=== PATIENT | female | born 1970 | race Caucasian/White ===

== ENCOUNTER 2018-04-29 08:22 | Day surgery (SDC) | payer BC, SELFPAY ==
--- NOTE | 2018-04-29 08:28 | EKG12_ITS ---
Test Reason : PRE OP Blood Pressure : / mmHG Vent. Rate : 080 BPM Atrial Rate : 080 BPM P-R Int : 138 ms QRS Dur : 086 ms QT Int : 376 ms P-R-T Axes : 053 045 053 degrees QTc Int : 433 ms Normal sinus rhythm Low voltage QRS (limb leads) Confirmed by PRINCESS MARSHALL, HARPREET ([id number]), material expeditor LEE LEDESMA ([id number]) on 05/04/2018 11:23:07 AM Referred By: Terri Roman Confirmed By:HARPREET SÁNCHEZ MD
[2018-04-29 08:49] LABS: Hematocrit 45.9 % (37-47); Hemoglobin 15.3 g/dl (12.0-15.0); Mean Corp Hgb Conc 33.3 g/gl (32-36); Mean Corpuscular Hgb 32.1 pg (27.0-32.0); Mean Corpuscular Volume 96.2 fL (81-99); Mean Platelet Vol. 10.2 fl (6.2-12.0); Platelet Count 180 K/mm3 (150-450); RBC Distribution Width CV 13.7 % (11.6-14.6); RBC Distribution Width SD 48.8 fl (35.1-43.9); Red Blood Count 4.77 M/mm3 (4.2-5.4); White Blood Count 8.2 K/mm3 (4.4-11.0)
[2018-04-29 08:51] LABS: Scan Indicated on CBC? Y/N NO
[2018-04-29 08:58] VITALS: BP 108/71; PULSE 88; RESP 16; TEMP 37.1; O2SAT 96; BMI 23.6
[2018-04-29 08:59] LABS: International Normalized Ratio 1.1; Partial Thromboplast Time 26.8 Seconds (24.1-36.2); Prothrombin Time (Protime)PT. 13.7 SECONDS (11.7-14.9)
[2018-04-29 09:04] LABS: AST(SGOT) 11 U/L (15-37); Alanine Aminotransfer ALT/SGPT 13 U/L (13-56); Albumin, Serum 3.3 g/dL (3.2-5.0); Alkaline Phosphatase 62 U/L (45-117); Bilirubin, Direct 0.14 mg/dL (0.00-0.30); Globulin 3.6 g/dL (2.2-4.2); Protein, Total 6.9 g/dL (6.4-8.2)
[2018-04-29] MEDS: Cefazolin 2 GM in 0.9% Normal Saline 100 ML IV (09:50)
--- NOTE | 2018-04-29 09:53 | DCINST_ITS ---
Discharge Diet: Light diet - advance as tolerated Discharge Activity: May not drive while taking narcotic pain medications. May shower in (days): 1 Ice area for (Minutes): 20 Lifting Restrictions: no lifting >20 lbs for 4 weeks Call your doctor if your incision/area has: Continuous Slow Oozing, Sudden Increased Bleeding, Increased Pain/ Swelling, Increased Redness, Foul Smelling Discharge, Swelling at the incision site Call your doctor if you observe: Fever of 101 or Higher Remove Dressing in (days):: 2 Additional Instructions: take colace-stool softener when taking percocet, ok to take ibuprofen 400-600 mg PO Q6h PRN between doses of percocet, no tylenol since it is already in percocet. take all pain meds with food. Allergies/Adverse Reactions: Allergies adhesive tape Allergy (Verified 04/22/18 14:01) Rash Medications to take at Discharge Oxycodone HCl/Acetaminophen [Percocet 5/325] 1 - 2 tablet PO Q6H PRN PRN 4 Days #30 tablet 04/29/18 Tamoxifen Citrate 20 mg PO DAILY 04/29/18 The following prescriptions were given: Oxycodone HCl/Acetaminophen [Percocet 5/325] 1 - 2 tablet PO Q6H PRN PRN 4 Days #30 tablet PRN Reason: Pain Primary Care Physician: Lauren Luna [Primary Care Provider] - Test Results: Test results from this visit will be discussed in further detail at your follow- up appointment, if applicable. Please Follow Up With: Terri Roman MD - call [phone] after 5PM/ weekends with any concerns When: call for f/u appt in 2 weeks will discuss return to work at that time. Proposed Discharge Date: 04/29/18
--- NOTE | 2018-04-29 10:00 | HERN_PTH ---
PATIENT: LORENA NUR LOC: [facility] [place] U#:[id number] AGE/SX: 47/F ROOM: RE04/29/[address]: Dr. Terri Roman MD : 1970 BED: DIS: 04/29/2018 SPEC #: [id number] RECD: 04/29/18 12:47 STATUS: RUDOLPH KAREN #: [id number] JONAH: 04/29/18 10:[address]: Terri Roman DEPT: SURGICAL PATHOLOGY RECD BY: Rodrigo Wasserman ENTERED: 04/29/18 13:06 SP TYPE: Hernia OTHR DR: Dr. Lauren Luna MD Tissues: HERNIA Procedures: Surgery Specimen Level II HEADER OPERATION: Right inguinal hernia repair with mesh, ventral hernia repair PRE-OP DIAGNOSIS: Right inguinal hernia, ventral hernia TISSUE SUBMITTED: Right inguinal hernia sac MICROSCOPIC DIAGNOSIS Soft tissue of right inguinal region, excision: Fibrofatty tissue consistent with hernia sac. AM:adolph 05/02/18 MICROSCOPIC DESCRIPTION Slides are reviewed. GROSS DESCRIPTION Received in fixative is one container labeled with the patient's name and designated right inguinal hernia sac. The specimen consists of a piece of gonzales soft tissue measuring 2 x 1 x 0.5 cm. The specimen is bisected and submitted entirely in one cassette. / SJ:adolph 04/29/18 TC:5 CPT: 48324
[2018-04-29] MEDS: Bupivacaine 0.25% 30 ML Vial (10:13)
--- NOTE | 2018-04-29 11:37 | PCM.OPRPT ---
Report of Operation Date of Procedure: 04/29/18 Pre-Operative Diagnosis: Ventral hernia ?2, right inguinal hernia Post-Operative Diagnosis: Same Surgery/Procedure Performed:: Repair of right inguinal hernia with mesh, repair of ventral hernias with mesh banking services officer: Arlette Farias Type of Anesthesia:: General/Supplemental Anesthesiologist: Watson Hannah Special Medications: Ancef 2 g IV ?1 Specimen's removed: Right inguinal hernia sac Estimated Blood Loss (mL): <10 cc Fluids Replaced: 700 cc Description of Procedure: Indications: This is a 47-year-old female who developed ventral hernias and a right inguinal hernia. Ventral hernia repair with mesh and inguinal hernia repair with mesh was elected. Description procedure: The patient was taken to the operating room. A timeout was completed verifying correct patient, procedure, site, positioning, and special equipment prior to beginning procedure. General anesthesia was induced. The abdomen and bilateral groins were prepped and draped in usual sterile fashion. An incision was marked in the natural skin crease and planned in the near the pubic tubercle. A field block was produced by raising skin wheals along the proposed incision in a skin wound was raised about 1 cm medial to the anterior superior iliac spine using 0.25% Marcaine for a total of 16 mL used throughout the procedure. Skin incision was made with the knife and deepened through the Cornelius and Camper's fascia with electrocautery until the aponeurosis of the external oblique was a identified. This was cleaned and the external ring exposed. Hemostasis was achieved in the wound. An incision was made in the midpoint of the external oblique aponeurosis in the direction of its fibers. The ilioinguinal nerve was identified and protected throughout the dissection. Flaps of the external oblique were developed cephalad and inferiorly. The round ligament was identified. It was gently dissected free at the pubic tubercle and encircled with umbilical tape. Attention was directed to the anterior medial aspect of the cord where an indirect hernia sac was identified. The sac was carefully dissected free from the cord down to the level of the internal ring; however, there were tight adhesions between the distal sac and the round ligament, ilioinguinal nerve. The sac was opened and contents reduced. A finger was passed into the peritoneal cavity and the floor of the inguinal canal was assessed and found to be adequate. The femoral canal was palpated and no hernia identified. The sac was twisted and suture ligated with a 2-0 silk. Redundant sac was excised and submitted to pathology. The stump of the sac was checked for hemostasis and allowed to retract into the abdomen. The ilioinguinal nerve was ligated. Attention then turned to the floor of the canal which appeared to be weakened without a well-defined defect or sac. A Bard keyhole mesh was cut to the appropriate size after suturing the hole with 2-0 silk [id number] suture. Beginning at the pubic tubercle, the mesh was sutured to the inguinal ligament inferiorly and the conjoined tendon superiorly using 2 continuous running sutures of 2-0 PDS sutures. Care was taken to assure the mesh was placed in the last fashion to avoid excess tension and no neurovascular structures were caught in the repair. Hemostasis was again checked. The vocal tape was removed. Area was irrigated with saline. External oblique aponeurosis was closed running suture of 3-0 Vicryl, taking care not to catch the ilioinguinal nerve in the suture line. Cornelius's fascia was closed with interrupted sutures of 3-0 Vicryl. Next attention was turned to the supraumbilical ventral hernias which were located with bedside ultrasound. Vertical midline supra umbilical incision was made with 10 blade scalpel. This was deepened to the fascia with hemostats and electrocautery. The larger of the 2 hernias was identified and the fascia was cleared around the hernia fat was allowed to reduce the defect was about 1.2 cm x 0.8 cm. About a centimeter inferior to this defect there is also a smaller defect that was only about 0.5 x 0.5 mm which again the fascia was cleared on the hernia and the fat was reduced. A figure of 8 1-0 Nurolon suture was used to close the smaller of the 2 ventral hernias. The [address] small [place] with strap hernia patch was used in the larger hernia and sutured the straps with 1-0 Nurolon and the defect was also closed with [id number] 1-0 Nurolon. Wound was irrigated and hemostasis was assured. Interrupted subcutaneous sutures of 3-0 Vicryl were placed. Skin of both incisions were closed with was closed running subcuticular suture of 4-0 Monocryl with Steri-Strips gauze and OpSite. Patient tolerated the procedure well and sent to the postanesthesia care in stable condition. Grafts/Implants Used: BARD Keyhole LOT [id number], VENTRALEX ST Hernia small LOT [id number] - Complications none
--- NOTE | 2018-04-29 11:46 | OP.PCM_ITS ---
Report of Operation Date of Procedure: 04/29/18 Pre-Operative Diagnosis: Ventral hernia ?2, right inguinal hernia Post-Operative Diagnosis: Same Surgery/Procedure Performed:: Repair of right inguinal hernia with mesh, repair of ventral hernias with mesh saas architect: Arlette Farias Type of Anesthesia:: General/Supplemental Anesthesiologist: Watson Hannah Special Medications: Ancef 2 g IV ?1 Specimen's removed: Right inguinal hernia sac Estimated Blood Loss (mL): <10 cc Fluids Replaced: 700 cc Description of Procedure: Indications: This is a 47-year-old female who developed ventral hernias and a right inguinal hernia. Ventral hernia repair with mesh and inguinal hernia repair with mesh was elected. Description procedure: The patient was taken to the operating room. A timeout was completed verifying correct patient, procedure, site, positioning, and special equipment prior to beginning procedure. General anesthesia was induced. The abdomen and bilateral groins were prepped and draped in usual sterile fashion. An incision was marked in the natural skin crease and planned in the near the pubic tubercle. A field block was produced by raising skin wheals along the proposed incision in a skin wound was raised about 1 cm medial to the anterior superior iliac spine using 0.25% Marcaine for a total of 16 mL used throughout the procedure. Skin incision was made with the knife and deepened through the Cornelius and Camper 's fascia with electrocautery until the aponeurosis of the external oblique was a identified. This was cleaned and the external ring exposed. Hemostasis was achieved in the wound. An incision was made in the midpoint of the external oblique aponeurosis in the direction of its fibers. The ilioinguinal nerve was identified and protected throughout the dissection. Flaps of the external oblique were developed cephalad and inferiorly. The round ligament was identified. It was gently dissected free at the pubic tubercle and encircled with umbilical tape. Attention was directed to the anterior medial aspect of the cord where an indirect hernia sac was identified. The sac was carefully dissected free from the cord down to the level of the internal ring; however, there were tight adhesions between the distal sac and the round ligament, ilioinguinal nerve. The sac was opened and contents reduced. A finger was passed into the peritoneal cavity and the floor of the inguinal canal was assessed and found to be adequate. The femoral canal was palpated and no hernia identified. The sac was twisted and suture ligated with a 2-0 silk. Redundant sac was excised and submitted to pathology. The stump of the sac was checked for hemostasis and allowed to retract into the abdomen. The ilioinguinal nerve was ligated. Attention then turned to the floor of the canal which appeared to be weakened without a well-defined defect or sac. A Bard keyhole mesh was cut to the appropriate size after suturing the hole with 2-0 silk diuspw-mu-acwjq suture. Beginning at the pubic tubercle, the mesh was sutured to the inguinal ligament inferiorly and the conjoined tendon superiorly using 2 continuous running sutures of 2-0 PDS sutures. Care was taken to assure the mesh was placed in the last fashion to avoid excess tension and no neurovascular structures were caught in the repair. Hemostasis was again checked. The vocal tape was removed. Area was irrigated with saline. External oblique aponeurosis was closed running suture of 3-0 Vicryl, taking care not to catch the ilioinguinal nerve in the suture line. Cornelius's fascia was closed with interrupted sutures of 3-0 Vicryl. Next attention was turned to the supraumbilical ventral hernias which were located with bedside ultrasound. Vertical midline supra umbilical incision was made with 10 blade scalpel. This was deepened to the fascia with hemostats and electrocautery. The larger of the 2 hernias was identified and the fascia was cleared around the hernia fat was allowed to reduce the defect was about 1.2 cm x 0.8 cm. About a centimeter inferior to this defect there is also a smaller defect that was only about 0.5 x 0.5 mm which again the fascia was cleared on the hernia and the fat was reduced. A figure of 8 1-0 Nurolon suture was used to close the smaller of the 2 ventral hernias. The ventralex [address] small [place] with strap hernia patch was used in the larger hernia and sutured the straps with 1-0 Nurolon and the defect was also closed with [id number] 1-0 Nurolon. Wound was irrigated and hemostasis was assured. Interrupted subcutaneous sutures of 3-0 Vicryl were placed. Skin of both incisions were closed with was closed running subcuticular suture of 4-0 Monocryl with Steri- Strips gauze and OpSite. Patient tolerated the procedure well and sent to the postanesthesia care in stable condition. Grafts/Implants Used: BARD Keyhole LOT [id number], VENTRALEX ST Hernia small LOT [id number] - Complications none
[2018-04-29 12:01] VITALS: BP 108/71; BP 114/66; PULSE 74; RESP 16; TEMP 36.3; O2SAT 95
[2018-04-29 12:15] VITALS: BP 108/68; BP 108/71; PULSE 67; RESP 18; O2SAT 94
[2018-04-29 12:28] VITALS: BP 107/76; BP 108/71; PULSE 64; RESP 18; TEMP 36.1; O2SAT 92
[2018-04-29] MEDS: oxyCODONE 5 MG Tablet PO (12:47)
[2018-04-29 13:07] VITALS: BP 108/71
== END 2018-04-29 13:13 | disposition home or self-care (01) ==
LOC: SDC 08:23 → AC 08:23
PROVIDERS: Family Provider Family Medicine; PCP Family Medicine; Visit Provider Surgery
PROC: (CPT 49505; principal; 2018-04-29 09:45)
DX: K43.9 Ventral hernia without obstruction or gangrene (principal); K40.90 Unilateral inguinal hernia, without obstruction or gangrene, not specified as recurrent; F17.200 Nicotine dependence, unspecified, uncomplicated; Z85.3 Personal history of malignant neoplasm of breast; Z85.828 Personal history of other malignant neoplasm of skin; Z79.899 Other long term (current) drug therapy
CPT/HCPCS: 49505; 49560; 49568; 36415; 80076; 85027; 85610; 85730; 88302; 93005; J7120; C1781; J2405

== ENCOUNTER → 2018-05-23 12:13 | Outpatient (CLI) | payer BC, SELFPAY ==
--- NOTE | 2018-05-23 08:00 | ASPS_PTH ---
PATIENT: LORENA NUR LOC: [facility]#:[id number] AGE/SX: 54/F ROOM: RE05/23/[address]: Dr. Herrera Cho MD : 1970 BED: DIS: SPEC #: [id number] RECD: 05/23/18 12:00 STATUS: RUDOLPH KAREN #: [id number] JONAH: 05/23/18 08:[address]: Herrera Cho DEPT: CYTOLOGY RECD BY: Jose Hernandez ENTERED: 05/23/18 13:24 SP TYPE: ASPIRATION OTHR DR: Dr. Lauren Luna MD Tissues: A - Thyroid gland, NOS B - Thyroid gland, NOS Procedures: Special Stain Group II Cytology Other HEADER OPERATION: Ultrasound guided fine needle aspiration, bilateral thyroid PRE-OP DIAGNOSIS: Multinodular goiter E04.2 TISSUE SUBMITTED: A - FNA, left thyroid, B - FNA, Right thyroid DIAGNOSIS CYTOLOGY A. Fine needle aspiration, left thyroid nodule (smears): Adequate for evaluation. Benign, consistent with colloid nodule. B. Fine needle aspiration, right thyroid nodule (smears): Adequate for evaluation. Benign, consistent with colloid nodule. AM:adolph 05/24/18 COMMENT Immediate cytologic evaluation to determine adequacy is not applicable. CYTOLOGY STUDY Slides are reviewed. CYTOLOGY GROSS A - Received are 18 smears labeled with the patient's name and designated per the requisition as FNA, left thyroid. Submitted for staining. B - Received are 18 smears labeled with the patient's name and designated per the requisition as FNA, right thyroid. Submitted for staining. /Casey 05/23/18 TC:5 CPT: 86286 x2
== END ==
PROVIDERS: Family Provider Family Medicine; PCP Family Medicine; Visit Provider Surgery
DX: E04.2 Nontoxic multinodular goiter (principal)
CPT/HCPCS: 88161; 88313

== ENCOUNTER → 2018-06-02 15:25 | Outpatient (CLI) | payer BC, SELFPAY | PROVIDERS: Family Provider Family Medicine; PCP Family Medicine; Visit Provider Nurse Practitioner | DX: Z12.31 Encounter for screening mammogram for malignant neoplasm of breast (principal); C50.412 Malignant neoplasm of upper-outer quadrant of left female breast; Z17.0 Estrogen receptor positive status [ER+] | CPT/HCPCS: 77063; 77067 ==

== ENCOUNTER → 2018-07-13 10:40 | Outpatient (CLI) | payer BC, SELFPAY ==
[2018-07-13 12:24] LABS: Free T3 3.1 pg/mL (2.18-3.98); T4 Free Direct 0.92 ng/dL (0.76-1.46); Thyroid Stim Hormone (TSH) 0.24 uIU/mL (0.358-3.74)
[2018-07-14 13:36] LABS: Thyroid Peroxidase AB 10 IU/mL (0-34)
== END ==
PROVIDERS: Family Provider Family Medicine; PCP Family Medicine; Referring Provider Nurse Practitioner; Visit Provider Nurse Practitioner
DX: E05.90 Thyrotoxicosis, unspecified without thyrotoxic crisis or storm (principal)
CPT/HCPCS: 36415; 84439; 84443; 84481; 86376

== ENCOUNTER → 2018-07-27 07:45 | Outpatient (CLI) | payer BC, SELFPAY ==
[2018-07-27 09:38] LABS: Free T3 3.3 pg/mL (2.18-3.98); T4 Free Direct 0.96 ng/dL (0.76-1.46); Thyroid Stim Hormone (TSH) 0.23 uIU/mL (0.358-3.74)
== END ==
PROVIDERS: Family Provider Family Medicine; PCP Family Medicine; Referring Provider Nurse Practitioner; Visit Provider Nurse Practitioner
DX: E05.90 Thyrotoxicosis, unspecified without thyrotoxic crisis or storm (principal)
CPT/HCPCS: 36415; 84439; 84443; 84481

== ENCOUNTER → 2018-08-23 17:14 | Outpatient (CLI) | payer BC, SELFPAY ==
[2018-07-13 09:20] VITALS: BMI 23.6
[2018-08-23 18:34] LABS: Free T3 3.3 pg/mL (2.18-3.98)
--- OUTSIDE RECORDS SUMMARY | 2018-10-19 09:31 | XMS RPT_ITS ---
:1970 Author Organization OHIP Support Name Relationship Address Phone CROP CHRISTINA Unavailable [address] + [place] [address] CHELSY, BASIL Unavailable [address] + [place] [address] CROP CHRISTINA Unavailable [address] + [place] [address] CHELSY, BASIL Unavailable [address] + [place] [address] CROP CHRISTINA Unavailable [address] + [place] [address] CHELSY, BASIL Unavailable [address] + [place] [address] CROP CHRISTINA Unavailable [address] + [place] [address] CHELSY, BASIL Unavailable [address] + [place] [address] CROP CHRISTINA Unavailable [address] + [place] [address] CHELSY, BASIL Unavailable [address] + [place] [address] CROP CHRISTINA Unavailable [address] + [place] [address] CHELSY, BASIL Unavailable [address] + [place] [address] CROP CHRISTINA Unavailable [address] + [place] [address] CHELSY, BASIL Unavailable [address] + [place] [address] CROP CHRISTINA Unavailable [address] + [place] [address] CHELSY, BASIL Unavailable [address] + [place] [address] CROP CHRISTINA Unavailable [address] + [place] [address] CHELSY, BASIL Unavailable [address] + [place] [address] CROP CHRISTINA Unavailable [address] + [place] [address] CHELSY, BASIL Unavailable [address] + [place] [address] CROP CHRISTINA Unavailable [address] + [place] [address] CHELSY, BASIL Unavailable [address] + [place] [address] CROP CHRISTINA Unavailable [address] + [place] [address] CHELSY, BASIL Unavailable [address] + [place] [address] CROP CHRISTINA Unavailable [address] + [place] [address] CHELSY, BASIL Unavailable [address] + [place] [address] CROP CHRISTINA Unavailable [address] + [place] [address] CHELSY, BASIL Unavailable [address] + [place] [address] CROP CHRISTINA Unavailable [address] + [place] [address] CHELSY, BASIL Unavailable [address] + [place] [address] CROP CHRISTINA Unavailable [address] + [place] [address] CHELSY, BASIL Unavailable [address] + [place] [address] Blackwell, Basil Unavailable Unavailable + CROP CHRISTINA Unavailable [address] + [place] [address] CHELSY, BASIL Unavailable [address] + [place] [address] Chelsy, Basil Unavailable Unavailable + CROP CHRISTINA Unavailable [address] + [place] [address] CHELSY, BASIL Unavailable [address] + [place] [address] Care Team Providers Name Role Phone ANSELMO, DAESUNG Attending Unavailable MASCI, CARLTON A Referring Unavailable ANSELMO, DAESUNG Attending Unavailable ANSELMO, DAESUNG Attending Unavailable ANSELMO, DAESUNG Attending Unavailable ANSELMO, DAESUNG Attending Unavailable ANSELMO, DAESUNG Attending Unavailable ANSELMO, DAESUNG Attending Unavailable ANSELMO, DAESUNG Attending Unavailable ANSELMO, DAESUNG Attending Unavailable ANSELMO, DAESUNG Referring Unavailable GARCIA, MARIANA (SEROLOGY TECHNICIAN) Attending Unavailable MASCI, CARLTON A Referring Unavailable GARCIA, MARIANA (SEROLOGY TECHNICIAN) Attending Unavailable MASCI, CARLTON A Referring Unavailable GARCIA, MARIANA (SEROLOGY TECHNICIAN) Referring Unavailable GARCIA, MARIANA (SEROLOGY TECHNICIAN) Attending Unavailable MASCI, CARLTON A Referring Unavailable ANSELMO, DAROBERTUNG Attending Unavailable ANSELMO, DAESUNG Referring Unavailable Jeremy, Lauren Attending Unavailable Jeremy, Lauren Referring Unavailable Jeremy, Lauren Primary Care Unavailable Jeremy, Lauren Attending Unavailable Jeremy, Lauren Referring Unavailable Jeremy, Lauren Primary Care Unavailable Fifi Mathias STAFF NUCLEAR MEDICINE TECHNOLOGIST-C Attending Unavailable Fifi Mathias STAFF NUCLEAR MEDICINE TECHNOLOGIST-C Referring Unavailable Jeremy, Lauren Primary Care Unavailable Fifi Mathias STAFF NUCLEAR MEDICINE TECHNOLOGIST-C Attending Unavailable ShoFifi raymond STAFF NUCLEAR MEDICINE TECHNOLOGIST-C Referring Unavailable Jeremy, Lauren Primary Care Unavailable Robotham, Terri Attending Unavailable Jeremy, Lauren Referring Unavailable Jeremy, Lauren Primary Care Unavailable Robotham, Terri Attending Unavailable Robotham, Terri Referring Unavailable Jeremy, Lauren Primary Care Unavailable Robotham, Terri Consulting Unavailable Robotham, Terri Attending Unavailable Robotham, Terri Referring Unavailable Jeremy, Lauren Primary Care Unavailable Robotham, Terri Attending Unavailable Jeremy, Lauren Referring Unavailable Jeremy, Lauren Primary Care Unavailable Twin LakesHerrera Attending Unavailable Jeremy, Lauren Referring Unavailable Jeremy, Lauren Primary Care Unavailable Jeremy, Lauren Primary Care Unavailable Mariana Garcia STAFF NUCLEAR MEDICINE TECHNOLOGIST-C Attending Unavailable Robotham, Terri Attending Unavailable Jeremy, Lauren Referring Unavailable Marquis, Herrera Attending Unavailable Jeremy, Lauren Primary Care Unavailable Marquis, Herrera Referring Unavailable [place], Herrera Attending Unavailable Jeremy, Lauren Referring Unavailable Jeremy, Lauren Primary Care Unavailable Marquis, Herrera Attending Unavailable Jeremy, Lauren Referring Unavailable Jeremy, Lauren Primary Care Unavailable Fifi Mathias STAFF NUCLEAR MEDICINE TECHNOLOGIST-C Attending Unavailable ShookFifi STAFF NUCLEAR MEDICINE TECHNOLOGIST-C Referring Unavailable Jeremy, Lauren Primary Care Unavailable Fifi Mathias STAFF NUCLEAR MEDICINE TECHNOLOGIST-C Attending Unavailable Jeremy, Lauren Referring Unavailable Robotham, Terri Attending Unavailable MoodCarlton cook Attending Unavailable Robotham, Terri Referring Unavailable Robotham, Terri Attending Unavailable Jeremy, Lauren Referring Unavailable Jeremy, Lauren Primary Care Unavailable Fifi Mathias STAFF NUCLEAR MEDICINE TECHNOLOGIST-C Attending Unavailable Jeremy, Lauren Referring Unavailable PROBLEMS PROBLEMS DATE TYPE CONDITION / CODE ATTENDING STATUS SOURCE Unknown E07.9 - Disorder of Fifi Mathias Active [place] 8 thyroid, unspecified / STAFF NUCLEAR MEDICINE TECHNOLOGIST-C [facility] E07.9(ICD-10) Hospital Repository Unknown E05.90 - Fifi Mathias Active [place] 8 Thyrotoxicosis, STAFF NUCLEAR MEDICINE TECHNOLOGIST-C [facility] unspecified without Hospital thyrotoxic crisis or Repository storm / E05.90(ICD-10) Active Malignant neoplasm of NA [facility] 7 upper-outer quadrant [facility] Main of left female breast [place] / C50.412(ICD-10) Repository Active Estrogen receptor NA [facility] 7 positive status (ER+) Clinic Main / Z17.0(ICD-10) [place] Repository Unknown E04.2 - Nontoxic [place], Active [place] 8 multinodular goiter / [facility] E04.2(ICD-10) Hospital Repository Unknown G89.18 - Other [facility] [place] 8 postprocedural pain / [facility] G89.18(ICD-10) Hospital Repository Unknown R94.31 - Abnormal [place], Active [place] 8 electrocardiogram [facility] Er [ECG] [EKG] / Hospital R94.31(ICD-10) Repository Admitting Nontoxic multinodular Jeremy, Active [place] 8 Diagnosis goiter / E04.2(ICD-10) [facility] System Repository Admitting Other specified soft [facility] / [facility] M79.89(ICD-10) Repository PROCEDURES PROCEDURES No Procedure Records FoundRESULTS RESULTS OFFICE VISIT REPORT Observed: 08/29/2018 Status: F Source: [place] 9:11 PM [facility] [address] [place] [address] OFFICE VISIT Date of Service: 08/29/18 MR#: [id number] Acct: [id number] Patient: LORENA MELÉNDEZ Rep #: [id number] : 1970 Provider: Fifi Mathias NP Age/Sex: 47/F Location: [facility] Status: Signed Intake Vital Signs08/29/18 Height 5 ft 3 in 08/29/18 Weight: 134 lb 2 oz 08/29/18 Body Mass Index (BMI) 23.7 08/29/18 Blood Pressure 119/77 08/29/18 Blood Pressure Location Rt popliteal 08/29/18 Blood Pressure Position Sitting Intake Visit Reasons: Thyroid dysfunction Grommet Worker Required: No Accompanied by: Self Allergies adhesive tape Allergy (Verified 08/29/18 15:58) Rash Medications Tamoxifen Citrate 20 mg PO DAILY 04/29/18 [History Confirmed 08/29/18] PFSH Medical History Invasive ductal carcinoma of left breast (Acute) H. pylori infection (Acute) Pancreatic cyst (Acute) Right inguinal hernia (Acute) Thyroid dysfunction (Acute) Ulcer (Acute) Ventral hernia (Acute) Surgical History History of right inguinal hernia repair (Acute 04/2018) Atypical ductal hyperplasia of breast (Acute) H/O tubal ligation (Acute) S/P lumpectomy, left breast (Acute) Family History Mother Breast cancer Arthritis Father CAD (coronary artery disease) Cancer Social History Smoking Status: Current every day smoker second hand exposure: Yes alcohol intake: current alcohol intake frequency: holidays/special occasions only substance use type: does not use caffeine: Yes what type of physical activity do you participate in: none frequency: does not exercise seatbelt use: always HPI HPI Details: LORENA MELÉNDEZ, is a 47 F who presents to the office today for follow up of thyroid. States she was initially found to have suppressed TSh by PCP as well as multiple nodules on her thyroid. She did have FNA done by Dr. Cho and the pathology was negative. She is here today regarding her lab values. She reports overall feeling reasonably well. She has just completed radiation in October 2017 for breast cancer. She also had surgery approximately 8 weeks ago for double hernia. Severity, modifying factors, context, and associated signs and symptoms are as follows: Thyroid pain: No Energy: reasonable Sleep: awakened refreshed Temp: No intolerance, night sweats GI: Normal bowel Weight: Flucuates Eyes: last year change in vision Memory: unchanged Diaphoresis: Not significant Skin: Dry Hair : Unchanged Neuro: No numbness, tingling or tremors 08/23/18 TSH 0.40 normal range 04/2018 TSH 0.046 05/2018 TSH 0.148 All other labs Free T 4 and T 3 normal. Negative for TRAB Exam Const General: comfortable, well groomed, anxious Nutritional Appearance: well nourished Orientation: oriented x3 HENMT Head: normal to inspection, atraumatic Ears: hearing grossly normal bilaterally Nose: external nose normal Face and sinus: normal facial exam Mouth: oral mucosae normal, moist mucous membranes Neck Neck mass: Yes Thyroid: multiple nodules Resp Effort AND Inspection: normal respiratory effort, able to speak in complete sentences, symmetric chest movement Auscultation: Bilateral: Clear to Auscultation Cardio Rate: regular rate Rhythm: regular rhythm Heart Sounds: S1 normal, S2 normal GI Inspection: normal to inspection Musc Musculoskeletal: No muscle weakness Skin General: no rashes or lesions noted Neuro General: oriented x3 Speech: speech normal Gait: normal gait Motor: muscle tone normal throughout Extrem General: no edema, normal capillary refill, normal to inspection Psych Appearance: well kempt Mental Status: mental status grossly normal Mood: congruent mood Affect: normal affect Speech and Movement: speech and movement normal Thought Process: normal Thought Content: normal Judgment: judgment good ROS Const Constitutional: Positive for night sweats; no anorexia, body ache, chills, fatigue, fever(s), frequent falls, decreased energy, malaise, weakness, weight change, sleep problems, abnormal sleep pattern, change in appetite, other, headache(s), snoring or excessive sweating Eyes Eyes: Positive for change in vision; no blurry vision, double vision, discharge, dry eyes, bulging eyes, floaters, visual disturbances, eye pain, light sensitivity, spots in vision, tunnel vision or other ENT ENT: No abnormal hearing, ear pain, ear discharge, ear pressure, hearing loss, tinnitus, dizziness/vertigo, balance problems, nosebleed/epistaxis, nasal congestion, nasal obstruction, nose pain, sinus pressure, sinus pain, nasal discharge, post nasal drip, headache(s), facial pain, dental pain, dry mouth, bad breath, hoarseness, lip swelling, mouth lesions, mouth pain, sore throat, tongue swelling, throat swelling, other, difficulty swallowing or neck pain Resp Respiratory: No cough, change in phlegm color, chest congestion, excessive phlegm production, hemoptysis, pain on inspiration, shortness of breath, pain with cough, snoring, stridor, wheezing or other Cardio Cardiology: No chest pain at rest, chest pain with exertion, leg pain with exertion, excessive sweating, shortness of breath, dyspnea on exertion, generalized swelling, irregular heart rhythm, lightheadedness, orthopnea, radiating jaw, neck or arm pain, fast heart rate, slow heart rate, palpitations or other Gastro GI: No abdominal pain, belching, bloating, change in bowel habits, change in stool character, coffee ground emesis, constipation, cramping, diarrhea, heartburn, difficulty swallowing, feeling full early, excessive flatus, incontinent of stools, Vomiting blood/hematemesis, blood in stool, loose stools, Black,tarry stools, nausea/dyspepsia, pain with swallowing, vomiting or other Genitourinary-Female: No difficulty urinating, burning urination, painful urination, urinary incontinence, urinary frequency, urinary urgency, urinary hesitancy, urinary retention, blood in urine, Frequent nighttime urination/ nocturia, post void dribbling, suprapubic fullness, side pain, sexual problems, genital lesions, genital itching, hot flashes, abnormal periods, abnormal vaginal bleeding, absent period, painful periods, light periods, heavy periods, difficulty getting , painful intercourse, pelvic pain, vaginal dryness, vaginal odor, Vaginal Itching or other Musc Musculoskeletal: Positive for numbness (R arm elbow to wrist) and tingling (r arm elbow to wrist); no abnormal walking, joint pain, back pain, deformity, joint swelling, limited range of motion, loss of height, muscle cramps, muscle weakness, decreased muscle mass, body aches, neck pain, radiating pain into limb, stiffness or other Skin Skin: No acne, hair loss, change in hair, nail changes, boil, change in skin color, dry skin, redness, excessive hair growth, yellowing of the skin, lesions, itching, rash, skin pain, skin ulcer, sores, skin swelling, wounds or other Breast Breast: No other Neuro Neurology: Positive for numbness (R arm elbow to wrist) and tingling (r arm elbow to wrist); no frequent falls, weakness, visual disturbances, abnormal hearing, headache(s) or abnormal walking Psych Psychiatric: No abnormal sleep pattern, No change in appetite Endo Endocrine: No fatigue, other or excessive sweating Aller/Imm Allergy/Immunologic: No lip swelling, tongue swelling, throat swelling, wheezing or itchy eyes Exam Musc Musculoskeletal: No muscle weakness Assessment AND Plan 1. Multinodular goiter E04.2 Plan With normal TSH and negative antibodies with follow as thyroiditis. No medication at this time. Patient will repeat labs in 3 months, sooner if there is a change in her sense of well being. Repeat US of thyroid in 02/2018 Orders Orders: Plan Detail Other Orders Orders: Additional Comments 1. Please schedule follow up in 3 months. 2. Lab work one week before appointment. 3. Discussed importance of regular exercise and recommend starting or continuing a regular exercise program for good health. 4. The patient was encouraged to lmaintain weight for good health Spent approximately 30 minutes with patient with over 50% of time spent in discussion and counseling regarding medication , symptoms and treatment of hypothyroidism vs thyroiditis. Coding Level of Care Code Off vis,est,level 4 Diagnoses Multinodular goiter E04.2 08/29/182110 <Electronically signed by Fifi SGEURA> Date Fifi SEGURA Cosigner Signature: Date (if applicable) CC: FREE T3 Collected: 08/23/2018 Status: F Source: [place] 5:36 PM [facility] REPOSITORY TYPE CODE TESTS RESULT OUT OF RANGE REFERENCE UNITS LAB L501.74625 2.18-3.98 pg/mL Normal FREE T3 3.3 Performed By: #### L501.69826, L501.9520, L506.0400 #### [facility] [address] [facility]. [place], [place], [id number] THYROID STIM HORMONE Collected: 08/23/2018 Status: F Source: [place] (TSH) 5:36 PM [facility] REPOSITORY TYPE CODE TESTS RESULT OUT OF RANGE REFERENCE UNITS LAB L501.9520 0.358-3.74 uIU/mL Normal TSH 0.40 Performed By: #### L501.76725, L501.9520, L506.0400 #### [facility] [address] [place] [address]. [place], [place], [id number] T4 FREE DIRECT Collected: 08/23/2018 Status: F Source: [place] 5:36 PM [facility] REPOSITORY TYPE CODE TESTS RESULT OUT OF RANGE REFERENCE UNITS LAB L506.0400 0.76-1.46 ng/dL Normal T4 FREE 1.00 DIRECT Performed By: #### L501.22595, L501.9520, L506.0400 #### [facility] [address] [place] [address]. [place], [place], [id number] FREE T3 Collected: 07/27/2018 Status: F Source: [place] 7:53 AM [facility] REPOSITORY TYPE CODE TESTS RESULT OUT OF RANGE REFERENCE UNITS LAB [id number] 2.18-3.98 pg/mL Normal FREE T3 3.3 Performed By: #### L501.25485, L501.9520, L506.0400 #### [facility] [facility] [place], [address] THYROID STIM HORMONE Collected: 07/27/2018 Status: F Source: [place] (TSH) 7:53 AM [facility] REPOSITORY TYPE CODE TESTS RESULT OUT OF RANGE REFERENCE UNITS LAB L501.9520 0.358-3.74 uIU/mL Low TSH 0.23 Performed By: #### L501.79291, L501.9520, L506.0400 #### [facility] [facility] [address] [place], [address] T4 FREE DIRECT Collected: 07/27/2018 Status: F Source: [place] 7:53 AM [facility] REPOSITORY TYPE CODE TESTS RESULT OUT OF RANGE REFERENCE UNITS LAB L506.0400 0.76-1.46 ng/dL Normal T4 FREE 0.96 DIRECT Performed By: #### L501.74568, L501.9520, L506.0400 #### [facility] [address] [place], [address] OFFICE VISIT REPORT Observed: 07/24/2018 Status: F Source: [place] 4:32 PM [facility] REPOSITORY [facility] [address] [place] [address] OFFICE VISIT Date of Service: 07/13/18 MR#: [id number] Acct: [id number] Patient: LORENA MELÉNDEZ Rep #: [id number] : 1970 Provider: Fifi Mathias NP Age/Sex: 47/F Location: [facility] Status: Signed Intake Vital Signs07/13/18 Height 5 ft 3 in 07/13/18 Weight: 133 lb 6 oz 07/13/18 Body Mass Index (BMI) 23.6 07/13/18 Blood Pressure 117/72 07/13/18 Blood Pressure Location Rt popliteal 07/13/18 Blood Pressure Position Sitting Intake Visit Reasons: Thyroid dysfunction Grommet Worker Required: No Accompanied by: Self Allergies adhesive tape Allergy (Verified 07/13/18 09:16) Rash Medications Tamoxifen Citrate 20 mg PO DAILY 04/29/18 [History Confirmed 07/13/18] [facility] Medical History Invasive ductal carcinoma of left breast (Acute) Thyroid dysfunction (Acute) H. pylori infection (Acute) Pancreatic cyst (Acute) Right inguinal hernia (Acute) Ulcer (Acute) Ventral hernia (Acute) Surgical History History of right inguinal hernia repair (Acute 04/2018) Atypical ductal hyperplasia of breast (Acute) H/O tubal ligation (Acute) S/P lumpectomy, left breast (Acute) Family History Mother Breast cancer Arthritis Father CAD (coronary artery disease) Cancer Social History Smoking Status: Current every day smoker second hand exposure: Yes alcohol intake: current alcohol intake frequency: holidays/special occasions only substance use type: does not use caffeine: Yes what type of physical activity do you participate in: none frequency: does not exercise seatbelt use: always Questionnaire Depression Screen PHQ-2/9 PHQ-2 Over the last 2 weeks, how often have you been bothered by any of the following problems? 1. Little interest or pleasure in doing things: not at all 2. Feeling down, depressed, or hopeless: not at all Total score: 0 If score is 2 or greater, continue Source: Developed by Drs. Andrew Sexton, Digna Barnett, Rene Hernández and colleagues, with an educational ai from [employer]. Scoring: Total Score Depression Severity Action 1-4 Minimal depression No action needed 5-9 Mild depression Repeat PHQ-9 at follow up 10-14 Moderate depression Make tx plan,consider counseling, fup, prescription HPI HPI Details: LORENA MELÉNDEZ, is a 47 F who presents to the office today for consult of thyroid. States she was found to have suppressed TSh by PCP as well as multipl nodules on her thyroid. She did have FNA done by Dr. Cho and the pathology was negative. She is here today regarding her lab values. She reports overall feeling reasonably well. She has just completed radiation in October 2017 for breast cancer. She also had surgery approximately 8 weeks ago for double hernia. Severity, modifying factors, context, and associated signs and symptoms are as follows: Thyroid pain: No Energy: reasonable Sleep: awakened refreshed Temp: No intolerance, night sweats GI: Normal bowel Weight: Flucuates Eyes: last year change in vision Memory: unchanged Diaphoresis: Not significant Skin: Dry Hair : Unchanged Neuro: No numbness, tingling or tremors Has had two TSH values that are mildly suppressed. 04/2018 TSH 0.046 05/2018 TSH 0.148 All other labs Free T 4 and T 3 normal ROS Const Constitutional: Positive for night sweats and weight change; no anorexia, body ache, chills, fatigue, fever(s), frequent falls, decreased energy, malaise, weakness, sleep problems, abnormal sleep pattern, change in appetite, other, headache(s), snoring or excessive sweating Eyes Eyes: Positive for blurry vision and change in vision; no double vision, discharge, dry eyes, bulging eyes, floaters, visual disturbances, eye pain, light sensitivity, spots in vision, tunnel vision or other ENT ENT: Positive for nasal congestion, sinus pressure and nasal discharge; no abnormal hearing, ear pain, ear discharge, ear pressure, hearing loss, tinnitus, dizziness/vertigo, balance problems, nosebleed/epistaxis, nasal obstruction, nose pain, sinus pain, post nasal drip, headache(s), facial pain, dental pain, dry mouth, bad breath, hoarseness, lip swelling, mouth lesions, mouth pain, sore throat, tongue swelling, throat swelling, other, difficulty swallowing or neck pain Resp Respiratory: Positive for cough; no change in phlegm color, chest congestion, excessive phlegm production, hemoptysis, pain on inspiration, shortness of breath, pain with cough, snoring, stridor, wheezing or other Cardio Cardiology: No chest pain at rest, chest pain with exertion, leg pain with exertion, excessive sweating, shortness of breath, dyspnea on exertion, generalized swelling, irregular heart rhythm, lightheadedness, orthopnea, radiating jaw, neck or arm pain, fast heart rate, slow heart rate, palpitations or other Gastro GI: No abdominal pain, belching, bloating, change in bowel habits, change in stool character, coffee ground emesis, constipation, cramping, diarrhea, heartburn, difficulty swallowing, feeling full early, excessive flatus, incontinent of stools, Vomiting blood/hematemesis, blood in stool, loose stools, Black,tarry stools, nausea/dyspepsia, pain with swallowing, vomiting or other Genitourinary-Female: No difficulty urinating, burning urination, painful urination, urinary incontinence, urinary frequency, urinary urgency, urinary hesitancy, urinary retention, blood in urine, Frequent nighttime urination/ nocturia, post void dribbling, suprapubic fullness, side pain, sexual problems, genital lesions, genital itching, hot flashes, abnormal periods, abnormal vaginal bleeding, absent period, painful periods, light periods, heavy periods, difficulty getting , painful intercourse, pelvic pain, vaginal dryness, vaginal odor, Vaginal Itching or other Musc Musculoskeletal: No abnormal walking, joint pain, back pain, deformity, joint swelling, limited range of motion, loss of height, muscle cramps, muscle weakness, decreased muscle mass, body aches, neck pain, numbness, radiating pain into limb, stiffness, tingling or other Skin Skin: Positive for dry skin; no acne, hair loss, change in hair, nail changes, boil, change in skin color, redness, excessive hair growth, yellowing of the skin, lesions, itching, rash, skin pain, skin ulcer, sores, skin swelling, wounds or other Breast Breast: No other Neuro Neurology: No frequent falls, weakness, visual disturbances, abnormal hearing, headache(s), abnormal walking, numbness or tingling Psych Psychiatric: No abnormal sleep pattern, No change in appetite Endo Endocrine: No fatigue, other or excessive sweating Aller/Imm Allergy/Immunologic: No lip swelling, tongue swelling, throat swelling, wheezing or itchy eyes Exam Const General: comfortable, well groomed, anxious Nutritional Appearance: well nourished Orientation: oriented x3 HENMT Head: normal to inspection, atraumatic Ears: hearing grossly normal bilaterally Nose: external nose normal Face and sinus: normal facial exam Mouth: oral mucosae normal, moist mucous membranes Neck Neck mass: Yes Thyroid: multiple nodules Resp Effort AND Inspection: normal respiratory effort, able to speak in complete sentences, symmetric chest movement Auscultation: Bilateral: Clear to Auscultation Cardio Rate: regular rate Rhythm: regular rhythm Heart Sounds: S1 normal, S2 normal GI Inspection: normal to inspection Musc Musculoskeletal: No muscle weakness Skin General: no rashes or lesions noted Neuro General: oriented x3 Speech: speech normal Gait: normal gait Motor: muscle tone normal throughout Extrem General: no edema, normal capillary refill, normal to inspection Psych Appearance: well kempt Mental Status: mental status grossly normal Mood: congruent mood Affect: normal affect Speech and Movement: speech and movement normal Thought Process: normal Thought Content: normal Judgment: judgment good Assessment AND Plan 1. Multinodular goiter E04.2 Plan Recheck labs at this time. Also need to check antiboides. Determine if need for I23 uptake and scan Discussed potential diagnosis and treatment options with patient. Will call patient with labs results and treatment. Plan Detail Other Orders Orders: Additional Comments Spent approximately 45 minutes with patient with over 50% of time spent in discussion and counseling regarding medication adjustment, symptoms and treatment of hyperthyroidism Coding Level of Care Code Off vis,new,level 4 Diagnoses Multinodular goiter E04.2 07/24/18 1632 <Electronically signed by Fifi SEGURA> Date Fifi SEGURA Cosigner Signature: Date (if applicable) CC: FREE T3 Collected: 07/13/2018 Status: F Source: [place] 10:57 AM [facility] REPOSITORY TYPE CODE TESTS RESULT OUT OF RANGE REFERENCE UNITS LAB [id number] 2.18-3.98 pg/mL Normal FREE T3 3.1 Performed By: #### L501.78479, L501.9520, L506.0400 #### [facility] [address] [place], [place], [id number] THYROID STIM HORMONE Collected: 07/13/2018 Status: F Source: [place] (TSH) 10:57 AM [facility] REPOSITORY TYPE CODE TESTS RESULT OUT OF RANGE REFERENCE UNITS LAB [id number] 0.358-3.74 uIU/mL Low TSH 0.24 Performed By: #### L501.29965, L501.9520, L506.0400 #### [facility] [address] [place], [address] T4 FREE DIRECT Collected: 07/13/2018 Status: F Source: [place] 10:57 AM [facility] REPOSITORY TYPE CODE TESTS RESULT OUT OF RANGE REFERENCE UNITS LAB L506.0400 0.76-1.46 ng/dL Normal T4 FREE 0.92 DIRECT Performed By: #### L501.38420, L501.9520, L506.0400 #### [facility] [address] [place], [address] THYROID PEROXIDASE AB Collected: 07/13/2018 Status: F Source: [place] 10:57 AM [facility] REPOSITORY TYPE CODE TESTS RESULT OUT OF RANGE REFERENCE UNITS LAB L3300.6900 0-34 IU/mL Normal TPO AB 10 5122 Result Comment: Performed at: [facility] [id number] Special Education Aide: Mathieu nAgel PhD, Phone: [phone] Performed By: #### L3300.6900 #### [facility] (refer to report for specific site) refer to report for address and phone number CNOV Observed: 06/23/2018 Status: COMPLETED Source: [place] 3:00 PM [facility] REPOSITORY Office Visit (RADTWS) LORENA MELÉNDEZ ([id number]) 1970 F Date Time Provider Department 06/23/18 3:00 PM ARCHANA BRIONES During your visit today, we recorded the following information about you: Temperature Pulse Respiration Blood pressure 98.3 degrees 82/minute 18/minute 115/76 Weight Last Period 60.1 kg 11/25/17 Raoul Maurice, RN, RN 06/23/2018 2:51 PM Signed Radiation Therapy - Nursing Note (Follow-up) PATIENT NAME: Lorena Meléndez PATIENT June 23, 2018 [facility] FACILITY/LOCATION: [place] Reason for visit: Follow up. Subjective Data Pt has been having increased ruptured blood vessels, has had thyroid biopsies per Dr Cho which pt says are negative for cancer. Pt to see adjunct psychology faculty member mid June. This issue started prior to breast cancer treatments though. Additional Data Do you want to see a Engineering Technical Analyst? No Nursing Assessment Fatigue: none Appetite: good Weight Gain/Loss: No Last 6 Encounter Wt Readings: Date: Wt: 06/23/2018 60.1 kg (132 lb 8 oz) 06/23/2018 60.1 kg (132 lb 8 oz) 03/18/2018 59.4 kg (131 lb) 12/08/2017 64.9 kg (143 lb) 12/06/2017 66.9 kg (147 lb 8 oz) 09/15/2017 62.6 kg (138 lb) Bowel Function: normal bowel movements Bone Pain: none Focused Assessment BREAST: Lymphedema Assessment: Is the patient noting any swelling? No. Was KP approved? pt did not receive tablet SIGNED by: FELECIA Craft MD 06/23/2018 3:47 PM Signed Radiation Oncology - Follow Up Note PATIENT NAME: Lorena Meléndez PATIENT DIAGNOSIS: Stage IA, T1bN0, invasive ductal carcinoma of the left breast s/p lumpectomy and sentinel node biopsy. It's ER positive (>95%, moderate), CT positive (>95%, moderate) and Her2/maegan 0, s/p radiation treatment finished on 11/11/17. She is on Tamoxifen. INTERVAL HISTORY: She is here for a routine follow-up in seven months after her radiation treatment. She denies any pain or lumps in the breasts. She had bilateral screening mammogram on 06/02/18 and it showed a small well defined right breast retroareolar nodule. US of the right breast today showed 1 cm x 0.5 cm x 1 cm oval cyst consistent with a simple cyst and benign. ALLERGIES No Known Allergies MEDICATIONS: tamoxifen (NOLVADEX) 20 mg tablet Take 1 tablet by mouth once daily. multivitamin tablet Take 1 tablet by mouth once daily. PHYSICAL EXAM: VS: BP 115/76 Pulse 82 Temp 36.8 ?C (98.3 ?F) Resp 18 Wt 60.1 kg (132 lb 8 oz) LMP 11/25/2017 BMI 23.85 kg/m? KPS: 90 General Appearance: Alert and oriented. No acute distress. No edema in upper extremities. ASSESSMENT AND PLAN: Clinically stable. She is regularly followed with Mariana Garcia and I will see her as needed. Signed by: Archana Briones MD cc: Lauren Luna MD ([place] [phone] Referring Provider: ARCHANA BRIONES [[id number]] Allergies As of Date: 06/23/2018 (No Known Allergies) Date Reviewed: 06/23/2018 Reviewed by: Raoul Mclaughlin) FELECIA Maurice - Fully Assessed Reason for Visit: Recheck [92] Primary Visit Diagnosis:Malignant neoplasm of upper-outer quadrant of left breast in female, estrogen receptor positive (HCC) [C50.412, Z17.0] Prescriptions as of 06/23/2018 Sig: TAMOXIFEN 20 MG TABLET Take 1 tablet by mouth once d* MULTIVITAMIN TABLET Take 1 tablet by mouth once d* Problem List As Of Date 06/23/2018 Noted Resolved History of melanoma [Z85.820] INVALID FOR* More... Malignant neoplasm of upper-outer quadrant of l*INVALID FOR* Visit Notes: >> Raoul Mclaughlin) FELECIA Maurice [facility] Jun 23, 2018 2:48 PM Status: Signed Radiation Therapy - Nursing Note (Follow-up) PATIENT NAME: Lorena Meléndez PATIENT June 23, 2018 [facility] FACILITY/LOCATION: [place] Reason for visit: Follow up. Subjective Data Pt has been having increased ruptured blood vessels, has had thyroid biopsies per Dr Cho which pt says are negative for cancer. Pt to see adjunct psychology faculty member mid June. This issue started prior to breast cancer treatments though. Additional Data Do you want to see a Engineering Technical Analyst? No Nursing Assessment Fatigue: none Appetite: good Weight Gain/Loss: No Last 6 Encounter Wt Readings: Date: Wt: 06/23/2018 60.1 kg (132 lb 8 oz) 06/23/2018 60.1 kg (132 lb 8 oz) 03/18/2018 59.4 kg (131 lb) 12/08/2017 64.9 kg (143 lb) 12/06/2017 66.9 kg (147 lb 8 oz) 09/15/2017 62.6 kg (138 lb) Bowel Function: normal bowel movements Bone Pain: none Focused Assessment BREAST: Lymphedema Assessment: Is the patient noting any swelling? No. Was approved? pt did not receive tablet SIGNED by: Raoul Maurice RN Encounter Status:Closed by ARCHANA BRIONES MD on 06/23/18 PROGRESS Observed: 06/23/2018 Status: COMPLETED Source: [place] 2:52 PM [facility] REPOSIT[facility] HNO ID: [id number] Author: Archana Briones Service: (none) Author Type: Physician Type: Progress Notes Filed: 06/23/2018 3:47 PM Note Text: Radiation Oncology - Follow Up Note PATIENT NAME: Lorena Meléndez PATIENT DIAGNOSIS: Stage IA, T1bN0, invasive ductal carcinoma of the left breast s/p lumpectomy and sentinel node biopsy. It's ER positive (>95%, moderate), CT positive (>95%, moderate) and Her2/maegan 0, s/p radiation treatment finished on 11/11/17. She is on Tamoxifen. INTERVAL HISTORY: She is here for a routine follow-up in seven months after her radiation treatment. She denies any pain or lumps in the breasts. She had bilateral screening mammogram on 06/02/18 and it showed a small well defined right breast retroareolar nodule. US of the right breast today showed 1 cm x 0.5 cm x 1 cm oval cyst consistent with a simple cyst and benign. ALLERGIES No Known Allergies MEDICATIONS: tamoxifen (NOLVADEX) 20 mg tablet Take 1 tablet by mouth once daily. multivitamin tablet Take 1 tablet by mouth once daily. PHYSICAL EXAM: VS: BP 115/76 Pulse 82 Temp 36.8 ?C (98.3 ?F) Resp 18 Wt 60.1 kg (132 lb 8 oz) LMP 11/25/2017 BMI 23.85 kg/m? KPS: 90 General Appearance: Alert and oriented. No acute distress. No edema in upper extremities. ASSESSMENT AND PLAN: Clinically stable. She is regularly followed with Mariana Garcia and I will see her as needed. Signed by: Archana Briones MD cc: Lauren Luna MD ([facility]) [address] [place] [address] PROGRESS Observed: 06/23/2018 Status: COMPLETED Source: [place] 2:05 PM [facility] REPOSITORY HNO ID: [id number] Author: Mariana Garcia Service: (none) Author Type: Nurse Practitioner Type: Progress Notes Filed: 06/23/2018 3:23 PM Note Text: Chief Complaint Patient presents with: Established Patient HPI: Lorena Meléndez is a 47 year old female who presents here today for follow up breast cancer. Per Dr. Colmenares's previous note: H/o abnormality in left breast on a screening mammogram done in April 2017. ? Biopsy 06/03/2017: MICROSCOPIC DIAGNOSIS Left breast, stereotactic needle core biopsy: ?Intraductal hyperplasia with atypia. ?Focal atypical lobular hyperplasia. See comment. ?Frequent microcalcifications. ? Underwent needle localization with excisional biopsy on 07/14/2017: MICROSCOPIC DIAGNOSIS Left breast, needle localization biopsy: ?Invasive ductal carcinoma. ?Ductal carcinoma in situ. ?Atypical lobular hyperplasia. ?See cancer summary below. ? INVASIVE BREAST CANCER SUMMARY: ??Specimen ??partial breast ??Procedure ??excision with wire-guided localization ??Lymph node sampling ??no lymph node present ??Specimen integrity ??single intact specimen ??Specimen size ??4 x 3.5 x 2 cm ??Specimen laterality - left ??Tumor site ??not specified ??Tumor size ??0.6 x 0.6 x 0.5 cm ??Tumor focality ??single focus of invasive carcinoma ??Macroscopic and Microscopic extent of tumor: ?Skin ??invasive carcinoma does not invade into the dermis or epidermis ?Nipple ??not applicable ?Skeletal muscle ??no skeletal muscle present ??Ductal carcinoma in situ (DCIS) ??ductal carcinoma in situ is present ???Extensive intraductal component (EIC) ??negative ?The ductal carcinoma is present adjacent to invasive carcinoma and comprise about 10% of the total tumor volume. ?Number of blocks with DCIS - 3 ?Number of blocks examined - 12 ??Architectural pattern ??cribriform ?Nuclear grade ??grade 1 (low) ?Necrosis ??single cell necrosis. ??Lobular carcinoma in situ (LCIS) ??not identified ??Histologic type of invasive carcinoma ??invasive ductal carcinoma (no special type) ??Histologic Grade: [place] grade: ?Glandular/tubular differentiation - score 1 ?Nuclear pleomorphism - score 2 ?Mitotic count ??score 1 ?Overall grade - 1 (score of 4) ??Margins: ?Margins uninvolved by invasive carcinoma. ?The tumor is <0.1 cm away from the closest posterior margin. ?Margins uninvolved by DCIS. ?The tumor is 0.4 cm away from the closest posterior margin. ? ??Treatment effect: ?Response to presurgical neoadjuvant therapy - no known presurgical therapy. ??Lymph-Vascular invasion ??not identified ??Dermal lymph-vascular invasion ??not present ??Lymph nodes: ?No nodes submitted or found. ??Distance metastasis ??not applicable ??Additional pathologic findings ??intraductal hyperplasia without atypia. ?- Changes consistent with previous biopsy site. ?- Focal atypical lobular hyperplasia. ?See comment.?Ancillary studies - ?[id number]. ?ER ??positive (>95%, moderate) ?CT - positive (>95%, moderate) ?Her2 maegan ??negative (0) ?Her2 by dual TEN ??not performed. ??Microcalcifications ??present in both tumor and non-neoplastic tissue. ??Clinical history ??Please make reference to previous specimen ([id number]) left breast, stereotactic needle core biopsy with diagnosis of intraductal hyperplasia with atypia and focal atypical lobular hyperplasia. ? ??PATHOLOGIC STAGE: ?pT1b ?pNx ?Mx ? Underwent sentinel lymph node biopsy on 08/26/2017: FROZEN SECTION DIAGNOSIS A. ?Left axillary sentinel lymph node #1, biopsy: ?One out of one lymph node negative for carcinoma. B. ?Left axillary sentinel lymph node #2, biopsy: ?One out of one lymph node negative for carcinoma. C. ?Left axillary sentinel lymph node #3, biopsy: ?One out of one lymph node negative for carcinoma. ? MICROSCOPIC DIAGNOSIS A. ?Left axillary sentinel lymph node #1, biopsy: ?1 out of 1 lymph node negative for carcinoma. B. ?Left axillary sentinel lymph node #2, biopsy: ?1 out of 1 lymph node negative for carcinoma. C. ?Left axillary sentinel lymph node #3, biopsy: ?1 out of 1 lymph node negative for carcinoma. ? COMMENT Immunohistochemistry ([id number]) supports the above diagnosis. Reference is made to the patient?s left breast lumpectomy ([id number]) in which invasive ductal carcinoma was identified. ? Mother had breast cancer at age 50. Patient had BRCA mutation testing--negative. ? Patient perimenopausal. ? ? Oncotype Dx:Recurrence score was 8 suggesting an average recurrence rate of 6% over the next 10 years. ? ? RADIATION:10/14/17 to 11/11/17 ? Current therapy:tamoxifen ? No complaints. Was off of tamoxifen March 18-. She held it for hernia surgery-surgery was cancelled and then re-scheduled. Started it after her surgery. Will be seeing ENDO for hyperthyroid next month. ? Appetite:good Energy level:Good-I'm back to work 40 hours. Denies fevers or recent illness. Resp:denies cough or sob Cardiac:denies chest pain/palpitations GI:denies abd pain, n/v, moving bowels regularly :denies dysuira/hematuria Extrem:denies pain to back/bones/joints Endo:denies hot flashes but I do get hot at night Neuro:denies symptoms of neuropathy Skin:denies rashes/lesions Heme:denies bleeding November 2017-prior to this early May ? The ROS is otherwise negative. Past medical history, appointments, medications, allergies reviewed. No changes. EXAM: BP 115/76 Pulse 82 Temp 36.8 ?C (98.3 ?F) (Oral) Wt 60.1 kg (132 lb 8 oz) BMI 23.85 kg/m? APPEARANCE Well appearing, alert, in no acute distress, well-hydrated, well nourished. HEART RRR with normal S1 and S2, no murmurs LUNG clear to auscultation BREAST FEMALE no mass/nodule b/l, L radiation changes LYMPH NODES No cervical lymphadenopathy, No supraclavicular lymphadenopathy and No axillary lymphadenopathy. ABDOMEN bowel sounds normoactive, no bruits, soft, non-tender, non-distended, without organomegaly or palpable masses EXTREMITIES No edema NEURO Awake, alert and oriented x 3, Normal gait and No involuntary motions. SKIN Skin color, texture, turgor normal, no suspicious rashes or lesions RADIOLOGY: Mammogram: Done at [facility]. Will have scanned into [facility]. Dx mammogram 06/15/18: IMPRESSION: KNOWN BIOPSY PROVEN MALIGNANCY The 1 cm x 0.5 cm x 1 cm oval cyst in the right breast is consistent with a simple cyst and is benign. ASSESSMENT/PLAN: 1. Malignant neoplasm of upper-outer quadrant of left breast in female, estrogen receptor positive (HCC) - ICD9: 174.4, V86.0, ICD10: C50.412, Z17.0 pT1b (6 mm; grade 1; no ALI) pN0(sln) MX ER/CT positive, HER- 2 negative invasive ductal carcinoma of the left breast. ? Per Dr. Colmenares's previous note: -I had a detailed discussion with patient regarding the adjuvant treatment modalities of breast cancer. I first discussed the rationale for EBRT given the fact that she had a lumpectomy. -I spent the bulk of time discussing the decision for adjuvant chemotherapy based on traditional clinical and ?pathologic variables and further explained molecular testing and its role in aiding the decision regarding adjuvant chemotherapy. I recommended an Oncotype DX test and discussed with her how this test is performed and how the results would be used in determining the potential benefit of adjuvant chemotherapy. -We also discussed hormonal therapy. I explained that tamoxifen would be recommended based on her perimenopausal status. The goal would be to complete one to 2 years of tamoxifen and then rotated to an aromatase inhibitor with the aim is completing 5-10 years worth of therapy. Plan: -Obtain Oncotype testing. -Radiation referral. She would like to get all of her appointments in before the end of the year possible. She is aware that radiation may not start until after the first of the year if she needs chemotherapy. -Office visit in 2 weeks to review. ? ? ? - ?No concerning findings on exam. - Tamoxifen-tolerating well. Continue. - Reviewed SCP with pt. Copies given. - Mammogram due in April 2019. - ?Follow up in 3 months. - ?Pt. aware to call office with any questions/concerns. ? The patient indicates understanding of these issues and agrees with the plan. Mariana Garcia APRN.CNP CNOVSP Observed: 06/23/2018 Status: COMPLETED Source: [place] 2:00 PM [facility] REPOSITORY Visit (SP) Office ([place]) KEVIN MELÉNDEZTHIKodi Moreno ([id number]) 1970 F Date Time Provider Department 06/23/18 2:00 PM MARIANA GARCIA ([place]) [place] During your visit today, we recorded the following information about you: Temperature Pulse Blood pressure Weight 98.3 degrees 82/minute 115/76 60.1 kg Mariana Garcia APRN.CNP 06/23/2018 3:23 PM Signed Chief Complaint Patient presents with: Established Patient HPI: Lorena Tiffanie Chelsy is a 47 year old female who presents here today for follow up breast cancer. Per Dr. Colmenares's previous note: H/o abnormality in left breast on a screening mammogram done in April 2017. ? Biopsy 06/03/2017: MICROSCOPIC DIAGNOSIS Left breast, stereotactic needle core biopsy: ?Intraductal hyperplasia with atypia. ?Focal atypical lobular hyperplasia. See comment. ?Frequent microcalcifications. ? Underwent needle localization with excisional biopsy on 07/14/2017: MICROSCOPIC DIAGNOSIS Left breast, needle localization biopsy: ?Invasive ductal carcinoma. ?Ductal carcinoma in situ. ?Atypical lobular hyperplasia. ?See cancer summary below. ? INVASIVE BREAST CANCER SUMMARY: ??Specimen ??partial breast ??Procedure ??excision with wire-guided localization ??Lymph node sampling ??no lymph node present ??Specimen integrity ??single intact specimen ??Specimen size ??4 x 3.5 x 2 cm ??Specimen laterality - left ??Tumor site ??not specified ??Tumor size ??0.6 x 0.6 x 0.5 cm ??Tumor focality ??single focus of invasive carcinoma ??Macroscopic and Microscopic extent of tumor: ?Skin ??invasive carcinoma does not invade into the dermis or epidermis ?Nipple ??not applicable ?Skeletal muscle ??no skeletal muscle present ??Ductal carcinoma in situ (DCIS) ??ductal carcinoma in situ is present ???Extensive intraductal component (EIC) ??negative ?The ductal carcinoma is present adjacent to invasive carcinoma and comprise about 10% of the total tumor volume. ?Number of blocks with DCIS - 3 ?Number of blocks examined - 12 ??Architectural pattern ??cribriform ?Nuclear grade ??grade 1 (low) ?Necrosis ??single cell necrosis. ??Lobular carcinoma in situ (LCIS) ??not identified ??Histologic type of invasive carcinoma ??invasive ductal carcinoma (no special type) ??Histologic Grade: [place] grade: ?Glandular/tubular differentiation - score 1 ?Nuclear pleomorphism - score 2 ?Mitotic count ??score 1 ?Overall grade - 1 (score of 4) ??Margins: ?Margins uninvolved by invasive carcinoma. ?The tumor is <0.1 cm away from the closest posterior margin. ?Margins uninvolved by DCIS. ?The tumor is 0.4 cm away from the closest posterior margin. ? ??Treatment effect: ?Response to presurgical neoadjuvant therapy - no known presurgical therapy. ??Lymph-Vascular invasion ??not identified ??Dermal lymph-vascular invasion ??not present ??Lymph nodes: ?No nodes submitted or found. ??Distance metastasis ??not applicable ??Additional pathologic findings ??intraductal hyperplasia without atypia. ?- Changes consistent with previous biopsy site. ?- Focal atypical lobular hyperplasia. ?See comment.?Ancillary studies - ?[id number]. ?ER ??positive (>95%, moderate) ?CT - positive (>95%, moderate) ?Her2 maegan ??negative (0) ?Her2 by dual TEN ??not performed. ??Microcalcifications ??present in both tumor and non-neoplastic tissue. ??Clinical history ??Please make reference to previous specimen ([id number]) left breast, stereotactic needle core biopsy with diagnosis of intraductal hyperplasia with atypia and focal atypical lobular hyperplasia. ? ??PATHOLOGIC STAGE: ?pT1b ?pNx ?Mx ? Underwent sentinel lymph node biopsy on 08/26/2017: FROZEN SECTION DIAGNOSIS A. ?Left axillary sentinel lymph node #1, biopsy: ?One out of one lymph node negative for carcinoma. B. ?Left axillary sentinel lymph node #2, biopsy: ?One out of one lymph node negative for carcinoma. C. ?Left axillary sentinel lymph node #3, biopsy: ?One out of one lymph node negative for carcinoma. ? MICROSCOPIC DIAGNOSIS A. ?Left axillary sentinel lymph node #1, biopsy: ?1 out of 1 lymph node negative for carcinoma. B. ?Left axillary sentinel lymph node #2, biopsy: ?1 out of 1 lymph node negative for carcinoma. C. ?Left axillary sentinel lymph node #3, biopsy: ?1 out of 1 lymph node negative for carcinoma. ? COMMENT Immunohistochemistry ([id number]) supports the above diagnosis. Reference is made to the patient?s left breast lumpectomy ([id number]) in which invasive ductal carcinoma was identified. ? Mother had breast cancer at age 50. Patient had BRCA mutation testing--negative. ? Patient perimenopausal. ? ? Oncotype Dx:Recurrence score was 8 suggesting an average recurrence rate of 6% over the next 10 years. ? ? RADIATION:10/14/17 to 11/11/17 ? Current therapy:tamoxifen ? No complaints. Was off of tamoxifen March 18-. She held it for hernia surgery-surgery was cancelled and then re-scheduled. Started it after her surgery. Will be seeing ENDO for hyperthyroid next month. ? Appetite:good Energy level:Good-I'm back to work 40 hours. Denies fevers or recent illness. Resp:denies cough or sob Cardiac:denies chest pain/palpitations GI:denies abd pain, n/v, moving bowels regularly :denies dysuira/hematuria Extrem:denies pain to back/bones/joints Endo:denies hot flashes but I do get hot at night Neuro:denies symptoms of neuropathy Skin:denies rashes/lesions Heme:denies bleeding LMP November 2017-prior to this early May ? The ROS is otherwise negative. Past medical history, appointments, medications, allergies reviewed. No changes. EXAM: BP 115/76 Pulse 82 Temp 36.8 ?C (98.3 ?F) (Oral) Wt 60.1 kg (132 lb 8 oz) BMI 23.85 kg/m? APPEARANCE Well appearing, alert, in no acute distress, well- hydrated, well nourished. HEART RRR with normal S1 and S2, no murmurs LUNG clear to auscultation BREAST FEMALE no mass/nodule b/l, L radiation changes LYMPH NODES No cervical lymphadenopathy, No supraclavicular lymphadenopathy and No axillary lymphadenopathy. ABDOMEN bowel sounds normoactive, no bruits, soft, non-tender, non-distended, without organomegaly or palpable masses EXTREMITIES No edema NEURO Awake, alert and oriented x 3, Normal gait and No involuntary motions. SKIN Skin color, texture, turgor normal, no suspicious rashes or lesions RADIOLOGY: Mammogram: Done at [facility]. Will have scanned into [facility]. Dx mammogram 06/15/18: IMPRESSION: KNOWN BIOPSY PROVEN MALIGNANCY The 1 cm x 0.5 cm x 1 cm oval cyst in the right breast is consistent with a simple cyst and is benign. ASSESSMENT/PLAN: 1. Malignant neoplasm of upper-outer quadrant of left breast in female, estrogen receptor positive (HCC) - ICD9: 174.4, V86.0, ICD10: C50.412, Z17.0 pT1b (6 mm; grade 1; no ALI) pN0(sln) MX ER/CT positive, HER- 2 negative invasive ductal carcinoma of the left breast. ? Per Dr. Colmenares's previous note: -I had a detailed discussion with patient regarding the adjuvant treatment modalities of breast cancer. I first discussed the rationale for EBRT given the fact that she had a lumpectomy. -I spent the bulk of time discussing the decision for adjuvant chemotherapy based on traditional clinical and ?pathologic variables and further explained molecular testing and its role in aiding the decision regarding adjuvant chemotherapy. I recommended an Oncotype DX test and discussed with her how this test is performed and how the results would be used in determining the potential benefit of adjuvant chemotherapy. -We also discussed hormonal therapy. I explained that tamoxifen would be recommended based on her perimenopausal status. The goal would be to complete one to 2 years of tamoxifen and then rotated to an aromatase inhibitor with the aim is completing 5-10 years worth of therapy. Plan: -Obtain Oncotype testing. -Radiation referral. She would like to get all of her appointments in before the end of the year possible. She is aware that radiation may not start until after the first of the year if she needs chemotherapy. -Office visit in 2 weeks to review. ? ? ? - ?No concerning findings on exam. - Tamoxifen-tolerating well. Continue. - Reviewed SCP with pt. Copies given. - Mammogram due in April 2019. - ?Follow up in 3 months. - ?Pt. aware to call office with any questions/concerns. ? The patient indicates understanding of these issues and agrees with the plan. Mariana Garcia APRN.CHINA Arceo LPN 06/23/2018 2:23 PM Signed Est patient. Three month office visit. Being worked up for thyroid issues. Shelley Arceo LPN Referring Provider: CARLTON COLMENARES [[id number]] Allergies As of Date: 06/23/2018 (No Known Allergies) Date Reviewed: 06/23/2018 Reviewed by: Raoul (Rn) FELECIA Maurice - Fully Assessed Reason for Visit: Established Patient [175] Primary Visit Diagnosis:Malignant neoplasm of upper-outer quadrant of left breast in female, estrogen receptor positive (HCC) [C50.412, Z17.0] Follow-up and Disposition History Recorded Prescriptions as of 06/23/2018 Sig: TAMOXIFEN 20 MG TABLET Take 1 tablet by mouth once d* MULTIVITAMIN TABLET Take 1 tablet by mouth once d* Problem List As Of Date 06/23/2018 Noted Resolved History of melanoma [Z85.820] INVALID FOR* More... Malignant neoplasm of upper-outer quadrant of l*INVALID FOR* Visit Notes: >> Shelley Arceo LPN Brenda Jun 23, 2018 2:10 PM Status: Signed Est patient. Three month office visit. Being worked up for thyroid issues. Shelley Arceo LPN Encounter Status:Closed by MARIANA GARCIA CNP on 06/23/18 PROGRESS Observed: 06/15/2018 Status: COMPLETED Source: [place] 2:30 PM [facility] REPOSITORY HNO ID: [id number] Author: Dawna Bean Rdms Service: (none) Author Type: (none) Type: Progress Notes Filed: 06/15/2018 2:30 PM Note Text: Radiology Service Progress Note PATIENT NAME: Lorena Meléndez DATE OF SERVICE: June 15, 2018 TIME: 2:30 PM PATIENT IDENTITY VERIFICATION COMPLETED USING TWO (2) METHODS: Patient confirmed name verbally and Date of . PATIENT GENDER DATA: Female. status: : No status: NO. PATIENT RELEVANT IMPLANT DATA REVIEWED: Not Applicable RADIOLOGY DEPARTMENT: Ultrasound PERIPHERAL IV DATA: Not applicable SIGNED BY: Dawna Bean Rdms June 15, 2018 2:30 PM CNCO Observed: 06/15/2018 Status: COMPLETED Source: [place] 2:24 PM [facility] REPOSITORY HNO ID: [id number] Author: Mammography Coordinator Service: (none) Author Type: Physician Type: Letter Filed: 06/16/2018 11:32 PM Note Text: June 15, 2018 PID: [id number] Lorena Meléndez [address] [place] [address] Dear Ms. Meléndez, The results of your recent breast imaging examination on 06/15/2018 appear to be consistent with previous studies. Please contact your health care provider to discuss the results. Your breast images and report will be kept on file here as part of your permanent medical record and are available for your continuing care. Thank you for allowing us to help in meeting your health care needs. Sincerely, Dr. Oneill Interpreting Radiologist [facility] (Assessment 6) [facility] US BREAST [facility]TD Observed: 06/15/2018 Status: F Source: [place] RT 2:19 PM [facility] REPOSITORY * * *Final Report* * * DATE OF EXAM: Jun 15 2018 2:19PM WRU [id number] - [facility] US BREAST LTD RT / PROCEDURE REASON: multiple diagnoses * * * * Physician Interpretation * * * * #[id number] - [facility] US BREAST LTD RT ULTRASOUND OF RIGHT BREAST: 06/15/2018 HISTORY: Multiple Diagnoses. RESULT: No prior exams were available for comparison. Real-time ultrasound of the right breast was performed. There is a benign 1 cm x 0.5 cm x 1 cm oval cyst with a smooth internal wall in the right breast at 11 o'clock in the retroareolar region. This oval cyst is anechoic with a well-defined boundary. This correlates with mammography findings. Color flow imaging demonstrates that there is no vascularity present. IMPRESSION: KNOWN BIOPSY PROVEN MALIGNANCY The 1 cm x 0.5 cm x 1 cm oval cyst in the right breast is consistent with a simple cyst and is benign. Cha keene/bandar:06/15/2018 14:24:47 Reproduction Technician: Dawna Bean [facility] [place] letter sent: Category 6 Ultrasound BI-RADS: 6 Known biopsy proven malignancy Multiple national specialty organizations have released breast cancer screening guidelines for women at average risk for developing breast cancer - guidelines that are based on both evidence and opinion, yet differ on when to start and how often to screen for breast cancer. With representation from Breast Imaging, Internal Medicine, Women's Health, Family Medicine, and Medical/Surgical Oncology, the [facility] has carefully reviewed the data and reached the following consensus: 1) All women should engage in shared decision-making with their providers to decide when to start and how often to screen; 2) All women should have the opportunity to start screening mammography at age 40; 3) For women ages 45-55, we recommend annual screening mammograms; 4) For women ages 55 and over, we support both the transition from an annual to a biennial interval if this aligns more with patient's values and preferences, or continuation with annual screening; 5) All women should discuss with their providers when to stop screening mammograms. Cell Stripper: Bandar Transcribe Date/Time: Jun 15 2018 2:08P Dictated by : CHA ONEILL MD This examination was interpreted and the report reviewed and electronically signed by: CHA ONEILL MD on Jun 15 2018 2:24PM EST [id number] SURGERY VISIT REPORT Observed: 06/10/2018 Status: F Source: [place] 9:38 AM [facility] [address] [place] [address]. [address] [place] [address] OFFICE VISIT Date of Service: 06/02/18 MR#: [id number] Acct: [id number] Name: LORENA MELÉNDEZ Rep #: [id number] : 1970 Provider: Herrera Cho MD Age/Sex: 47/F Location: [facility] Status: Signed Intake Intake Visit Reasons: Thyroid Bx Results 05/23 Chief Complaint: 4 week post [facility] Grommet Worker Required: No Is patient in pain?: No Allergies adhesive tape Allergy (Verified 06/02/18 14:44) Rash Medications Tamoxifen Citrate 20 mg PO DAILY 04/29/18 [History Confirmed 06/02/18] Subjective Details: Patient is status post an ultrasound-guided fine-needle aspiration of both a left and right thyroid nodule completed on 05/23/2018. Both of these came back consistent with a colloid nodule. They were adequate for evaluation. She has not noticed any change in her voice. Objective Details: Neck is supple. There is no bruising identified. There is no hard nodules palpated. There is no lymphadenopathy. Assessment AND Plan Problems 1. Multinodular goiter (nontoxic) E04.2 Plan Patient is to get yearly thyroid ultrasounds. If the nodules grow by more than 20% or she develops new nodules that are larger than a centimeter repeat needle aspirations will need to be performed. She can follow-up with me on an as-needed basis. Coding Level of Care Code Off vis,est,level 2 Diagnoses Multinodular goiter (nontoxic) E04.2 06/10/18 0938 <Electronically signed by Herrera Cho MD> Date Herrera Cho MD Cosigner Signature: Date (if applicable) CC: Lauren Luna SURGERY VISIT REPORT Observed: 06/09/2018 Status: F Source: [place] 1:02 PM [facility] REPOSITORY [facility] [address] [place] [address]. [address] [place] [address] OFFICE VISIT Date of Service: 06/09/18 MR#: [id number] Acct: [id number] Name: LORENA MELÉNDEZ Rep #: [id number] : 1970 Provider: Terri Roman MD Age/Sex: 47/F Location: [facility] Status: Signed Intake Intake Visit Reasons: Hernia Surgery 04/29 Chief Complaint: 4 week post [facility] Allergies adhesive tape Allergy (Verified 06/02/18 14:44) Rash Medications Tamoxifen Citrate 20 mg PO DAILY 04/29/18 [History Confirmed 06/02/18] Subjective Details: 47-year-old female following up status post open ventral hernia and right inguinal hernia back on 04/29/18. Patient has returned to work and had not been lifting greater than 40 pounds been doing well. She states her right groin discomfort has resolved. She did notice a little bit of discomfort at her ventral hernia site when she was leaning against a table at that spot otherwise denies any pain. Patient is ready to return to work without restrictions. Objective Details: Ventral hernia site incision clean dry and intact no signs of erythema, right inguinal incision clean dry and intact no signs of erythema Assessment AND Plan Problems 1. S/P repair of ventral hernia Z98.890; Z87.19 2. S/P right inguinal hernia repair, follow-up exam Z09 Plan Patient is doing well, incisions are healing well. Okay to return to work without restrictions. Patient is agreeable to plan. Terri Roman M.D. Pager: [phone] [facility] [address] [place] [address], [address] [place] [address] Office: [phone] Plan Detail Follow Up prn Coding Level of Care Code Global Post Op Diagnoses S/P repair of ventral hernia Z98.890; Z87.19 S/P right inguinal hernia repair, follow-up exam Z09 06/09/18 1302 <Electronically signed by Terri Roman MD> Date Terri Roman MD Cosigner Signature: Date (if applicable) CC: Lauren Luna SCREENING MAMM (CAD), Observed: 06/02/2018 Status: F Source: [place] 3:29 PM [facility] REPOSITORY [facility] [address] [place] [address] SCREENING MAMM (CAD), BILAT MR#: [id number] Acct: [id number] Name: LORENA MELÉNDEZ Rep #: [id number] : 1970 F 47 From: Xavi Solano MD PCP: Lauren Luna Status: REG CLI Study: SCREENING MAMM (CAD), BILAT Date of Exam: 06/02/18 Exam# [id number] Ordering Dr: Mariana Garcia STAFF NUCLEAR MEDICINE TECHNOLOGIST-C MAMMOGRAPHY - BILATERAL SCREENING REASON FOR EXAM: Female, 47 years old. Routine annual screening examination. PERTINENT HISTORY: Personal history of breast cancer. Prior left stereotactic breast biopsy on 06/03/2017. Prior left lumpectomy with radiation treatment. Mother with breast cancer. TECHNIQUE: Digital bilateral breast blanca (3D mammographic acquisition) in the CC and MLO projections. 2-D mediolateral oblique (MLO) and craniocaudad (CC) views of both breasts were obtained. CAD: Full Field Digital Mammography with Computer Added Detection was performed. COMPARISON: Comparison is made with prior study dated May 20, 2017 and July 14, 2017. FINDINGS: Breast Composition: The breasts are heterogeneously dense, which may obscure small masses. Since prior study, the patient underwent a lumpectomy with removal of the calcification and spiculated density in the upper outer aspect of the left breast. Architectural distortion is seen most likely secondary to the resection. There is a 8.5 mm x 6.8 mm well-defined nodule in the retroareolar region of the right breast. Correlation with ultrasound is recommended. No other significant abnormalities are identified. BI/SCREENING MAMM (CAD), BILAT IMPRESSION: Status post left lumpectomy with resultant postsurgical deformity. New nodular density in the retroareolar region of the right breast as described. Correlation with ultrasound is recommended. ASSESSMENT CATEGORY: BIRADS Category 0: Incomplete. Need additional imaging evaluation. A letter regarding these results will be sent to the patient by the facility within 30 days. Approximately 10% of breast cancers are not detected by mammography. A normal mammogram should not delay biopsy of a clinically suspicious abnormality. [id number] Electronically Signed: Xavi Solano MD at 8:08 EDT Tel [phone], Service support , CC: Lauren Luna; EVELIN Garcia Cell Stripper: Signed MAMM OUTSIDE DICOM Observed: 06/02/2018 Status: F Source: [facility] -[facility] 12:00 AM [facility] [place] REPOSITORY Images were obtained outside of [facility] [id number] SURGERY VISIT REPORT Observed: 05/25/2018 Status: F Source: [place] 9:04 AM [facility] REPOSITORY [facility] [address] [place] [address] [address] [place] [address] OFFICE VISIT Date of Service: 05/25/18 MR#: [id number] Acct: [id number] Name: LORENA MELÉNDEZ Rep #: [id number] : 1970 Provider: Terri Roman MD Age/Sex: 47/F Location: [facility] Status: Signed Intake Intake Visit Reasons: Hernia Surgery 04/29 Chief Complaint: 4 week post [facility] Grommet Worker Required: No Is patient in pain?: No Allergies adhesive tape Allergy (Verified 05/23/18 07:57) Rash Medications Tamoxifen Citrate 20 mg PO DAILY 04/29/18 [History Confirmed 05/23/18] Is last menstrual period known: No Post menopausal: Yes Patient : No Subjective Details: Patient follow-up for status post ventral hernia and right inguinal hernia repair approximately 4 weeks ago. Patient states she has been doing well and her groin pain is much improved from 2 weeks ago and it will be may be a 2/10 at times but she has been able to lift up to the 20 pounds without any issues. Patient is ready to return to work. Patient also states that the swelling of the right groin as well as above the umbilicus has improved and she still has some numbness in the right groin. Objective Details: GI: Soft, nondistended, nontender, no peritoneal signs, incision healing well; right groin: Incision healing well, improved swelling, still has some numbness along her crease to her thighs/below the incision. Assessment AND Plan Problems 1. S/P right inguinal hernia repair, follow-up exam Z09 2. S/P repair of ventral hernia Z98.890; Z87.19 Plan Patient states the right groin pain is improving every day and is fairly minimal. Patient is ready to return to work next week starting on Wednesday for half day and then full days after. Patient still has lifting restrictions of no greater than 40 pounds for 2 weeks and patient will follow-up in approximately 2 weeks. Patient had no further questions or concerns this time. Terri Roman M.D. Pager: [phone] [facility] [address] [place] [address], [address] [place] [address] Office: [phone] Plan Detail Follow Up 2 Weeks Coding Level of Care Code Global Post Op Diagnoses S/P right inguinal hernia repair, follow-up exam Z09 S/P repair of ventral hernia Z98.890; Z87.19 05/25/18 0904 <Electronically signed by Terri Roman MD> Date Terri Roman MD Cosigner Signature: Date (if applicable) CC: Lauren Luna SURGERY VISIT REPORT Observed: 05/23/2018 Status: F Source: [place] 9:17 AM [facility] REPOSITORY [facility] [address] [place] [address] OFFICE VISIT Date of Service: 05/23/18 MR#: [id number] Acct: [id number] Name: LORENA MELÉNDEZ Rep #: [id number] : 1970 Provider: Herrera Cho MD Age/Sex: 47/F Location: [facility] Status: Signed Intake Intake Visit Reasons: Bilat FNA Thyroid Grommet Worker Required: No Is patient in pain?: No Allergies adhesive tape Allergy (Verified 05/23/18 07:57) Rash Medications Tamoxifen Citrate 20 mg PO DAILY 04/29/18 [History Confirmed 05/23/18] PFSH Medical History Invasive ductal carcinoma of left breast (Acute) H. pylori infection (Acute) Pancreatic cyst (Acute) Right inguinal hernia (Acute) Ulcer (Acute) Ventral hernia (Acute) Surgical History Atypical ductal hyperplasia of breast (Acute) H/O tubal ligation (Acute) S/P lumpectomy, left breast (Acute) Family History Mother Breast cancer Arthritis Father CAD (coronary artery disease) Cancer Social History Smoking Status: Current every day smoker second hand exposure: Yes alcohol intake: current alcohol intake frequency: holidays/special occasions only substance use type: does not use caffeine: Yes what type of physical activity do you participate in: none frequency: does not exercise seatbelt use: always HPI HPI HPI: LORENA MELÉNDEZ, is a 47 F who presents to the office today for Office Procedures Fine Needle Aspiration Provider Documentation Details: Primitive diagnosis: Multinodular goiter Postoperative diagnosis: The same Procedure: Ultrasound-guided fine-needle aspiration of dominant thyroid nodules 4 (bilaterally) Surgeon: Marquis Procedure: Left side of the thyroid gland was ultrasound there was an inferior to superior pole nodule that were identified. I prepped the skin with alcohol. I injected 1% lidocaine plain. Under ultrasound guidance I took 3 passes with a 22-gauge needle through both of the nodules 3. I plated these on glass slides. Sterile dressings were applied. She tolerated this well. Ultrasound of the right thyroid gland revealed 2 nodules once again an inferior nodule in the superior nodule at the skin with alcohol. I injected 1% lidocaine plain. Under ultrasound guidance took 3 passes in between each nodule 3. I plated these on glass slides. Sterile dressings were applied. The patient tolerated the procedure well. Alert [employer] Flatbed Driver Alert Billing: Yes FNA 35807 Thyroid (Bilateral (modifier 50)) Procedure Time Out Time Out Informed consent given: Yes Consent signed: Yes Time out checklist: patient, procedure, site marked/identified, positioning of patient, supplies available, allergies confirmed, team agrees on procedure Time out staff in room: Yes Time out verified: Yes Time out date: 05/23/18 Time out time: 07:58 Assessment AND Plan Orders Orders: Coding Level of Care Code Attention Mary Additional Codes FNA - Fine Needle Aspiration: 48526 Thyroid (49125) 05/23/18 0917 <Electronically signed by Herrera Cho MD> Date Herrera Cho MD Cosigner Signature: Date (if applicable) CC: ASPIRATION (SLIDES Observed: 05/23/2018 Status: F Source: [place] ONLY) 8:00 AM [facility] REPOSITORY Patient: LORENA MELÉNDEZ : 1970 (47/F) Acct Num: [id number] Phys: Marquis MARSHALL,Herrera Unit Num: [id number] Loc: [facility] Specimen: [id number] Received: 05/23/18 - 1200 Spec Type: ASPIRATION TISSUES TISSUES: A. Thyroid gland, NOS - LEFT THYROID 18 SLIDES B. Thyroid gland, NOS - RIGHT THYROID 18 SLIDES COMMENT Immediate cytologic evaluation to determine adequacy is not applicable. CYTOLOGY GROSS A - Received are 18 smears labeled with the patient's name and designated per the requisition as FNA, left thyroid. Submitted for staining. B - Received are 18 smears labeled with the patient's name and designated per the requisition as FNA, right thyroid. Submitted for staining. /JM:timmy TC:5 CPT: 20675 x2 CYTOLOGY STUDY Slides are reviewed. DIAGNOSIS CYTOLOGY A. Fine needle aspiration, left thyroid nodule (smears): Adequate for evaluation. Benign, consistent with colloid nodule. B. Fine needle aspiration, right thyroid nodule (smears): Adequate for evaluation. Benign, consistent with colloid nodule. AM:rg 05/24/18 HEADER OPERATION: Ultrasound guided fine needle aspiration, bilateral thyroid PRE-OP DIAGNOSIS: Multinodular goiter E04.2 TISSUE SUBMITTED: A - FNA, left thyroid, B - FNA, Right thyroid Signed [facility] 05/24/18 <signature on file> Performed By: #### PASPS #### [facility] [address], [address] SURGERY VISIT REPORT Observed: 05/21/2018 Status: F Source: [place] 8:35 AM [facility] REPOSITORY [facility] [address] [place] [address] OFFICE VISIT Date of Service: 05/16/18 MR#: [id number] Acct: [id number] Name: LORENA MELÉNDEZ Rep #: [id number] : 1970 Provider: Herrera Cho MD Age/Sex: 47/F Location: [facility] Status: Signed Intake Vital Signs05/16/18 Height 5 ft 3 in 05/16/18 Weight: 130 lb Intake Visit Reasons: Thyroid Nodule R Side Allergies adhesive tape Allergy (Verified 05/13/18 09:13) Rash Medications Tamoxifen Citrate 20 mg PO DAILY 04/29/18 [History Confirmed 05/16/18] [facility] Medical History Invasive ductal carcinoma of left breast (Acute) H. pylori infection (Acute) Pancreatic cyst (Acute) Right inguinal hernia (Acute) Ulcer (Acute) Ventral hernia (Acute) Surgical History Atypical ductal hyperplasia of breast (Acute) H/O tubal ligation (Acute) S/P lumpectomy, left breast (Acute) Family History Mother Breast cancer Arthritis Father CAD (coronary artery disease) Cancer Social History Smoking Status: Current every day smoker second hand exposure: Yes alcohol intake: current alcohol intake frequency: holidays/special occasions only substance use type: does not use caffeine: Yes what type of physical activity do you participate in: none frequency: does not exercise seatbelt use: always HPI HPI HPI: LORENA MELÉNDEZ, is a 47 F who presents to the office today for evaluation of multinodular goiter. Patient had a thyroid ultrasound completed on 03/11/2018. This showed multiple nodules on both right and left side. The largest being 2.8 cm on the right side and another nodule which was 1.5 cm on the right side on the left side there was a 1.3 and 1.2 cm nodule in greatest diameter. Patient has been complaining of some night sweats. She has a grandfather on the mother side with cancer of the thyroid gland. She has not had any travel to high radiation city such as [place] or [employer]. She has no previous history of thyroid problems in the past. She has had no change in her voice. ROS General General: Yes weight change and breast cancer; no appetite, fatigue, colon cancer or weakness HEENT HEENT: No difficulty swallowing, eye injury, eye surgery, swollen glands or hoarseness Endo Endocrine: No thyroid disease, diabetes mellitus, thyroid cancer, Hair loss, heat intolerance or cold intolerance Skin Skin: No rash or changing moles Musc Musculoskeletal: No back problems, arthritis, rheumatoid arthritis, gout or joint pain Cardio Cardiovascular: No murmur, pacemaker, heart disease, atrial fibrillation, high blood pressure, heart attack, heart stent, palpitations, shortness of breat with exertion or chest pain Psych Psychiatric: Yes anxiety; no depression or hearing voices Resp Respiratory: No shortness of breath, No sleep apnea, Yes cough, No COPD, No asthma, No emphysema, No wheezing Gastro Gastrointestinal: No abdominal pain, No nausea or vomiting, No diarrhea, No constipation, No blood in stool, No acid reflux, No hemorrhoids, No ulcers, No gallbladder problem, No black,tarry stools Tate Hematologic: No blood thinners, No blood disorders, No bleeding, No anemia, No blood clots Neuro Neurologic: No system reviewed and no additional complaints, except as docu, No as per HPI, No abnormal walking, No abnormal hearing, No abnormal movements, No abnormal speech, No behavioral changes, No burning sensations, No confusion, No seizure-like activity, No unsteadiness, No dizziness, No localized weakness, No frequent falls, No headache(s), No lack of coordination, No loss of vision, No memory loss, No numbness, No other visual disturbances, No radiating pain, No restless legs, No sensory deficit, No fainting, No tingling, No tremor(s), No weakness, No other Exam Const General: well developed, no acute distress, well hydrated Orientation: oriented to person, oriented to place, oriented to time [facility] Head: normocephalic, atraumatic Ears: external ears normal Mouth: moist mucous membranes Other: Thyroid Exam: No hard palpable nodules are identified on either side. There is no adenopathy on the exam of the neck whatsoever. Eyes Sclera: sclerae normal Pupils: normal by confrontation Neck Neck: no lymphadenopathy noted Neck mass: No Thyroid: symmetrical, thyroid normal Chest Chest palpation AND inspection: normal inspection of the chest Resp Effort AND Inspection: normal respiratory effort Auscultation: clear to auscultation bilaterally Percussion: percussion normal Cardio Rate: regular rate Rhythm: regular rhythm Heart Sounds: no murmurs GI Palpation: soft, no masses, no hepatosplenomegaly, nontender Rectal Exam: other Other: Rectal exam deferred. Extrem General: no clubbing, cyanosis or edema, normal to inspection Assessment AND Plan Problems 1. Multinodular goiter (nontoxic) E04.2 Plan Plan is to perform a bilateral fine-needle aspiration thyroid gland. We will be doing multiple passes on each side. Wrist benefits of the procedure have been reviewed in great detail with the patient and the patient agrees to proceed. Coding Level of Care Code Off vis,new,level 3 Diagnoses Multinodular goiter (nontoxic) E04.2 05/21/18 0835 <Electronically signed by Herrera Cho MD> Date Herrera Bonner Signature: Date (if applicable) CC: Lauren Luna SURGERY VISIT REPORT Observed: 05/13/2018 Status: F Source: [place] 9:41 AM [facility] REPOSITORY [facility] 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 pylori infection (Acute) Pancreatic cyst (Acute) Right inguinal hernia (Acute) Ulcer (Acute) Ventral hernia (Acute) Surgical History Atypical ductal hyperplasia of breast (Acute) H/O tubal ligation (Acute) S/P lumpectomy, left breast (Acute) Family History Mother Breast cancer Arthritis Father CAD (coronary artery disease) Cancer Social History Smoking Status: Current every day smoker second hand exposure: Yes alcohol intake: current alcohol intake frequency: holidays/special occasions only substance use type: does not use caffeine: Yes what type of physical activity do you participate in: none frequency: does not exercise seatbelt use: always HPI HPI HPI: LORENA MELÉNDEZ, is a 47 F who presents to the office today for follow-up from her right inguinal hernia repair with mesh and repair of ventral hernia with mesh on 05/26/2018. Patient states she has had some stinging/burning pain at her right groin site however last Wednesday did lighten up and improve. She does complain of some numbness below the right inguinal incision and some soreness at the ventral hernia site. Otherwise patient is eating well and having bowel movements. Patient does work physical job and she is currently planning to return to work in 4 weeks. Exam Const General: cooperative, comfortable, no acute distress GI Inspection: non-distended Palpation: soft, tender (An incision above the umbilicus healing well), no guarding Other: Right inguinal incision clean dry and intact healing well mild swelling above the incision compared to the other side, and some numbness below the incision. Assessment AND Plan Problems 1. S/P right inguinal hernia repair, follow-up exam Z09 2. S/P repair of ventral hernia Z98.890; Z87.19 Plan Patient's incisions are healing well. Patient's prickly sensation at her right groin has improved expected to continue to improve. Discussed patient still no lifting greater than 20 pounds. At the four-week robin will allow her to lift up to 40 pounds however I do encourage her to lift up to that weight and advance slowly to see how she does. Currently she is planning to go back to work in 4 weeks I will see her in about 2 weeks and see how she is doing at that time if the plan is still the same. Patient no further questions this time. Terri Roman M.D. Pager: [phone] [facility] [address] [place] [address], [facility], [address] [place] [address] Office: [phone] Plan Detail Follow Up 2 Weeks Coding Level of Care Code Global Post Op Diagnoses S/P right inguinal hernia repair, follow-up exam Z09 S/P repair of ventral hernia Z98.890; Z87.19 05/13/18 0941 <Electronically signed by Terri Roman MD> Date Terri Roman MD Cosigner Signature: Date (if applicable) CC: Lauren Luna 12 LEAD ELECTROCARDIOGRAM Observed: 05/04/2018 Status: F Source: [place] 11:23 AM [facility] REPOSITORY [facility] [address] [place] [address] 12 Lead EKG 04/29/18 0843 MR#: [id number] Acct: [id number] Name: LORENA MELÉNDEZ Rep #: [id number] : 1970 47 From: Carlton Sánchez MD Attending Dr: Terri Roman MD Status: [facility] Ordering Dr: Terri Roman MD Date: 04/29/18 Location: [facility] [place] Sex: F C Admitted: Test Reason : PRE OP Blood Pressure : / mmHG Vent. Rate : 080 BPM Atrial Rate : 080 BPM P-R Int : 138 ms QRS Dur : 086 ms QT Int : 376 ms P-R-T Axes : 053 045 053 degrees QTc Int : 433 ms Normal sinus rhythm Low voltage QRS (limb leads) Confirmed by PRINCESS MARSHALL, CARLTON ([id number]), assistant film editor LEE LEDESMA ([id number]) on 05/04/2018 11:23:07 AM Referred By: Terri Roman Confirmed By:CARLTON SÁNCHEZ MD 05/04/18 1123 Date Carlton Sánchez MD CC: Lauren Luna; Terri Roman MD Signed OPERATIVE REPORT Observed: 04/29/2018 Status: F Source: [place] 7:22 PM [facility] REPOSITORY [facility] Medical Records Department [address] [place] [address] Operative Report 04/29/18 1137 MR#: [id number] Acct: [id number] Name: LORENA MELÉNDEZ Rep #: [id number] : 1970 47 From: Terri Roman MD PCP: Lauren Luna Status: [facility] Y Location: [facility] [place] [facility] Report of Operation Date of Procedure: 04/29/18 Pre-Operative Diagnosis: Ventral hernia 2, right inguinal hernia Post-Operative Diagnosis: Same Surgery/Procedure Performed:: Repair of right inguinal hernia with mesh, repair of ventral hernias with mesh corporate receptionist: Arltete Farias Type of Anesthesia:: General/Supplemental Anesthesiologist: Watson Hannah Special Medications: Ancef 2 g IV 1 Specimen's removed: Right inguinal hernia sac Estimated Blood Loss (mL): <10 cc Fluids Replaced: 700 cc Description of Procedure: Indications: This is a 47-year-old female who developed ventral hernias and a right inguinal hernia. Ventral hernia repair with mesh and inguinal hernia repair with mesh was elected. Description procedure: The patient was taken to the operating room. A timeout was completed verifying correct patient, procedure, site, positioning, and special equipment prior to beginning procedure. General anesthesia was induced. The abdomen and bilateral groins were prepped and draped in usual sterile fashion. An incision was marked in the natural skin crease and planned in the near the pubic tubercle. A field block was produced by raising skin wheals along the proposed incision in a skin wound was raised about 1 cm medial to the anterior superior iliac spine using 0.25% Marcaine for a total of 16 mL used throughout the procedure. Skin incision was made with the knife and deepened through the Cornelius and Camper's fascia with electrocautery until the aponeurosis of the external oblique was a identified. This was cleaned and the external ring exposed. Hemostasis was achieved in the wound. An incision was made in the midpoint of the external oblique aponeurosis in the direction of its fibers. The ilioinguinal nerve was identified and protected throughout the dissection. Flaps of the external oblique were developed cephalad and inferiorly. The round ligament was identified. It was gently dissected free at the pubic tubercle and encircled with umbilical tape. Attention was directed to the anterior medial aspect of the cord where an indirect hernia sac was identified. The sac was carefully dissected free from the cord down to the level of the internal ring; however, there were tight adhesions between the distal sac and the round ligament, ilioinguinal nerve. The sac was opened and contents reduced. A finger was passed into the peritoneal cavity and the floor of the inguinal canal was assessed and found to be adequate. The femoral canal was palpated and no hernia identified. The sac was twisted and suture ligated with a 2-0 silk. Redundant sac was excised and submitted to pathology. The stump of the sac was checked for hemostasis and allowed to retract into the abdomen. The ilioinguinal nerve was ligated. Attention then turned to the floor of the canal which appeared to be weakened without a well-defined defect or sac. A Bard keyhole mesh was cut to the appropriate size after suturing the hole with 2-0 silk [id number] suture. Beginning at the pubic tubercle, the mesh was sutured to the inguinal ligament inferiorly and the conjoined tendon superiorly using 2 continuous running sutures of 2-0 PDS sutures. Care was taken to assure the mesh was placed in the last fashion to avoid excess tension and no neurovascular structures were caught in the repair. Hemostasis was again checked. The vocal tape was removed. Area was irrigated with saline. External oblique aponeurosis was closed running suture of 3-0 Vicryl, taking care not to catch the ilioinguinal nerve in the suture line. Cornelius's fascia was closed with interrupted sutures of 3-0 Vicryl. Next attention was turned to the supraumbilical ventral hernias which were located with bedside ultrasound. Vertical midline supra umbilical incision was made with 10 blade scalpel. This was deepened to the fascia with hemostats and electrocautery. The larger of the 2 hernias was identified and the fascia was cleared around the hernia fat was allowed to reduce the defect was about 1.2 cm x 0.8 cm. About a centimeter inferior to this defect there is also a smaller defect that was only about 0.5 x 0.5 mm which again the fascia was cleared on the hernia and the fat was reduced. A figure of 8 1-0 Nurolon suture was used to close the smaller of the 2 ventral hernias. The ventral[address] small [place] with strap hernia patch was used in the larger hernia and sutured the straps with 1-0 Nurolon and the defect was also closed with [id number]-md-ottrs 1-0 Nurolon. Wound was irrigated and hemostasis was assured. Interrupted subcutaneous sutures of 3-0 Vicryl were placed. Skin of both incisions were closed with was closed running subcuticular suture of 4-0 Monocryl with Steri- Strips gauze and OpSite. Patient tolerated the procedure well and sent to the postanesthesia care in stable condition. Grafts/Implants Used: BARD Keyhole LOT [id number], VENTRALEX ST Hernia small LOT [id number] - Complications none 04/29/181921 <Electronically signed by Terri Roman MD> Date Terri Roman MD CC: Lauren Luna; Terri Roman MD Signed DISCHARGE INSTRUCTION Observed: 04/29/2018 Status: F Source: [place] 11:48 AM [facility] REPOSITORY [facility] Medical Records Department [address] [place] [address] Instructions for Home/Discharge Instructions 04/29/18 0951 MR#: [id number] Acct: [id number] Name: LORENA MELÉNDEZ Rep #: [id number] : 1970 47 From: Terri Roman MD PCP: Lauren Luna Status: REG [facility] [place] Discharge Diet: Light diet - advance as tolerated Discharge Activity: May not drive while taking narcotic pain medications. May shower in (days): 1 Ice area for (Minutes): 20 Lifting Restrictions: no lifting >20 lbs for 4 weeks Call your doctor if your incision/area has: Continuous Slow Oozing, Sudden Increased Bleeding, Increased Pain/ Swelling, Increased Redness, Foul Smelling Discharge, Swelling at the incision site Call your doctor if you observe: Fever of 101 or Higher Remove Dressing in (days):: 2 Additional Instructions: take colace-stool softener when taking percocet, ok to take ibuprofen 400-600 mg PO Q6h PRN between doses of percocet, no tylenol since it is already in percocet. take all pain meds with food. Allergies/Adverse Reactions: Allergies adhesive tape Allergy (Verified 04/22/18 14:01) Rash Medications to take at Discharge Oxycodone HCl/Acetaminophen [Percocet 5/325] 1 - 2 tablet PO Q6H PRN PRN 4 Days #30 tablet 04/29/18 Tamoxifen Citrate 20 mg PO DAILY 04/29/18 The following prescriptions were given: Oxycodone HCl/Acetaminophen [Percocet 5/325] 1 - 2 tablet PO Q6H PRN PRN 4 Days #30 tablet PRN Reason: Pain Primary Care Physician: Lauren Luna [Primary Care Provider] - Test Results: Test results from this visit will be discussed in further detail at your follow-up appointment, if applicable. Please Follow Up With: Terri Roman MD - call [phone] after 5PM/weekends with any concerns When: call for f/u appt in 2 weeks will discuss return to work at that time. Proposed Discharge Date: 04/29/18 04/29/18 1148 <Electronically signed by Terri Roman MD> Date Terri Roman MD CC: Lauren Luna HERNIA Observed: 04/29/2018 Status: F Source: [place] 10:00 AM [facility] REPOSITORY Patient: LORENA MELÉNDEZ : 1970 (47/F) Acct Num: [id number] Phys: Terri Roman MD Unit Num: [id number] Loc: [facility] [place] Specimen: [id number] Received: 04/29/181246 Spec Type: Hernia TISSUES TISSUES: HERNIA GROSS DESCRIPTION Received in fixative is one container labeled with the patient's name and designated right inguinal hernia sac. The specimen consists of a piece of gonzales soft tissue measuring 2 x 1 x 0.5 cm. The specimen is bisected and submitted entirely in one cassette. / STEPHANIE:adolph 04/29/18 TC:5 CPT: 49766 HEADER OPERATION: Right inguinal hernia repair with mesh, ventral hernia repair PRE-OP DIAGNOSIS: Right inguinal hernia, ventral hernia TISSUE SUBMITTED: Right inguinal hernia sac MICROSCOPIC DESCRIPTION Slides are reviewed. MICROSCOPIC DIAGNOSIS Soft tissue of right inguinal region, excision: Fibrofatty tissue consistent with hernia sac. AM:adolph 05/02/18 Signed Cecilio Zachary 05/02/18 <signature on file> Performed By: #### PHERN #### [facility] [address] [place], [address] CBC-COMPLETE BLOOD CNT Collected: 04/29/2018 Status: F Source: [place] NO DIFF 8:30 AM [facility] REPOSITORY TYPE CODE TESTS RESULT OUT OF RANGE REFERENCE UNITS LAB L100.1000 4.4-11.0 K/mm3 Normal WBC 8.2 LAB L100.1200 4.2-5.4 M/mm3 Normal RBC 4.77 LAB L100.1300 12.0-15.0 g/dl High HGB 15.3 LAB L100.1400 37-47 % Normal HCT 45.9 LAB L100.1500 81-99 fL Normal MCV 96.2 LAB L100.1600 27.0-32.0 pg High MCH 32.1 LAB L100.1700 32-36 g/gl Normal MCHC 33.3 LAB L100.1810 11.6-14.6 % Normal RDW CV 13.7 LAB L100.1820 35.1-43.9 fl High RDW SD 48.8 LAB L100.1900 150-450 K/mm3 Normal PLT 180 LAB L100.2000 6.2-12.0 fl Normal MPV 10.2 Performed By: #### L100.0500, L500.3400 #### [facility] [address] [place], [place], [id number] LIVER PROFILE Collected: 04/29/2018 Status: F Source: [place] 8:30 AM [facility] REPOSITORY TYPE CODE TESTS RESULT OUT OF RANGE REFERENCE UNITS LAB L501.1500 6.4-8.2 g/dL Normal T PROT 6.9 LAB L501.1800 3.2-5.0 g/dL Normal ALB 3.3 LAB L501.1950 2.2-4.2 g/dL Normal GLOB 3.6 LAB L501.4100 15-37 U/L Low AST 11 LAB L501.4305 45-117 U/L Normal ALK P 62 LAB L501.4405 13-56 U/L Normal ALT 13 LAB L501.4600 0.20-1.00 mg/dL Normal T BILI 0.50 LAB L501.4700 0.00-0.30 mg/dL Normal D BILI 0.14 Performed By: #### L100.0500, L500.3400 #### [facility] [address] [facility] [place], [place], [address] PROTHROMBIN TIME W/INR Collected: 04/29/2018 Status: F Source: [place] 8:30 AM [facility] REPOSITORY TYPE CODE TESTS RESULT OUT OF RANGE REFERENCE UNITS LAB L300.4150 11.7-14.9 SECONDS Normal PROTIME 13.7 LAB L300.4200 Normal INR 1.1 Performed By: #### L300.3900, L300.4310 #### [facility] [address] [facility] [place], [place], [address] PARTIAL THROMBOPLAST Collected: 04/29/2018 Status: F Source: [place] TIME 8:30 AM [facility] REPOSITORY TYPE CODE TESTS RESULT OUT OF RANGE REFERENCE UNITS LAB L300.4310 24.1-36.2 Seconds Normal PTT 26.8 Performed By: #### L300.3900, L300.4310 #### [facility] [address] [facility] [address] [facility] [place], [place], [address] CNOVSP Observed: 03/18/2018 Status: COMPLETED Source: [place] 1:00 PM [facility] REPOSITORY Visit (SP) Office (HEMAWS) LORENA MELÉNDEZ ([id number]) 1970 F Date Time Provider Department 03/18/18 1:00 PM MARIANA GARCIA (SEROLOGY TECHNICIAN) SANTOS During your visit today, we recorded the following information about you: Temperature Pulse Blood pressure Weight 98.8 degrees 76/minute 103/70 59.4 kg Shelley Marielos CHAPARRO 03/18/2018 1:01 PM Signed Est patient. Three month office visit. Being worked up for thyroid issues. Shelley Garcia APRN.CNP 03/18/2018 1:23 PM Signed Chief Complaint Patient presents with: Established Patient HPI: Lorena Meléndez is a 47 year old female who presents here today for follow up breast cancer. Per Dr. Colmenares's previous note: H/o abnormality in left breast on a screening mammogram done in April 2017. ? Biopsy 06/03/2017: MICROSCOPIC DIAGNOSIS Left breast, stereotactic needle core biopsy: ?Intraductal hyperplasia with atypia. ?Focal atypical lobular hyperplasia. See comment. ?Frequent microcalcifications. ? Underwent needle localization with excisional biopsy on 07/14/2017: MICROSCOPIC DIAGNOSIS Left breast, needle localization biopsy: ?Invasive ductal carcinoma. ?Ductal carcinoma in situ. ?Atypical lobular hyperplasia. ?See cancer summary below. ? INVASIVE BREAST CANCER SUMMARY: ??Specimen ??partial breast ??Procedure ??excision with wire-guided localization ??Lymph node sampling ??no lymph node present ??Specimen integrity ??single intact specimen ??Specimen size ??4 x 3.5 x 2 cm ??Specimen laterality - left ??Tumor site ??not specified ??Tumor size ??0.6 x 0.6 x 0.5 cm ??Tumor focality ??single focus of invasive carcinoma ??Macroscopic and Microscopic extent of tumor: ?Skin ??invasive carcinoma does not invade into the dermis or epidermis ?Nipple ??not applicable ?Skeletal muscle ??no skeletal muscle present ??Ductal carcinoma in situ (DCIS) ??ductal carcinoma in situ is present ???Extensive intraductal component (EIC) ??negative ?The ductal carcinoma is present adjacent to invasive carcinoma and comprise about 10% of the total tumor volume. ?Number of blocks with DCIS - 3 ?Number of blocks examined - 12 ??Architectural pattern ??cribriform ?Nuclear grade ??grade 1 (low) ?Necrosis ??single cell necrosis. ??Lobular carcinoma in situ (LCIS) ??not identified ??Histologic type of invasive carcinoma ??invasive ductal carcinoma (no special type) ??Histologic Grade: Morales grade: ?Glandular/tubular differentiation - score 1 ?Nuclear pleomorphism - score 2 ?Mitotic count ??score 1 ?Overall grade - 1 (score of 4) ??Margins: ?Margins uninvolved by invasive carcinoma. ?The tumor is <0.1 cm away from the closest posterior margin. ?Margins uninvolved by DCIS. ?The tumor is 0.4 cm away from the closest posterior margin. ? ??Treatment effect: ?Response to presurgical neoadjuvant therapy - no known presurgical therapy. ??Lymph-Vascular invasion ??not identified ??Dermal lymph-vascular invasion ??not present ??Lymph nodes: ?No nodes submitted or found. ??Distance metastasis ??not applicable ??Additional pathologic findings ??intraductal hyperplasia without atypia. ?- Changes consistent with previous biopsy site. ?- Focal atypical lobular hyperplasia. ?See comment.?Ancillary studies - ?[id number]. ?ER ??positive (>95%, moderate) ?CT - positive (>95%, moderate) ?Her2 maegan ??negative (0) ?Her2 by dual TEN ??not performed. ??Microcalcifications ??present in both tumor and non-neoplastic tissue. ??Clinical history ??Please make reference to previous specimen ([id number]) left breast, stereotactic needle core biopsy with diagnosis of intraductal hyperplasia with atypia and focal atypical lobular hyperplasia. ? ??PATHOLOGIC STAGE: ?pT1b ?pNx ?Mx ? Underwent sentinel lymph node biopsy on 08/26/2017: FROZEN SECTION DIAGNOSIS A. ?Left axillary sentinel lymph node #1, biopsy: ?One out of one lymph node negative for carcinoma. B. ?Left axillary sentinel lymph node #2, biopsy: ?One out of one lymph node negative for carcinoma. C. ?Left axillary sentinel lymph node #3, biopsy: ?One out of one lymph node negative for carcinoma. ? MICROSCOPIC DIAGNOSIS A. ?Left axillary sentinel lymph node #1, biopsy: ?1 out of 1 lymph node negative for carcinoma. B. ?Left axillary sentinel lymph node #2, biopsy: ?1 out of 1 lymph node negative for carcinoma. C. ?Left axillary sentinel lymph node #3, biopsy: ?1 out of 1 lymph node negative for carcinoma. ? COMMENT Immunohistochemistry ([id number]) supports the above diagnosis. Reference is made to the patient?s left breast lumpectomy ([id number]) in which invasive ductal carcinoma was identified. ? Mother had breast cancer at age 50. Patient had BRCA mutation testing--negative. ? Patient perimenopausal. ? ? Oncotype Dx:Recurrence score was 8 suggesting an average recurrence rate of 6% over the next 10 years. ? ? RADIATION:10/14/17 to 11/11/17 ? Current therapy:tamoxifen ? I need to have a thyroid biopsy, colonoscopy and hernia surgery. I'm busy. ? Appetite:good Energy level:Exhausting-I'm in a new position at work. Denies fevers or recent illness. Resp:denies cough or sob Cardiac:denies chest pain/palpitations GI:denies abd pain-I will get some pain from my hernias, n/v, moving bowels regularly :denies dysuira/hematuria Extrem:denies pain to back/bones/joints Endo:denies hot flashes Neuro:denies symptoms of neuropathy Skin:denies rashes/lesions Heme:denies bleeding November 2017-prior to this early May ? The ROS is otherwise negative. Past medical history, appointments, medications, allergies reviewed. No changes. EXAM: BP 103/70 Pulse 76 Temp 37.1 ?C (98.8 ?F) (Oral) Wt 59.4 kg (131 lb) BMI 23.58 kg/m? APPEARANCE Well appearing, alert, in no acute distress, well- hydrated, well nourished. HEART RRR with normal S1 and S2, no murmurs LUNG clear to auscultation BREAST FEMALE no mass/nodule b/l, L scar to upper/radiation changes LYMPH NODES No cervical lymphadenopathy, No supraclavicular lymphadenopathy and No axillary lymphadenopathy. ABDOMEN bowel sounds normoactive, no bruits, soft, non-tender, non-distended, without organomegaly or palpable masses EXTREMITIES No edema NEURO Awake, alert and oriented x 3, Normal gait and No involuntary motions. SKIN Skin color, texture, turgor normal, no suspicious rashes or lesions ASSESSMENT/PLAN: 1. Malignant neoplasm of upper-outer quadrant of left breast in female, estrogen receptor positive (HCC) - ICD9: 174.4, V86.0, ICD10: C50.412, Z17.0 pT1b (6 mm; grade 1; no ALI) pN0(sln) MX ER/CT positive, HER- 2 negative invasive ductal carcinoma of the left breast. ? Per Dr. Colmenares's previous note: -I had a detailed discussion with patient regarding the adjuvant treatment modalities of breast cancer. I first discussed the rationale for EBRT given the fact that she had a lumpectomy. -I spent the bulk of time discussing the decision for adjuvant chemotherapy based on traditional clinical and ?pathologic variables and further explained molecular testing and its role in aiding the decision regarding adjuvant chemotherapy. I recommended an Oncotype DX test and discussed with her how this test is performed and how the results would be used in determining the potential benefit of adjuvant chemotherapy. -We also discussed hormonal therapy. I explained that tamoxifen would be recommended based on her perimenopausal status. The goal would be to complete one to 2 years of tamoxifen and then rotated to an aromatase inhibitor with the aim is completing 5-10 years worth of therapy. Plan: -Obtain Oncotype testing. -Radiation referral. She would like to get all of her appointments in before the end of the year possible. She is aware that radiation may not start until after the first of the year if she needs chemotherapy. -Office visit in 2 weeks to review. ? - No concerning findings on exam. - Tamoxifen-tolerating well. Continue. She was advised to hold for her hernia surgery. - Mammogram due in April-pt. has this done at [facility]. - Follow up in 3 months. - Pt. aware to call office with any questions/concerns. ? The patient indicates understanding of these issues and agrees with the plan. Mariana Gacria APRN.[place] Referring Provider: CARLTON COLMENARES [[id number]] Allergies As of Date: 03/18/2018 (No Known Allergies) Date Reviewed: 03/18/2018 Reviewed by: Mariana ([employer] Fence Erector) Jose - Fully Assessed Reason for Visit: Established Patient [175] Primary Visit Diagnosis:Malignant neoplasm of upper-outer quadrant of left breast in female, estrogen receptor positive (HCC) [C50.412, Z17.0] Follow-up and Disposition History Recorded Prescriptions as of 03/18/2018 Sig: TAMOXIFEN 20 MG TABLET Take 1 tablet by mouth once d* MULTIVITAMIN TABLET Take 1 tablet by mouth once d* Problem List As Of Date 03/18/2018 Noted Resolved History of melanoma [Z85.820] INVALID FOR* More... Malignant neoplasm of upper-outer quadrant of l*INVALID FOR* Visit Notes: >> Shelley Arceo SHANKAR Fri Mar 18, 2018 12:37 PM Status: Signed Est patient. Three month office visit. Being worked up for thyroid issues. Shelley Arceo SHANKAR Encounter Status:Closed by MARIANA GARCIA CNP on 03/18/18 PROGRESS Observed: 03/18/2018 Status: COMPLETED Source: [place] 12:44 PM [facility] REPOSITORY HNO ID: [id number] Author: Mariana ([place]) Jose Service: (none) Author Type: Nurse Practitioner Type: Progress Notes Filed: 03/18/2018 1:23 PM Note Text: Chief Complaint Patient presents with: Established Patient HPI: Lorena Meléndez is a 47 year old female who presents here today for follow up breast cancer. Per Dr. Colmenares's previous note: H/o abnormality in left breast on a screening mammogram done in April 2017. ? Biopsy 06/03/2017: MICROSCOPIC DIAGNOSIS Left breast, stereotactic needle core biopsy: ?Intraductal hyperplasia with atypia. ?Focal atypical lobular hyperplasia. See comment. ?Frequent microcalcifications. ? Underwent needle localization with excisional biopsy on 07/14/2017: MICROSCOPIC DIAGNOSIS Left breast, needle localization biopsy: ?Invasive ductal carcinoma. ?Ductal carcinoma in situ. ?Atypical lobular hyperplasia. ?See cancer summary below. ? INVASIVE BREAST CANCER SUMMARY: ??Specimen ??partial breast ??Procedure ??excision with wire-guided localization ??Lymph node sampling ??no lymph node present ??Specimen integrity ??single intact specimen ??Specimen size ??4 x 3.5 x 2 cm ??Specimen laterality - left ??Tumor site ??not specified ??Tumor size ??0.6 x 0.6 x 0.5 cm ??Tumor focality ??single focus of invasive carcinoma ??Macroscopic and Microscopic extent of tumor: ?Skin ??invasive carcinoma does not invade into the dermis or epidermis ?Nipple ??not applicable ?Skeletal muscle ??no skeletal muscle present ??Ductal carcinoma in situ (DCIS) ??ductal carcinoma in situ is present ???Extensive intraductal component (EIC) ??negative ?The ductal carcinoma is present adjacent to invasive carcinoma and comprise about 10% of the total tumor volume. ?Number of blocks with DCIS - 3 ?Number of blocks examined - 12 ??Architectural pattern ??cribriform ?Nuclear grade ??grade 1 (low) ?Necrosis ??single cell necrosis. ??Lobular carcinoma in situ (LCIS) ??not identified ??Histologic type of invasive carcinoma ??invasive ductal carcinoma (no special type) ??Histologic Grade: [place] grade: ?Glandular/tubular differentiation - score 1 ?Nuclear pleomorphism - score 2 ?Mitotic count ??score 1 ?Overall grade - 1 (score of 4) ??Margins: ?Margins uninvolved by invasive carcinoma. ?The tumor is <0.1 cm away from the closest posterior margin. ?Margins uninvolved by DCIS. ?The tumor is 0.4 cm away from the closest posterior margin. ? ??Treatment effect: ?Response to presurgical neoadjuvant therapy - no known presurgical therapy. ??Lymph-Vascular invasion ??not identified ??Dermal lymph-vascular invasion ??not present ??Lymph nodes: ?No nodes submitted or found. ??Distance metastasis ??not applicable ??Additional pathologic findings ??intraductal hyperplasia without atypia. ?- Changes consistent with previous biopsy site. ?- Focal atypical lobular hyperplasia. ?See comment.?Ancillary studies - ?[id number]. ?ER ??positive (>95%, moderate) ?CT - positive (>95%, moderate) ?Her2 maegan ??negative (0) ?Her2 by dual TEN ??not performed. ??Microcalcifications ??present in both tumor and non-neoplastic tissue. ??Clinical history ??Please make reference to previous specimen ([id number]) left breast, stereotactic needle core biopsy with diagnosis of intraductal hyperplasia with atypia and focal atypical lobular hyperplasia. ? ??PATHOLOGIC STAGE: ?pT1b ?pNx ?Mx ? Underwent sentinel lymph node biopsy on 08/26/2017: FROZEN SECTION DIAGNOSIS A. ?Left axillary sentinel lymph node #1, biopsy: ?One out of one lymph node negative for carcinoma. B. ?Left axillary sentinel lymph node #2, biopsy: ?One out of one lymph node negative for carcinoma. C. ?Left axillary sentinel lymph node #3, biopsy: ?One out of one lymph node negative for carcinoma. ? MICROSCOPIC DIAGNOSIS A. ?Left axillary sentinel lymph node #1, biopsy: ?1 out of 1 lymph node negative for carcinoma. B. ?Left axillary sentinel lymph node #2, biopsy: ?1 out of 1 lymph node negative for carcinoma. C. ?Left axillary sentinel lymph node #3, biopsy: ?1 out of 1 lymph node negative for carcinoma. ? COMMENT Immunohistochemistry ([id number]) supports the above diagnosis. Reference is made to the patient?s left breast lumpectomy ([id number]) in which invasive ductal carcinoma was identified. ? Mother had breast cancer at age 50. Patient had BRCA mutation testing--negative. ? Patient perimenopausal. ? ? Oncotype Dx:Recurrence score was 8 suggesting an average recurrence rate of 6% over the next 10 years. ? ? RADIATION:10/14/17 to 11/11/17 ? Current therapy:tamoxifen ? I need to have a thyroid biopsy, colonoscopy and hernia surgery. I'm busy. ? Appetite:good Energy level:Exhausting-I'm in a new position at work. Denies fevers or recent illness. Resp:denies cough or sob Cardiac:denies chest pain/palpitations GI:denies abd pain-I will get some pain from my hernias, n/v, moving bowels regularly :denies dysuira/hematuria Extrem:denies pain to back/bones/joints Endo:denies hot flashes Neuro:denies symptoms of neuropathy Skin:denies rashes/lesions Heme:denies bleeding LMP November 2017-prior to this early May ? The ROS is otherwise negative. Past medical history, appointments, medications, allergies reviewed. No changes. EXAM: BP 103/70 Pulse 76 Temp 37.1 ?C (98.8 ?F) (Oral) Wt 59.4 kg (131 lb) BMI 23.58 kg/m? APPEARANCE Well appearing, alert, in no acute distress, well-hydrated, well nourished. HEART RRR with normal S1 and S2, no murmurs LUNG clear to auscultation BREAST FEMALE no mass/nodule b/l, L scar to upper/radiation changes LYMPH NODES No cervical lymphadenopathy, No supraclavicular lymphadenopathy and No axillary lymphadenopathy. ABDOMEN bowel sounds normoactive, no bruits, soft, non-tender, non-distended, without organomegaly or palpable masses EXTREMITIES No edema NEURO Awake, alert and oriented x 3, Normal gait and No involuntary motions. SKIN Skin color, texture, turgor normal, no suspicious rashes or lesions ASSESSMENT/PLAN: 1. Malignant neoplasm of upper-outer quadrant of left breast in female, estrogen receptor positive (HCC) - ICD9: 174.4, V86.0, ICD10: C50.412, Z17.0 pT1b (6 mm; grade 1; no ALI) pN0(sln) MX ER/CT positive, HER- 2 negative invasive ductal carcinoma of the left breast. ? Per Dr. Colmenares's previous note: -I had a detailed discussion with patient regarding the adjuvant treatment modalities of breast cancer. I first discussed the rationale for EBRT given the fact that she had a lumpectomy. -I spent the bulk of time discussing the decision for adjuvant chemotherapy based on traditional clinical and ?pathologic variables and further explained molecular testing and its role in aiding the decision regarding adjuvant chemotherapy. I recommended an Oncotype DX test and discussed with her how this test is performed and how the results would be used in determining the potential benefit of adjuvant chemotherapy. -We also discussed hormonal therapy. I explained that tamoxifen would be recommended based on her perimenopausal status. The goal would be to complete one to 2 years of tamoxifen and then rotated to an aromatase inhibitor with the aim is completing 5-10 years worth of therapy. Plan: -Obtain Oncotype testing. -Radiation referral. She would like to get all of her appointments in before the end of the year possible. She is aware that radiation may not start until after the first of the year if she needs chemotherapy. -Office visit in 2 weeks to review. ? - No concerning findings on exam. - Tamoxifen-tolerating well. Continue. She was advised to hold for her hernia surgery. - Mammogram due in April-pt. has this done at [facility]. - Follow up in 3 months. - Pt. aware to call office with any questions/concerns. ? The patient indicates understanding of these issues and agrees with the plan. Mariana Garcia APRN.SEROLOGY TECHNICIAN SURGERY VISIT REPORT Observed: 03/14/2018 Status: F Source: [place] 12:11 PM [facility] REPOSITORY [facility] [address] [place] [address]. 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 pylori infection (Acute) Pancreatic cyst (Acute) Right inguinal hernia (Acute) Ulcer (Acute) Ventral hernia (Acute) Surgical History Atypical ductal hyperplasia of breast (Acute) H/O tubal ligation (Acute) S/P lumpectomy, left breast (Acute) Family History Mother Breast cancer Arthritis Father CAD (coronary artery disease) Cancer Social History Smoking Status: Current every day smoker second hand exposure: Yes alcohol intake: current alcohol intake frequency: holidays/special occasions only substance use type: does not use caffeine: Yes what type of physical activity do you participate in: none frequency: does not exercise seatbelt use: always HPI HPI HPI: LORENA MELÉNDEZ, is a 47 F who presents to the office today for for follow-up status post her left invasive ductal carcinoma status post radiation which was completed in October. Patient also previously had 2 ventral hernias and right inguinal hernia prior to her diagnosis of breast cancer. 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 And states her abdominal pain from her ventral hernias only occurs with heavier weights and that can be 6 7/10. But does not occur as often as a right groin. Patient does state that she had some blood vessels that would burst near the skin in her left arm and she had an ultrasound of that arm showed no DVTs however there is noted to be a need for ultrasound of the thyroid. Which patient is getting done next week. Patient is currently on tamoxifen as well. She is interested in getting hernias repaired. Patient also does state that there was gene in her genetic testing that may have been positive that could have something to do with the colon. However she does have a strong family history on her mom's side in her mom's cousins of colon cancer, but her mom did not have any colon cancer. ROS General General: Yes breast cancer, weight change and fatigue; no colon cancer Gastro Gastrointestinal: Yes abdominal pain, Yes nausea or vomiting (Occasional nausea no vomiting), No diarrhea, No constipation, No blood in stool Exam Const General: cooperative, comfortable, no acute distress Chest Other: Left breast and axillary incision clean dry and intact. Bilateral breasts no obvious masses appreciated or changes overlying skin or nipple discharge. No axillary adenopathy or subclavicular adenopathy bilaterally. Resp Auscultation: clear to auscultation bilaterally Cardio Rate: regular rate Rhythm: regular rhythm GI Inspection: non-distended Palpation: soft, tender (Above the umbilicus at her ventral hernias.), no guarding Other: On exam patient also has a right inguinal hernia reducible with laying down and pressure, mild +ttp. No obvious hernia on the left. Assessment AND Plan Problems 1. Invasive ductal carcinoma of left breast C50.912 2. Ventral incisional hernia without obstruction or gangrene K43.2 3. Right inguinal hernia K40.90 4. Family history of colon cancer Z80.0 Plan Patient has completed radiation and will get her follow-up screening mammogram in one year from her last one. She will continue taking tamoxifen. Discussed with patient that the ventral and right inguinal hernia could be repaired both with an open approach. We will plan for possible mesh on the larger of the 2 ventral hernias which are only 1 cm apart. Discussed with patient the procedure of open ventral hernia repair and open right inguinal hernia repair. Plan to do a right inguinal herniorrhaphy with mesh and open ventral hernia repair with possible mesh. Reviewed the procedure with the patient including the risks, including but not limited to infection, bleeding, paresthesia, chronic pain, injury to small bowel or contents of the spermatic cord, and recurrence. All questions were answered. Discussed with patient we will may stop her tamoxifen prior to surgery as she could be at increased risk for DVT. Patient also is getting ultrasound of the thyroid. Discussed with patient that would proceed with thyroid biopsy if needed prior to elective hernia repairs. Will look at patient's genetic testing to see if there is any reason for her to have a colonoscopy at a younger age as she is 47 right now no immediate family is with colon cancer however she does have several first cousins on her mom's side one was diagnosed age 52 and also see if the genetic test will warrants colonoscopy been done sooner than the average age. However did talk talk with the patient the [place] cancer sided changes screening age 89 however unsure if insurances will currently pay for that. Patient no further questions at this time. We will follow- up the patient once her thyroid ultrasound is done. Terri Roman M.D. Pager: [phone] [facility] [address] [place] [address], [facility], [address] [place] [address] Office: [phone] Plan Detail Follow Up 1 (Will follow patient with ultrasound is done to see when we can schedule her hernia repairs.) Coding Level of Care Code Off vis,est,level 4 Diagnoses Invasive ductal carcinoma of left breast C50.912 Ventral incisional hernia without obstruction or gangrene K43.2 Right inguinal hernia K40.90 Family history of colon cancer Z80.0 Time Spent (min) 25 03/14/18 1211 <Electronically signed by Terri Roman MD> Date Terri Roman MD Cosigner Signature: Date (if applicable) CC: Lauren Luna; Carlton Colmenares DO US HEAD/NECK SOFT Observed: 03/14/2018 Status: F Source: [place] 7:57 AM SYSTEM REPOSITORY Patient Name: LORENA MELÉNDEZ Ultrasound Exam Date/Time 03/11/2018 13:52:57 EDT Exam US Head/Neck Soft Tissue Ordering Physician MD LUNA CATHERINE Accession Number [id number] CPT4 Codes 42170 () Reason For Exam ltiple thyroid nodules (E04.2 [ICD-10-CM] 241.1 [ICD-9-CM]) Report Ultrasound thyroid CLINICAL INDICATION: Multiple thyroid nodules Right and left thyroid lobes measure 5.2 x 1.6 x 2.0 cm and 4.7 x 1.3 x 1.5 cm. Thyroid isthmus is 0.8 cm in thickness. Multiple nodules are noted throughout the thyroid gland which have a homogeneous population appearance, with nodules predominantly spongiform. The largest nodule within the right thyroid lobe lower pole and measures 2.8 x 1.4 x 1.8 cm. The nodule is circumscribed, spongiform, isoechoic and contains both comet tail artifact and punctate echogenic foci which are not clearly comet tails. Assuming that the punctate echogenic foci are microcalcifications, this nodule is TI-RADS 4 and with the size of the nodule needle aspiration biopsy is recommended. The next largest nodule is also on the right, located at the upper pole and is a circumscribed spongiform isoechoic nodule which has similar echogenic foci including both comet tail artifacts and punctate echogenic foci. The nodule measures 1.5 x 0.7 x 1.3 cm and is TI-RADS 4 with surveillance follow-up recommended in one year. On the left the largest nodule is at mid pole and is a circumscribed isoechoic spongiform nodule which measures 1.3 x 0.6 x 0.9 cm. This nodule also contains a combination of, tail and punctate echogenic foci making it a TI-RADS 4 lesion and surveillance ultrasound in one year is recommended. The next largest nodule on the left is at the lower pole. This nodule is circumscribed and appears solid, isoechoic with a hypoechoic halo and contains no echogenic foci. The nodule measures 1.2 x 0.6 x 0.8 cm and is a TI-RADS 3. This is below size criteria for surveillance and no additional specific directed imaging for this nodule is recommended. On the right side of the isthmus there is a circumscribed isoechoic spongiform nodule which measures 1.8 x 0.5 x 1.3 cm and contains the same combination of comet tail and punctate echogenic foci as the other spongiform nodules, making it also TI-RADS 4. Surveillance ultrasound in one year is recommended. IMPRESSION: Multiple spongiform nodules with combination of comet tail and punctate echogenic foci are noted throughout the thyroid gland. The largest nodule in the lower pole the right thyroid lobe reaches criteria for biopsy. The remainder of the spongiform nodules which are mentioned above are within range for ultrasound surveillance in one year. Regarding my biopsy recommendation, I left a message for Dr. Luna with Reva at the office about 8:18 AM 03/14/2018. Report Dictated on Final Dictated: 03/14/2018 7:57 am Dictating Physician: MD MCLEOD DIANE Signed Date and Time: 03/14/2018 8:20 am Signed by: MD MCLEOD DIANE Transcribed Date and Time: 03/14/2018 7:57 VL VENOUS DUPLEX US Observed: 03/04/2018 Status: F Source: [facility] UPPER EXT LEFT 4:15 PM SYSTEM REPOSITORY Patient Name: LORENA MELÉNDEZ Ultrasound Exam Date/Time 03/04/2018 16:45:00 EDT Exam VL Venous Duplex US Upper Ext Left Ordering Physician MD LUNA CATHERINE Accession Number [id number] CPT4 Codes 58922 () Reason For Exam Left arm swelling Report [facility] --- Left Upper Extremity Venous Duplex Report Patient Name: Lorena Meléndez : 1970 Study 03/04/2018 (47yrs) Date: Age: 47 Account: [id number] Gender: F Loc: BP: Ordering: Lauren Luna Technologist: Ordering Physician: Lauren Luna Senior Economist: Mirella Pereira RDMS, T Interpreting Physician: Angelita Amaya MD --- Location: [facility] --- INDICATIONS: Swelling of limb - left arm. --- CONCLUSIONS 1. These findings are negative for deep or superficial vein thrombosis in the left upper extremity. Two left-sided thyroid masses are noted incidentally. The largest nodule is 1.3 x 0.9 x 0.7cm with calcifications. --- IMPRESSIONS: - The superficial and deep systems of the left upper extremity appear to be free of thrombus - These findings are negative for deep or superficial vein thrombosis in the left upper extremity. - Two left-sided thyroid masses are noted incidentally. The largest nodule is 1.3 x 0.9 x 0.7cm with calcifications. --- HISTORY: Left upper extremity pain - forearn x 4-6 weeks. Swelling in the left upper extremity - mid forearm x 9 months. Redness in the left upper extremity, itchy, warm, tingly sensation - intermittent - posterior forearm. Risk factors: Current tobacco use - 1 1/2 ppd x 20+ years. Hypercoagulable state due to hormone replacement therapy - taking tamoxifen due to breast cancer. Malignancy: Breast cancer 2016. --- STUDY DATA: Left upper extremity venous duplex. Birthdate: Patient birthdate: 1970. Age: Patient is 47 yr old. Sex: Gender: female. Ethnicity: Ethnicity: white. Doppler flow study including spectral analysis, color and mulligan scale imaging. Patient status: Outpatient. Procedure: A vascular evaluation was performed. The images were obtained using a [employer] vascular ultrasound machine. --- VENOUS FLOW AND IMAGING: + + --+ !Location !Flow properties ! + + --+ !Left internal jugular!Normal phasicity; spontaneous; normal augmentation; ! ! !compressible ! + + --+ !Left innominate !Spontaneous; normal augmentation ! + + --+ !Left subclavian !Normal phasicity; spontaneous; normal augmentation; ! ! !compressible ! + + --+ !Left axillary !Normal phasicity; spontaneous; normal augmentation; ! ! !compressible ! + + --+ !Left brachial !Normal phasicity; spontaneous; normal augmentation; ! ! !compressible ! + + --+ !Left radial !Compressible ! + + --+ !Left ulnar !Compressible ! + + --+ !Left basilic !Compressible ! + + --+ !Left cephalic !Compressible ! + + --+ !Right subclavian !Normal phasicity; spontaneous; normal augmentation; ! ! !compressible ! + + --+ Electronically signed by: Angelita Amaya MD [id number] Final Dictated: 03/07/2018 10:19 am Dictating Physician: ANGELITA AMAYA Signed Date and Time: 03/07/2018 10:19 am Signed by: ANGELITA AMAYA CNOVSP Observed: 12/08/2017 Status: COMPLETED Source: [place] 8:30 AM [facility] REPOSITORY Visit (SP) Office ([place]) LORENA MELÉNDEZ ([id number]) 1970 F Date Time Provider Department 12/08/17 8:30 AM MARIANA GARCIA CNP During your visit today, we recorded the following information about you: Temperature Pulse Blood pressure Weight 98.1 degrees 80/minute 106/71 64.9 kg Shelley Arceo LPN 12/08/2017 8:38 AM Signed Est patient. Patient would like to discuss next step in plan of care since finishing radiation. Shelley Garcia CNP 12/08/2017 1:20 PM Signed Chief Complaint Patient presents with: Established Patient HPI: Lorena Meléndez is a 47 year old female who presents here today for follow up breast cancer. Per Dr. Colmenares's previous note: H/o abnormality in left breast on a screening mammogram done in April of this year. ? Biopsy 06/03/2017: MICROSCOPIC DIAGNOSIS Left breast, stereotactic needle core biopsy: Intraductal hyperplasia with atypia. Focal atypical lobular hyperplasia. See comment. Frequent microcalcifications. ? Underwent needle localization with excisional biopsy on 07/14/2017: MICROSCOPIC DIAGNOSIS Left breast, needle localization biopsy: Invasive ductal carcinoma. Ductal carcinoma in situ. Atypical lobular hyperplasia. See cancer summary below. ? INVASIVE BREAST CANCER SUMMARY: Specimen ? partial breast Procedure ? excision with wire-guided localization Lymph node sampling ? no lymph node present Specimen integrity ? single intact specimen Specimen size ? 4 x 3.5 x 2 cm Specimen laterality - left Tumor site ? not specified Tumor size ? 0.6 x 0.6 x 0.5 cm Tumor focality ? single focus of invasive carcinoma Macroscopic and Microscopic extent of tumor: Skin ? invasive carcinoma does not invade into the dermis or epidermis Nipple ? not applicable Skeletal muscle ? 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 negative The ductal carcinoma is present adjacent to invasive carcinoma and comprise about 10% of the total tumor volume. Number of blocks with DCIS - 3 Number of blocks examined - 12 Architectural pattern ? cribriform Nuclear grade ? grade 1 (low) Necrosis ? single cell necrosis. Lobular carcinoma in situ (LCIS) ? not identified Histologic type of invasive carcinoma ? invasive ductal carcinoma (no special type) Histologic Grade: [place] grade: Glandular/tubular differentiation - score 1 Nuclear pleomorphism - score 2 Mitotic count ? score 1 Overall grade - 1 (score of 4) Margins: Margins uninvolved by invasive carcinoma. The tumor is ANDlt;0.1 cm away from the closest posterior margin. Margins uninvolved by DCIS. The tumor is 0.4 cm away from the closest posterior margin. Treatment effect: Response to presurgical neoadjuvant therapy - no known presurgical therapy. Lymph-Vascular invasion ? not identified Dermal lymph-vascular invasion ? not present Lymph nodes: No nodes submitted or found. Distance metastasis ? not applicable Additional pathologic findings ? intraductal hyperplasia without atypia. - Changes consistent with previous biopsy site. - Focal atypical lobular hyperplasia. See comment. Ancillary studies - [id number]. ER ? positive (ANDgt;95%, moderate) CT - positive (ANDgt;95%, moderate) Her2 maegan ? negative (0) Her2 by dual TEN ? not performed. Microcalcifications ? present in both tumor and non-neoplastic tissue. Clinical history ? Please make reference to previous specimen ([id number]) left breast, stereotactic needle core biopsy with diagnosis of intraductal hyperplasia with atypia and focal atypical lobular hyperplasia. ? PATHOLOGIC STAGE: pT1b pNx Mx ? Underwent sentinel lymph node biopsy on 08/26/2017: FROZEN SECTION DIAGNOSIS A. Left axillary sentinel lymph node #1, biopsy: One out of one lymph node negative for carcinoma. B. Left axillary sentinel lymph node #2, biopsy: One out of one lymph node negative for carcinoma. C. Left axillary sentinel lymph node #3, biopsy: One out of one lymph node negative for carcinoma. ? MICROSCOPIC DIAGNOSIS A. Left axillary sentinel lymph node #1, biopsy: 1 out of 1 lymph node negative for carcinoma. B. Left axillary sentinel lymph node #2, biopsy: 1 out of 1 lymph node negative for carcinoma. C. Left axillary sentinel lymph node #3, biopsy: 1 out of 1 lymph node negative for carcinoma. ? COMMENT Immunohistochemistry ([id number]) supports the above diagnosis. Reference is made to the patient?s left breast lumpectomy ([id number]) in which invasive ductal carcinoma was identified. ? Mother had breast cancer at age 50. Patient had BRCA mutation testing--negative. ? Patient perimenopausal. Oncotype Dx:Recurrence score was 8 suggesting an average recurrence rate of 6% over the next 10 years. 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 Resp:denies cough or sob Cardiac:denies chest pain/palpitations GI:denies abd pain, n/v, moving bowels regularly :denies dysuira/hematuria Extrem:denies pain to back/bones/joints -surgical pain to L breast Endo:denies hot flashes ANDquot;I sometimes get warm at night. This started before all of this.ANDquot; Neuro:denies symptoms of neuropathy Skin:denies rashes/lesions Heme:denies bleeding LMP November 2017-prior to this early ROS is otherwise negative. Past medical history, appointments, medications, allergies reviewed. No changes. EXAM: BP 106/71 Pulse 80 Temp 36.7 ?C (98.1 ?F) Wt 64.9 kg (143 lb) LMP 11/25/2017 BMI 25.74 kg/m2 APPEARANCE Well appearing, alert, in no acute distress, well- hydrated, well nourished. HEART RRR with normal S1 and S2, no murmurs LUNG clear to auscultation BREAST FEMALE no mass/nodule b/l, L radiation changes/scar to upper/outer LYMPH NODES No cervical lymphadenopathy, No supraclavicular lymphadenopathy and No axillary lymphadenopathy. ABDOMEN bowel sounds normoactive, no bruits, soft, non-tender, non-distended, without organomegaly or palpable masses EXTREMITIES No edema NEURO Awake, alert and oriented x 3, Normal gait and No involuntary motions. SKIN Skin color, texture, turgor normal, no suspicious rashes or lesions ASSESSMENT/PLAN: 1. Malignant neoplasm of upper-outer quadrant of left breast in female, estrogen receptor positive (HCC) - ICD9: 174.4, V86.0, ICD10: C50.412, Z17.0 pT1b (6 mm; grade 1; no ALI) pN0(sln) MX ER/CT positive, HER- 2 negative invasive ductal carcinoma of the left breast. Per Dr. Colmenares's previous note: -I had a detailed discussion with patient regarding the adjuvant treatment modalities of breast cancer. I first discussed the rationale for EBRT given the fact that she had a lumpectomy. -I spent the bulk of time discussing the decision for adjuvant chemotherapy based on traditional clinical and pathologic variables and further explained molecular testing and its role in aiding the decision regarding adjuvant chemotherapy. I recommended an Oncotype DX test and discussed with her how this test is performed and how the results would be used in determining the potential benefit of adjuvant chemotherapy. -We also discussed hormonal therapy. I explained that tamoxifen would be recommended based on her perimenopausal status. The goal would be to complete one to 2 years of tamoxifen and then rotated to an aromatase inhibitor with the aim is completing 5-10 years worth of therapy. Plan: -Obtain Oncotype testing. -Radiation referral. She would like to get all of her appointments in before the end of the year possible. She is aware that radiation may not start until after the first of the year if she needs chemotherapy. -Office visit in 2 weeks to review. ? - No concerning findings on exam. - Discussed tamoxifen and potential side effects. Pt. agreeable. Rx done. Hand-out given. - Discussed follow up plan with pt. - Follow up in 3 months. - Pt. aware to call office with any questions/concerns. The patient indicates understanding of these issues and agrees with the plan. Mariana Garcia CNP Referring Provider: CARLTON COLMENARES [[id number]] Allergies As of Date: 12/08/2017 (No Known Allergies) Date Reviewed: 12/08/2017 Reviewed by: Mariana (Wood Fence Erector) Jose - Fully Assessed Reason for Visit: Established Patient [175] Primary Visit Diagnosis:Malignant neoplasm of upper-outer quadrant of left breast in female, estrogen receptor positive (HCC) [C50.412, Z17.0] Order(s):tamoxifen (NOLVADEX) 20 mg tabletTake 1 tablet by mouth once daily.Disp: 90 tabletRfl: 3 Follow-up and Disposition History Recorded Prescriptions as of 12/08/2017 Sig: MULTIVITAMIN TABLET Take 1 tablet by mouth once d* TAMOXIFEN 20 MG TABLET Take 1 tablet by mouth once d* Medication notes this encounter MULTIVITAMIN TABLET >> Shelley Arceo LPN 12/08/2017 8:26 AM >> SHELLEY ARCEO LPN WedDec 08, 2017 8:26 AM Taking Problem List As Of Date 12/08/2017 Noted Resolved History of melanoma [Z85.820] INVALID FOR* More... Malignant neoplasm of upper-outer quadrant of l*INVALID FOR* Visit Notes: >> Shelley Arceo LPN WedDec 08, 2017 8:26 AM Status: Signed Est patient. Patient would like to discuss next step in plan of care since finishing radiation. Shelley Arceo SHANKAR Encounter Status:Closed by MARIANA GARCIA CNP on 12/08/17 PROGRESS Observed: 12/08/2017 Status: COMPLETED Source: [place] 8:27 AM [facility] REPOSITORY HNO ID: [id number] Author: Mariana ([place]) Jose Service: (none) Author Type: Nurse Practitioner Type: Progress Notes Filed: 12/08/2017 1:20 PM Note Text: Chief Complaint Patient presents with: Established Patient HPI: Lorena Meléndez is a 47 year old female who presents here today for follow up breast cancer. Per Dr. Colmenares's previous note: H/o abnormality in left breast on a screening mammogram done in April of this year. ? Biopsy 06/03/2017: MICROSCOPIC DIAGNOSIS Left breast, stereotactic needle core biopsy: Intraductal hyperplasia with atypia. Focal atypical lobular hyperplasia. See comment. Frequent microcalcifications. ? Underwent needle localization with excisional biopsy on 07/14/2017: MICROSCOPIC DIAGNOSIS Left breast, needle localization biopsy: Invasive ductal carcinoma. Ductal carcinoma in situ. Atypical lobular hyperplasia. See cancer summary below. ? INVASIVE BREAST CANCER SUMMARY: Specimen ? partial breast Procedure ? excision with wire-guided localization Lymph node sampling ? no lymph node present Specimen integrity ? single intact specimen Specimen size ? 4 x 3.5 x 2 cm Specimen laterality - left Tumor site ? not specified Tumor size ? 0.6 x 0.6 x 0.5 cm Tumor focality ? single focus of invasive carcinoma Macroscopic and Microscopic extent of tumor: Skin ? invasive carcinoma does not invade into the dermis or epidermis Nipple ? not applicable Skeletal muscle ? 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 negative The ductal carcinoma is present adjacent to invasive carcinoma and comprise about 10% of the total tumor volume. Number of blocks with DCIS - 3 Number of blocks examined - 12 Architectural pattern ? cribriform Nuclear grade ? grade 1 (low) Necrosis ? single cell necrosis. Lobular carcinoma in situ (LCIS) ? not identified Histologic type of invasive carcinoma ? invasive ductal carcinoma (no special type) Histologic Grade: [place] grade: Glandular/tubular differentiation - score 1 Nuclear pleomorphism - score 2 Mitotic count ? score 1 Overall grade - 1 (score of 4) Margins: Margins uninvolved by invasive carcinoma. The tumor is <0.1 cm away from the closest posterior margin. Margins uninvolved by DCIS. The tumor is 0.4 cm away from the closest posterior margin. Treatment effect: Response to presurgical neoadjuvant therapy - no known presurgical therapy. Lymph-Vascular invasion ? not identified Dermal lymph-vascular invasion ? not present Lymph nodes: No nodes submitted or found. Distance metastasis ? not applicable Additional pathologic findings ? intraductal hyperplasia without atypia. - Changes consistent with previous biopsy site. - Focal atypical lobular hyperplasia. See comment. Ancillary studies - [id number]. ER ? positive (>95%, moderate) CT - positive (>95%, moderate) Her2 maegan ? negative (0) Her2 by dual TEN ? not performed. Microcalcifications ? present in both tumor and non-neoplastic tissue. Clinical history ? Please make reference to previous specimen ([id number]) left breast, stereotactic needle core biopsy with diagnosis of intraductal hyperplasia with atypia and focal atypical lobular hyperplasia. ? PATHOLOGIC STAGE: pT1b pNx Mx ? Underwent sentinel lymph node biopsy on 08/26/2017: FROZEN SECTION DIAGNOSIS A. Left axillary sentinel lymph node #1, biopsy: One out of one lymph node negative for carcinoma. B. Left axillary sentinel lymph node #2, biopsy: One out of one lymph node negative for carcinoma. C. Left axillary sentinel lymph node #3, biopsy: One out of one lymph node negative for carcinoma. ? MICROSCOPIC DIAGNOSIS A. Left axillary sentinel lymph node #1, biopsy: 1 out of 1 lymph node negative for carcinoma. B. Left axillary sentinel lymph node #2, biopsy: 1 out of 1 lymph node negative for carcinoma. C. Left axillary sentinel lymph node #3, biopsy: 1 out of 1 lymph node negative for carcinoma. ? COMMENT Immunohistochemistry ([id number]) supports the above diagnosis. Reference is made to the patient?s left breast lumpectomy ([id number]) in which invasive ductal carcinoma was identified. ? Mother had breast cancer at age 50. Patient had BRCA mutation testing--negative. ? Patient perimenopausal. Oncotype Dx:Recurrence score was 8 suggesting an average recurrence rate of 6% over the next 10 years. 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 Appetite:good Energy level:it's my normal. Denies fevers. Resp:denies cough or sob Cardiac:denies chest pain/palpitations GI:denies abd pain, n/v, moving bowels regularly :denies dysuira/hematuria Extrem:denies pain to back/bones/joints -surgical pain to L breast Endo:denies hot flashes I sometimes get warm at night. This started before all of this. Neuro:denies symptoms of neuropathy Skin:denies rashes/lesions Heme:denies bleeding LMP November 2017-prior to this early The ROS is otherwise negative. Past medical history, appointments, medications, allergies reviewed. No changes. EXAM: BP 106/71 Pulse 80 Temp 36.7 ?C (98.1 ?F) Wt 64.9 kg (143 lb) LMP 11/25/2017 BMI 25.74 kg/m2 APPEARANCE Well appearing, alert, in no acute distress, well-hydrated, well nourished. HEART RRR with normal S1 and S2, no murmurs LUNG clear to auscultation BREAST FEMALE no mass/nodule b/l, L radiation changes/scar to upper/outer LYMPH NODES No cervical lymphadenopathy, No supraclavicular lymphadenopathy and No axillary lymphadenopathy. ABDOMEN bowel sounds normoactive, no bruits, soft, non-tender, non-distended, without organomegaly or palpable masses EXTREMITIES No edema NEURO Awake, alert and oriented x 3, Normal gait and No involuntary motions. SKIN Skin color, texture, turgor normal, no suspicious rashes or lesions ASSESSMENT/PLAN: 1. Malignant neoplasm of upper-outer quadrant of left breast in female, estrogen receptor positive (HCC) - ICD9: 174.4, V86.0, ICD10: C50.412, Z17.0 pT1b (6 mm; grade 1; no ALI) pN0(sln) MX ER/CT positive, HER- 2 negative invasive ductal carcinoma of the left breast. Per Dr. Colmenares's previous note: -I had a detailed discussion with patient regarding the adjuvant treatment modalities of breast cancer. I first discussed the rationale for EBRT given the fact that she had a lumpectomy. -I spent the bulk of time discussing the decision for adjuvant chemotherapy based on traditional clinical and pathologic variables and further explained molecular testing and its role in aiding the decision regarding adjuvant chemotherapy. I recommended an Oncotype DX test and discussed with her how this test is performed and how the results would be used in determining the potential benefit of adjuvant chemotherapy. -We also discussed hormonal therapy. I explained that tamoxifen would be recommended based on her perimenopausal status. The goal would be to complete one to 2 years of tamoxifen and then rotated to an aromatase inhibitor with the aim is completing 5-10 years worth of therapy. Plan: -Obtain Oncotype testing. -Radiation referral. She would like to get all of her appointments in before the end of the year possible. She is aware that radiation may not start until after the first of the year if she needs chemotherapy. -Office visit in 2 weeks to review. ? - No concerning findings on exam. - Discussed tamoxifen and potential side effects. Pt. agreeable. Rx done. Hand-out given. - Discussed follow up plan with pt. - Follow up in 3 months. - Pt. aware to call office with any questions/concerns. The patient indicates understanding of these issues and agrees with the plan. Mariana Garcia CNP PROGRESS Observed: 12/06/2017 Status: COMPLETED Source: [place] 8:43 AM [facility] REPOSITORY [facility] ID: [id number] Author: Archana Briones Service: (none) Author Type: Physician Type: Progress Notes Filed: 12/06/2017 8:50 AM Note Text: Radiation Oncology - Follow Up Note PATIENT NAME: Lorena Meléndez PATIENT DIAGNOSIS: Stage IA, T1bN0, invasive ductal carcinoma of the left breast s/p lumpectomy and sentinel node biopsy. It's ER positive (>95%, moderate), CT positive (>95%, moderate) and Her2/maegan 0, s/p radiation treatment finished on 11/11/17. INTERVAL HISTORY: She is here for a routine follow-up four weeks after completion of radiation treatment. She has mild tenderness in the inframammary fold area. ALLERGIES No Known Allergies MEDICATIONS: multivitamin tablet Take 1 tablet by mouth once daily. valACYclovir (VALTREX) 500 mg tablet Take 1 tablet by mouth once daily. Continuously. clotrimazole-betamethasone cream Apply 1 application to affected area twice daily. 10 days. nystatin (MYCOSTATIN) powder Apply 1 application to affected area twice daily. 10-14 days under breasts. PHYSICAL EXAM: VS: BP 106/59 Pulse 85 Temp 37.4 ?C (99.3 ?F) (Temporal Artery) Resp 20 Wt 66.9 kg (147 lb 8 oz) LMP 11/25/2017 SpO2 99% BMI 26.55 kg/m2 KPS: 90 General Appearance: Alert and oriented. No acute distress. Mild hyperpigmentation in the left breast more pronounced in the inframammary fold region. ASSESSMENT AND PLAN: Clinically stable. She is recovering well from acute radiation dermatitis. She will see Dr. Colmenares to start with hormone therapy within the next few weeks. I will see her in six months for a routine follow-up. Signed by: Archana Briones MD cc: Lauren Luna MD ([facility]) [address] [place] [address] CNOV Observed: 12/06/2017 Status: COMPLETED Source: [place] 8:30 AM [facility] REPOSITORY Office Visit (RADTWS) LORENA MELÉNDEZ ([id number]) 1970 F Date Time Provider Department 12/06/17 8:30 AM ARCHANA BRIONES During your visit today, we recorded the following information about you: Temperature Pulse Respiration Blood pressure 99.3 degrees 85/minute 20/minute 106/59 Weight Last Period 66.9 kg 11/25/17 Bret Steiner RN, RN 12/06/2017 8:39 AM Signed Radiation Therapy - Nursing Note (Follow-up) PATIENT NAME: Lorena Meléndez PATIENT December 06, 2017 [facility] FACILITY/LOCATION: [place] Reason for visit: Follow up. Subjective Data C/o tingling nerve pain to breast Additional Data Do you want to see a Engineering Technical Analyst? No Nursing Assessment Fatigue: none Appetite: good Weight Gain/Loss: No Last 6 Encounter Wt Readings: Date: Wt: 12/06/2017 66.9 kg (147 lb 8 oz) 09/15/2017 62.6 kg (138 lb) 09/07/2017 61.5 kg (135 lb 8 oz) 10/19/2012 69.9 kg (154 lb) 12/04/2011 69.4 kg (153 lb) 11/20/2011 67.1 kg (148 lb) Bowel Function: normal bowel movements Bone Pain: none Focused Assessment BREAST: Lymphedema Assessment: Is the patient noting any swelling? No. Was KP approved? did not have tablet SIGNED by: FELECIA Rome MD 12/06/2017 8:50 AM Signed Radiation Oncology - Follow Up Note PATIENT NAME: Lorena Meléndez PATIENT DIAGNOSIS: Stage IA, T1bN0, invasive ductal carcinoma of the left breast s/p lumpectomy and sentinel node biopsy. It's ER positive (ANDgt;95%, moderate), CT positive (ANDgt;95%, moderate) and Her2/maeagn 0, s/p radiation treatment finished on 11/11/17. INTERVAL HISTORY: She is here for a routine follow-up four weeks after completion of radiation treatment. She has mild tenderness in the inframammary fold area. ALLERGIES No Known Allergies MEDICATIONS: multivitamin tablet Take 1 tablet by mouth once daily. valACYclovir (VALTREX) 500 mg tablet Take 1 tablet by mouth once daily. Continuously. clotrimazole-betamethasone cream Apply 1 application to affected area twice daily. 10 days. nystatin (MYCOSTATIN) powder Apply 1 application to affected area twice daily. 10-14 days under breasts. PHYSICAL EXAM: VS: BP 106/59 Pulse 85 Temp 37.4 ?C (99.3 ?F) (Temporal Artery) Resp 20 Wt 66.9 kg (147 lb 8 oz) LMP 11/25/2017 SpO2 99% BMI 26.55 kg/m2 KPS: 90 General Appearance: Alert and oriented. No acute distress. Mild hyperpigmentation in the left breast more pronounced in the inframammary fold region. ASSESSMENT AND PLAN: Clinically stable. She is recovering well from acute radiation dermatitis. She will see Dr. Colmenares to start with hormone therapy within the next few weeks. I will see her in six months for a routine follow-up. Signed by: Archana Briones MD cc: Lauren Luna MD ([place] [id number] Referring Provider: ARCHANA BRIONES [[id number]] Allergies As of Date: 12/06/2017 (No Known Allergies) Date Reviewed: 12/06/2017 Reviewed by: Bret (Rn) FELECIA Steiner - Fully Assessed Reason for Visit: Recheck [92] Primary Visit Diagnosis:Malignant neoplasm of upper-outer quadrant of left breast in female, estrogen receptor positive (HCC) [C50.412, Z17.0] Prescriptions as of 12/06/2017 Sig: MULTIVITAMIN TABLET Take 1 tablet by mouth once d* VALACYCLOVIR 500 MG TABLET Take 1 tablet by mouth once d* CLOTRIMAZOLE-BETAMETHASONE 1 * Apply 1 application to affect* NYSTATIN 100,000 UNIT/GRAM TO* Apply 1 application to affect* Problem List As Of Date 12/06/2017 Noted Resolved History of melanoma [Z85.820] INVALID FOR* More... Malignant neoplasm of upper-outer quadrant of l*INVALID FOR* Visit Notes: >> Bret (Felecia) FELECIA Steiner [facility] Dec 06, 2017 8:38 AM Status: Signed Radiation Therapy - Nursing Note (Follow-up) PATIENT NAME: Lorena Meléndez PATIENT December 06, 2017 [facility] FACILITY/LOCATION: [place] Reason for visit: Follow up. Subjective Data C/o tingling nerve pain to breast Additional Data Do you want to see a Engineering Technical Analyst? No Nursing Assessment Fatigue: none Appetite: good Weight Gain/Loss: No Last 6 Encounter Wt Readings: Date: Wt: 12/06/2017 66.9 kg (147 lb 8 oz) 09/15/2017 62.6 kg (138 lb) 09/07/2017 61.5 kg (135 lb 8 oz) 10/19/2012 69.9 kg (154 lb) 12/04/2011 69.4 kg (153 lb) 11/20/2011 67.1 kg (148 lb) Bowel Function: normal bowel movements Bone Pain: none Focused Assessment BREAST: Lymphedema Assessment: Is the patient noting any swelling? No. Was approved? did not have tablet SIGNED by: Bret Steiner RN Encounter Status:Closed by ARCHANA BRIONES MD on 12/06/17 CNCNPATED Observed: 11/11/2017 Status: COMPLETED Source: [place] 12:00 AM [facility] REPOSITORY Education (RADTWS) LORENA MELÉNDEZ ([id number]) 1970 F Date Time Provider Department 11/11/17 ARCHANA BRIONES Reason for Visit: Patient Education [91] Cmt: completed radiation Visit Notes: >> Bret (Rn) FELECIA Steiner [facility] Nov 11, 2017 8:42 AM Status: Signed AMBULATORY PATIENT EDUCATION NOTE TOPIC: SURVIVAL SKILLS: Symptom Management READINESS TO LEARN COGNITIVE ABILITY: Alert and oriented MOTIVATION TO LEARN: Eager Interested FAMILY SUPPORT: Unable to assess - Family not present INSTRUCTION PROVIDED TO: Patient PATIENT LEARNS BEST BY: Individual Instruction Written Instruction - Hand-outs Verbal Instruction FACTORS AFFECTING LEARNING: None PHYSICAL LIMITATIONS AFFECTING LEARNING: None LEARNING RESPONSE METHOD OF INSTRUCTION: Teach Back skin care Individual instruction Written instruction - handouts Verbal instruction PATIENT / FAMILY RESPONSE: Verbalizes understanding of: SYMPTOM MANAGEMENT-Correct actions to take to manage symptoms associated with his/her disease/illness FOLLOW-UP PLAN: Patient instructed to call with any further issues Contact information given. Written discharge instructions given and reviewed with patient. Patient verbalizes understanding. Encouraged to call with any questions or concerns. Instruction for follow up appointment given by Dr. Briones. SUPPLEMENTAL MATERIAL: Title of written material: DC sheet REFERRAL (RECOMMENDATION): None Electronically Signed By: Bret Steiner RN In Department: RADIATION ONCOLOGY During your visit today, we recorded the following information about you: Allergies As of Date: 11/11/2017 (No Known Allergies) Date Reviewed: 11/09/2017 Reviewed by: Bret (Rn) FELECIA Steiner - Fully Assessed Prescriptions as of 11/11/2017 Sig: MULTIVITAMIN TABLET Take 1 tablet by mouth once d* VALACYCLOVIR 500 MG TABLET Take 1 tablet by mouth once d* CLOTRIMAZOLE-BETAMETHASONE 1 * Apply 1 application to affect* NYSTATIN 100,000 UNIT/GRAM TO* Apply 1 application to affect* Encounter Status:Closed by BRET STEINER on 11/11/17 PROGRESS Observed: 11/11/2017 Status: COMPLETED Source: [place] 12:00 AM [facility] REPOSITORY HNO ID: [id number] Author: Archana Briones Service: (none) Author Type: Physician Type: Progress Notes Filed: 11/12/2017 12:33 AM Note Text: CHELSYSUREKHAA [id number] : 1970 11/11/2017 [facility] Department of Radiation Oncology RADIATION ONCOLOGY - COMPLETION NOTE DATE OF SIMULATION: 10/11/17 DATES OF TREATMENT: 10/14/17 to 11/11/17 UNIT: W_TRUEBEAM AREA TREATED: Left breast DISEASE: Stage IA, T1bN0, invasive ductal carcinoma of the left breast s/p lumpectomy and sentinel node biopsy. It's ER positive (>95%, moderate), CT positive (>95%, moderate) and Her2/maegan 0. DELIVERED DOSE: 5256 cGy in 21 fractions. (4256 cGy in 16 fractions to the left breast to the 97.6% isodose line with 6 MV and 2 segmented valladares followed by 1000 cGy in 5 fractions boost to the tumor bed to the 90% isodose line with a 9 MeV electron beam en face field.) ELAPSED TIME: 28 days. TOLERANCE/ RESPONSE: She has mild pain in the left breast controlled well with occasional Tylenol. Left breast skin mild erythema REMARKS: She tolerated radiation treatment well. I will see her in four weeks for a routine follow-up. Electronically Signed ARCHANA BRIONES M.D. / 11/11/20179:29 AM cc: Lauren Luna MD ([place] [id number] Carlton Colmenares DO [address] [facility] [address] PROGRESS Observed: 11/09/2017 Status: COMPLETED Source: [place] 8:52 AM [facility] REPOSITORY HNO ID: [id number] Author: Archana Briones Service: (none) Author Type: Physician Type: Progress Notes Filed: 11/09/2017 8:55 AM Note Text: Radiation Oncology - On Treatment Review (OTR) Note PATIENT NAME: Lorena Meléndez PATIENT DIAGNOSIS: Stage IA, T1bN0, invasive ductal carcinoma of the left breast s/p lumpectomy and sentinel node biopsy. It's ER positive (>95%, moderate), CT positive (>95%, moderate) and Her2/maegan 0 COURSE: adjuvant AREA TREATED: Left breast CURRENT DOSE: 4856 cGy in 19 fx PLANNED DOSE: 5256 cGy in 21 fx SUBJECTIVE: She has mild pain in the left breast controlled well with occasional Tylenol. EXAM: KPS: 90 BP 108/64 Pulse 82 Temp 36.3 ?C (97.4 ?F) (Oral) Resp 20 SpO2 98% General Appearance: Alert and oriented. No acute distress. Left breast skin mild erythema. IMAGING/LAB RESULTS: None Treatment chart checked: Yes Patient treatment site reviewed and verified:Yes Port films reviewed and current:Yes Medications started: None ASSESSMENT/PLAN: Clinically stable. Toxicity within expected parameters. Continue radiation treatment as planned. Archana Briones MD PROGRESS Observed: 11/02/2017 Status: COMPLETED Source: [place] 8:51 AM [facility] REPOSITORY HNO ID: [id number] Author: Archana Briones Service: (none) Author Type: Physician Type: Progress Notes Filed: 11/02/2017 8:56 AM Note Text: Radiation Oncology - On Treatment Review (OTR) Note PATIENT NAME: Lorena Meléndez PATIENT DIAGNOSIS: Stage IA, T1bN0, invasive ductal carcinoma of the left breast s/p lumpectomy and sentinel node biopsy. It's ER positive (>95%, moderate), CT positive (>95%, moderate) and Her2/maegan 0 COURSE: adjuvant AREA TREATED: Left breast CURRENT DOSE: 3724 cGy in 14 fx PLANNED DOSE: 5256 cGy in 21 fx SUBJECTIVE: She is doing well without any specific new complaints. EXAM: KPS: 90 BP 110/69 Pulse 87 Temp 36.8 ?C (98.2 ?F) (Temporal Artery) Resp 20 SpO2 100% General Appearance: Alert and oriented. No acute distress. Left breast skin mild erythema. IMAGING/LAB RESULTS: None Treatment chart checked: Yes Patient treatment site reviewed and verified:Yes Port films reviewed and current:Yes Medications started: None ASSESSMENT/PLAN: Clinically stable. Toxicity within expected parameters. Continue radiation treatment as planned. Archana Briones MD CNOV Observed: 10/26/2017 Status: COMPLETED Source: [place] 9:00 AM [facility] REPOSITORY Office Visit (RADTWS) LORENA MELÉNDEZ ([id number]) 1970 F Date Time Provider Department 10/26/17 9:00 AM ARCHANA BRIONES [facility]ardWS During your visit today, we recorded the following information about you: Temperature Pulse Respiration Blood pressure 98 degrees 76/minute 19/minute 112/70 Last Period 05/26/17 Raoul Maurice, RN, RN 10/26/2017 8:55 AM Signed Radiation Therapy - Nursing Note (OTV) PATIENT NAME: Lorena Meléndez PATIENT October 26, 2017 [facility] FACILITY/LOCATION: [place] NURSING NOTE TYPE: BREAST Subjective Data See pain assessment Additional Data Do you want to see a Engineering Technical Analyst? No Status: Patient states there is no possibility she is at this time. Stress Scale: On a scale of 0 to 10, what number best describes how much distress you have experienced in the past week?(0 being no distress and 10 being extreme distress) 2 Social work notified: no Nursing Assessment Fatigue: increased fatigue over baseline but not altering normal activities Appetite: good Nutritional Intake: Regular oral intake. Weight Gain/Loss: No Ambulatory weight history: Last 6 Encounter Wt Readings: Date: Wt: 09/15/2017 62.6 kg (138 lb) 09/07/2017 61.5 kg (135 lb 8 oz) 10/19/2012 69.9 kg (154 lb) 12/04/2011 69.4 kg (153 lb) 11/20/2011 67.1 kg (148 lb) 11/05/2011 68.5 kg (151 lb) Nausea:None Vomiting: None Bowel Function: normal bowel movements Erythema/Hyperpigmentation:mild Desquamation:none Rash:none Skin Care: Aquaphor Skin Sensation: none itching and mild burning Focused Assessment BREAST: Lymphedema Assessment: Is the patient noting any swelling? No. SIGNED by: FELECIA Craft MD 10/26/2017 9:01 AM Signed Radiation Oncology - On Treatment Review (OTR) Note PATIENT NAME: Lorena Meléndez PATIENT DIAGNOSIS: Stage IA, T1bN0, invasive ductal carcinoma of the left breast s/p lumpectomy and sentinel node biopsy. It's ER positive (ANDgt;95%, moderate), CT positive (ANDgt;95%, moderate) and Her2/maegan 0 COURSE: adjuvant AREA TREATED: Left breast CURRENT DOSE: 2394 cGy in 9 fx PLANNED DOSE: 5256 cGy in 21 fx SUBJECTIVE: She has mild to moderate occasional tenderness over the left breast. She takes Ibuprofen as needed. EXAM: KPS: 90 BP 112/70 (BP Site: Right Arm, BP Position: Sitting, BP Cuff Size: Regular Adult) Pulse 76 Temp 36.7 ?C (98 ?F) (Temporal Artery) Resp 19 LMP 05/26/2017 SpO2 100% General Appearance: Alert and oriented. No acute distress. Left breast skin mild erythema. IMAGING/LAB RESULTS: None Treatment chart checked: Yes Patient treatment site reviewed and verified:Yes Port films reviewed and current:Yes Medications started: None ASSESSMENT/PLAN: Clinically stable. Toxicity within expected parameters. Continue radiation treatment as planned. Archana Briones MD Allergies As of Date: 10/26/2017 (No Known Allergies) Date Reviewed: 10/26/2017 Reviewed by: Raoul (Felecia) FELECIA Maurice - Fully Assessed Reason for Visit: OTV [Other] Primary Visit Diagnosis:Malignant neoplasm of upper-outer quadrant of left breast in female, estrogen receptor positive (HCC) [C50.412, Z17.0] Prescriptions as of 10/26/2017 Sig: MULTIVITAMIN TABLET Take 1 tablet by mouth once d* VALACYCLOVIR 500 MG TABLET Take 1 tablet by mouth once d* CLOTRIMAZOLE-BETAMETHASONE 1 * Apply 1 application to affect* NYSTATIN 100,000 UNIT/GRAM TO* Apply 1 application to affect* Problem List As Of Date 10/26/2017 Noted Resolved History of melanoma [Z85.820] INVALID FOR* More... Malignant neoplasm of upper-outer quadrant of l*INVALID FOR* Visit Notes: >> Raoul (Felecia) FELECIA Maurice Tujohanna Oct 26, 2017 8:53 AM Status: Signed Radiation Therapy - Nursing Note (OTV) PATIENT NAME: Lorena Meléndez PATIENT October 26, 2017 [facility] FACILITY/LOCATION: [facility] NURSING NOTE TYPE: BREAST Subjective Data See pain assessment Additional Data Do you want to see a Engineering Technical Analyst? No Status: Patient states there is no possibility she is at this time. Stress Scale: On a scale of 0 to 10, what number best describes how much distress you have experienced in the past week?(0 being no distress and 10 being extreme distress) 2 Social work notified: no Nursing Assessment Fatigue: increased fatigue over baseline but not altering normal activities Appetite: good Nutritional Intake: Regular oral intake. Weight Gain/Loss: No Ambulatory weight history: Last 6 Encounter Wt Readings: Date: Wt: 09/15/2017 62.6 kg (138 lb) 09/07/2017 61.5 kg (135 lb 8 oz) 10/19/2012 69.9 kg (154 lb) 12/04/2011 69.4 kg (153 lb) 11/20/2011 67.1 kg (148 lb) 11/05/2011 68.5 kg (151 lb) Nausea:None Vomiting: None Bowel Function: normal bowel movements Erythema/Hyperpigmentation:mild Desquamation:none Rash:none Skin Care: Aquaphor Skin Sensation: none itching and mild burning Focused Assessment BREAST: Lymphedema Assessment: Is the patient noting any swelling? No. SIGNED by: Raoul Maurice RN Encounter Status:Closed by ARCHANA BRIONES MD on 10/26/17 PROGRESS Observed: 10/26/2017 Status: COMPLETED Source: [place] 8:59 AM [facility] REPOSITORY HNO ID: [id number] Author: Archana Briones Service: (none) Author Type: Physician Type: Progress Notes Filed: 10/26/2017 9:01 AM Note Text: Radiation Oncology - On Treatment Review (OTR) Note PATIENT NAME: Lorena Meléndez PATIENT DIAGNOSIS: Stage IA, T1bN0, invasive ductal carcinoma of the left breast s/p lumpectomy and sentinel node biopsy. It's ER positive (>95%, moderate), CT positive (>95%, moderate) and Her2/maegan 0 COURSE: adjuvant AREA TREATED: Left breast CURRENT DOSE: 2394 cGy in 9 fx PLANNED DOSE: 5256 cGy in 21 fx SUBJECTIVE: She has mild to moderate occasional tenderness over the left breast. She takes Ibuprofen as needed. EXAM: KPS: 90 BP 112/70 (BP Site: Right Arm, BP Position: Sitting, BP Cuff Size: Regular Adult) Pulse 76 Temp 36.7 ?C (98 ?F) (Temporal Artery) Resp 19 LMP 05/26/2017 SpO2 100% General Appearance: Alert and oriented. No acute distress. Left breast skin mild erythema. IMAGING/LAB RESULTS: None Treatment chart checked: Yes Patient treatment site reviewed and verified:Yes Port films reviewed and current:Yes Medications started: None ASSESSMENT/PLAN: Clinically stable. Toxicity within expected parameters. Continue radiation treatment as planned. 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 pylori infection (Acute) Pancreatic cyst (Acute) Right inguinal hernia (Acute) Ulcer (Acute) Ventral hernia (Acute) Surgical History Atypical ductal hyperplasia of breast (Acute) H/O tubal ligation (Acute) S/P lumpectomy, left breast (Acute) Family History Mother Breast cancer Arthritis Father CAD (coronary artery disease) Cancer Social History Smoking Status: Current every day smoker alcohol intake: current alcohol intake frequency: holidays/special occasions only substance use type: does not use HPI HPI HPI: LORENA MELÉNDEZ, is a 46 F who presents to the office today for follow-up for left sentinel node biopsy. Victoria nodes were negative. Patient states that incision is healing well. Will refer to oncology. Exam Const General: cooperative, comfortable, no acute distress Chest Breast inspection: normal inspection of the breasts (Left breast incision healing well.), normal inspection of the axillae (Left axillary incision healing well.) Assessment AND Plan Problems 1. Invasive ductal carcinoma of left breast C50.912 Plan Victoria nodes were negative and previously her good margins with the excisional breast biopsy that showed invasive ductal carcinoma. Patient will be referred to oncology to request Dr. Colmenares. Follow-up in 6 months. Patient is agreeable to plan. Terri Roman M.D. Pager: [phone] [facility] [address] [place] [address], [address] [place] [address] Office: [phone] Plan Detail Follow Up 6 Months 10/20/17 1217 <Electronically signed by Terri Roman MD> Date Terri Roman MD Cosigner Signature: Date (if applicable) CC: Lauren Chiara HEATH Observed: 10/19/2017 Status: COMPLETED Source: [place] 9:00 AM [facility] REPOSITORY Office Visit (RADTWS) LORENA MELÉNDEZ ([id number]) 1970 F Date Time Provider Department 10/19/17 9:00 AM ARCHANA BRIONES RADTWS During your visit today, we recorded the following information about you: Temperature Pulse Respiration Blood pressure 97.6 degrees 71/minute 20/minute 110/70 Bret Steiner RN, RN 10/19/2017 8:42 AM Signed Radiation Therapy - Nursing Note (OTV) PATIENT NAME: Lorena Meléndez PATIENT October 19, 2017 [facility] FACILITY/LOCATION: [facility] NOTE TYPE: BREAST Subjective Data No c/o Additional Data Do you want to see a Engineering Technical Analyst? No Status: Patient states there is no possibility she is at this time. Stress Scale: On a scale of 0 to 10, what number best describes how much distress you have experienced in the past week?(0 being no distress and 10 being extreme distress) 2 Social work notified: no Nursing Assessment Fatigue: none Appetite: good Nutritional Intake: Regular oral intake. Weight Gain/Loss: No Ambulatory weight history: Last 6 Encounter Wt Readings: Date: Wt: 09/15/2017 62.6 kg (138 lb) 09/07/2017 61.5 kg (135 lb 8 oz) 10/19/2012 69.9 kg (154 lb) 12/04/2011 69.4 kg (153 lb) 11/20/2011 67.1 kg (148 lb) 11/05/2011 68.5 kg (151 lb) Nausea:None Vomiting: None Bowel Function: normal bowel movements Erythema/Hyperpigmentation:none Desquamation:none Rash:none Skin Care: Aquaphor Skin Sensation: mild burning Focused Assessment BREAST: Lymphedema Assessment: Is the patient noting any swelling? No. SIGNED by: FELECIA Rome MD 10/19/2017 9:07 AM Signed Radiation Oncology - On Treatment Review (OTR) Note PATIENT NAME: Lorena Meléndez PATIENT DIAGNOSIS: Stage IA, T1bN0, invasive ductal carcinoma of the left breast s/p lumpectomy and sentinel node biopsy. It's ER positive (ANDgt;95%, moderate), CT positive (ANDgt;95%, moderate) and Her2/maegan 0 COURSE: adjuvant AREA TREATED: Left breast CURRENT DOSE: 1064 cGy in 4 fx PLANNED DOSE: 5256 cGy in 21 fx SUBJECTIVE: She has mildly increased sensitivity in the nipple. EXAM: KPS: 90 BP 110/70 Pulse 71 Temp 36.4 ?C (97.6 ?F) (Temporal Artery) Resp 20 SpO2 97% General Appearance: Alert and oriented. No acute distress. Radiation dermatitis: No. Left breast skin intact. IMAGING/LAB RESULTS: None Treatment chart checked: Yes Patient treatment site reviewed and verified:Yes Port films reviewed and current:Yes Medications started: None ASSESSMENT/PLAN: Clinically stable. Toxicity within expected parameters. Continue radiation treatment as planned. Archana Briones MD Allergies As of Date: 10/19/2017 (No Known Allergies) Date Reviewed: 10/19/2017 Reviewed by: Bret (Felecia) FELECIA Steiner - Fully Assessed Reason for Visit: Radiotherapy On-treatment Visit [1722] Primary Visit Diagnosis:Malignant neoplasm of upper-outer quadrant of left breast in female, estrogen receptor positive (HCC) [C50.412, Z17.0] Prescriptions as of 10/19/2017 Sig: MULTIVITAMIN TABLET Take 1 tablet by mouth once d* VALACYCLOVIR 500 MG TABLET Take 1 tablet by mouth once d* CLOTRIMAZOLE-BETAMETHASONE 1 * Apply 1 application to affect* NYSTATIN 100,000 UNIT/GRAM TO* Apply 1 application to affect* Problem List As Of Date 10/19/2017 Noted Resolved History of melanoma [Z85.820] INVALID FOR* More... Malignant neoplasm of upper-outer quadrant of l*INVALID FOR* Visit Notes: >> FELECIA Rome Rn Oct 19, 2017 8:39 AM Status: Signed Radiation Therapy - Nursing Note (OTV) PATIENT NAME: Lorena Meléndez PATIENT October 19, 2017 [facility] FACILITY/LOCATION: [facility] NOTE TYPE: BREAST Subjective Data No c/o Additional Data Do you want to see a Engineering Technical Analyst? No Status: Patient states there is no possibility she is at this time. Stress Scale: On a scale of 0 to 10, what number best describes how much distress you have experienced in the past week?(0 being no distress and 10 being extreme distress) 2 Social work notified: no Nursing Assessment Fatigue: none Appetite: good Nutritional Intake: Regular oral intake. Weight Gain/Loss: No Ambulatory weight history: Last 6 Encounter Wt Readings: Date: Wt: 09/15/2017 62.6 kg (138 lb) 09/07/2017 61.5 kg (135 lb 8 oz) 10/19/2012 69.9 kg (154 lb) 12/04/2011 69.4 kg (153 lb) 11/20/2011 67.1 kg (148 lb) 11/05/2011 68.5 kg (151 lb) Nausea:None Vomiting: None Bowel Function: normal bowel movements Erythema/Hyperpigmentation:none Desquamation:none Rash:none Skin Care: Aquaphor Skin Sensation: mild burning Focused Assessment BREAST: Lymphedema Assessment: Is the patient noting any swelling? No. SIGNED by: Bret Steiner RN Encounter Status:Closed by ARCHANA BRIONES MD on 10/19/17 PROGRESS Observed: 10/19/2017 Status: COMPLETED Source: [place] 8:59 AM [facility] REPOSITORY O ID: [id number] Author: Archana Briones Service: (none) Author Type: Physician Type: Progress Notes Filed: 10/19/2017 9:07 AM Note Text: Radiation Oncology - On Treatment Review (OTR) Note PATIENT NAME: Lorena Meléndez PATIENT DIAGNOSIS: Stage IA, T1bN0, invasive ductal carcinoma of the left breast s/p lumpectomy and sentinel node biopsy. It's ER positive (>95%, moderate), CT positive (>95%, moderate) and Her2/maegan 0 COURSE: adjuvant AREA TREATED: Left breast CURRENT DOSE: 1064 cGy in 4 fx PLANNED DOSE: 5256 cGy in 21 fx SUBJECTIVE: She has mildly increased sensitivity in the nipple. EXAM: KPS: 90 BP 110/70 Pulse 71 Temp 36.4 ?C (97.6 ?F) (Temporal Artery) Resp 20 SpO2 97% General Appearance: Alert and oriented. No acute distress. Radiation dermatitis: No. Left breast skin intact. IMAGING/LAB RESULTS: None Treatment chart checked: Yes Patient treatment site reviewed and verified:Yes Port films reviewed and current:Yes Medications started: None ASSESSMENT/PLAN: Clinically stable. Toxicity within expected parameters. Continue radiation treatment as planned. Archana Briones MD [facility] CT NON-RADIOLOGY Observed: 10/11/2017 Status: F Source: [facility] 12:00 AM [facility] REPOSITORY [facility] - CT Images - Obtained Outside of Imaging [place] [id number] CNCNPATED Observed: 10/11/2017 Status: COMPLETED Source: [place] 12:00 AM [facility] REPOSITORY Education (LEAH) LORENA MELÉNEDZ ([id number]) 1970 F Date Time Provider Department 10/11/17 ARCHANA BRIONES Reason for Visit: radiation education [Other] Visit Notes: >> Raoul (Rn) FELECIA Maurice WedOct 11, 2017 11:00 AM Status: Signed Radiation Therapy - Patient Education Note PATIENT NAME: Lorena Meléndez PATIENT October 11, 2017 [facility] FACILITY/LOCATION: [facility] READINESS TO LEARN Cognitive Ability: Alert and oriented Motivation to learn: Eager Interested Family Support: Unable to assess - Family not present Instruction provide to: Patient Patient learns best by: Multiple Methods Factors effecting learning: None Physical limitations effecting learning: None LEARNING RESPONSE Diagnosis: Pt simulated today for radiation therapy to left breast. Education Topic/Teaching Points: Radiation therapy, Side effects and OTV: Method of instruction: Teach Back skin care Individual instruction Written instruction - handouts Verbal instruction Patient /Family response: Patient verbalized understanding of radiation treatments, side effects, OTV, and transportation. Follow-up plan: Patient instructed to call with any further issues Contact information given. Supplemental material: Informational handouts on Department phone list, Fatigue and [facility] instructions, XRT sheet and Aquaphor packet. 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 Was approved? pt did not receive tablet Signed by: Raoul Maurice RN During your visit today, we recorded the following information about you: Allergies As of Date: 10/11/2017 (No Known Allergies) Date Reviewed: 09/15/2017 Reviewed by: Raoul (Rn) FELECIA Maurice - Fully Assessed Prescriptions as of 10/11/2017 Sig: MULTIVITAMIN TABLET Take 1 tablet by mouth once d* VALACYCLOVIR 500 MG TABLET Take 1 tablet by mouth once d* CLOTRIMAZOLE-BETAMETHASONE 1 * Apply 1 application to affect* NYSTATIN 100,000 UNIT/GRAM TO* Apply 1 application to affect* Encounter Status:Closed by RAOUL MAURICE on 10/11/17 PROGRESS Observed: 10/11/2017 Status: COMPLETED Source: [place] 12:00 AM [facility] REPOSITORY HNO ID: [id number] Author: Archana Briones Service: (none) Author Type: Physician Type: Progress Notes Filed: 10/12/2017 12:34 AM Note Text: LORENA MELNÉDEZ [id number] 10/11/2017 [facility] Department of Radiation Oncology [facility] RADIATION ONCOLOGY SIMULATION NOTE DATE OF SIMULATION: 10/11/2017 MACHINE: Siemens Definition CT Simulator Diagnosis: Stage IA, T1bN0, invasive ductal carcinoma of the left breast s/p lumpectomy and sentinel node biopsy. It's ER positive (>95%, moderate), CT positive (>95%, moderate) and Her2/maegan 0. AREA:Lt Breast PATIENT POSITION: Supine. CONTRAST: None PROTOCOL: None BLOCKING: Custom blocking to be determined at treatment planning. FIXATION DEVICE: In order to achieve accurate and reproducible treatments, the patient is to be immobilized with orfit system PROCEDURE: A time-out was conducted and recorded by the therapist. Patient was simulated on the CT scanner for external beam radiation therapy. Treatment site was marked by the simulation therapist. ASSESSMENT/PLAN: Patient tolerated simulation procedure well. Treatments will be initiated after treatment planning. The patient is scheduled for a verification simulation on the treatment machine to ensure proper set-up and field arrangement is correct prior to the first treatment of primary and boost valladares if applicable. Electronically Signed Archana Briones M.D./valeria 10/11/20173:04 PM PROGRESS Observed: 10/11/2017 Status: COMPLETED Source: [place] 12:00 AM [facility] REPOSITORY HNO ID: [id number] Author: Archana Briones Service: (none) Author Type: Physician Type: Progress Notes Filed: 10/13/2017 12:35 AM Note Text: LORENA MELÉNDEZ [id number] 10/11/2017 [facility] Department of Radiation Oncology [facility] RADIATION ONCOLOGY TREATMENT PLANNING NOTE For reasons stated in the consult note, Lorena Meléndez is a candidate for radiation therapy. Based on review and interpretation of the relevant diagnostic studies together with the exam findings, Lorena Meléndez was simulated on 10/11/2017 at which time the target volume and/or requisite valladares were delineated, as indicated in the simulation note, to be treated according to the prescription. The treatment target and organs at risk were contoured on the simulation scan. After reviewing multiple treatment plans with dosimetry, the best plan was approved to deliver the prescribed course of radiation to the target area using 3D planning to allow for the best isodose distribution, treating to the 97.6% isodose line with 6 MV and 2 segmented valladares. Custom MLC asym jaws were the treatment device(s) used to shape/modify the beams. Limiting dose to normal tissue was confirmed upon review of the calculated dose volume histogram. A completed summary of this plan dated 10/12/17 incorporated herein by reference includes dose, ports, beam arrangements, energy, blocking, isodose distribution and DVH. Electronically Signed Archana Briones M.D. 10/12/201710:21 AM PROGRESS Observed: 09/15/2017 Status: COMPLETED Source: [place] 3:41 PM [facility] REPOSITORY HNO ID: [id number] Author: Archana Briones Service: (none) Author Type: Physician Type: Progress Notes Filed: 09/16/2017 9:15 AM Note Text: Radiation Oncology - New Patient/Consult Note PATIENT NAME: Lorena Meléndez PATIENT REQUESTING PROVIDER: Carlton Colmenares DO DIAGNOSIS: Stage IA, T1bN0, invasive ductal carcinoma of the left breast s/p lumpectomy and sentinel node biopsy. It's ER positive (>95%, moderate), CT positive (>95%, moderate) and Her2/maegan 0. HPI: 46 year old female who presents with above diagnosis, for an opinion regarding the role of radiation therapy in the management of the patient's disease. Final recommendations will be communicated back to the requesting physician by way of the shared medical record, or letter to requesting physician via [place] mail. 46 year old woman who had an abnormal screening mammogram on 05/20/17. It showed a focal cluster microcalcifications in the upper outer left breast. Stereotactic core biopsy of the left breast lesion on 06/03/17 showed intraductal hyperplasia with atypia. She underwent needle localization and excisional biopsy of the left breast lesion on 07/14/17. Pathology showed grade 1 invasive ductal carcinoma measuring 6mm x 6 mm x 5 mm with negative surgical margin. The closest margin was <0.1 cm from the posterior margin. There was no LVI. There was DCIS component comprising 10% of the tumor. It's ER positive (>95%, moderate), CT positive (>95%, moderate) and Her2/maegan 0. She underwent sentinel node biopsy on 08/26/17 and three sentinel nodes were negative for metastasis. I understand that genetic testing was done and she is negative for BRCA 1 or BRCA 2 mutation. Oncotype DX test result is pending. ALLERGIES No Known Allergies PAST MEDICAL HISTORY Diagnosis Date - Alopecia - Dysplasia of cervix, low grade (YOGESH 1) November 2007 Normal Pap smears since - Family history of breast cancer in mother Age 50 - Galactorrhea 2008 Resolved - H. 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 Menarche at 13. 1st at 28. Perimenopausal. h/o tubal ligation. Prior radiation therapy, collagen vascular disease, or inflammatory bowel disease: No status: Patient states there is no possibility she is at this time. Educated on risks of during treatment. PAST SURGICAL HISTORY Procedure Laterality Date - BREAST BIOPSY Left 06/03/2017 - PAST SURGICAL HISTORY OF 1995 Mole removed from back (Melanoma) - PAST SURGICAL HISTORY OF 07/14/2017 Left breast excisional biopsy - PAST SURGICAL HISTORY OF 08/26/2017 Left sentinel lymph node biopsy - SALPINGECTOMY Bilateral tubal ligation FAMILY HISTORY Problem Relation Age of Onset - Breast Cancer Mother 50 - Diabetes Mother - Hilario's thyroiditis [OTHER] Mother - Melanoma [OTHER] Father age 48 Social History Marital status: Spouse name: Years of education: Number of children: Social History Main Topics Smoking status: Current Every Day Smoker Packs/day: 1.50 Years: 20.00 Types: Cigarettes Smokeless status: Never Used Alcohol use: Yes Comment: rare Drug use: No Sexual activity: Yes COMPLETE REVIEW OF SYSTEMS: GENERAL: Hot flashes. HEENT: Negative for sudden vision or hearing changes. NECK: Negative for masses in the neck. RESPIRATORY: Negative for cough or shortness of breath. CARDIAC: Negative for chest pain, palpitations, murmurs, or syncopal episodes. GI: Negative for nausea, vomiting, diarrhea, constipation, blood per rectum, or melena. : Negative for dysuria, hematuria, urgency, frequency or incontinence. MUSCULOSKELETAL: Negative for limitations in movement, pain, or swelling. NEURO: Negative for dizziness, headache, weakness or numbness. HEMATOLOGIC: Negative for bleeding or easy bruising. SKIN: Negative for rashes or other skin changes. PHYSICAL EXAM: VS: BP 120/76 (BP Site: Right Arm, BP Position: Sitting, BP Cuff Size: Regular Adult) Pulse 71 Temp 36 ?C (96.8 ?F) (Oral) Resp 20 Wt 62.6 kg (138 lb) LMP 05/15/2017 SpO2 99% BMI 24.84 kg/m2 KPS: 100 General Appearance: Alert and oriented. No acute distress. HEENT: NCAT. Sclera anicteric. EOMI. Neck: Normal ROM. Chest: No respiratory distress. Lungs clear to auscultation bilaterally. Heart: Regular rate and rhythm. Abdomen: Soft. Nontender. Nondistended. Breasts: Recent surgical incision scars in the left upper outer breast and axilla healing well. There is no dominant mass, suspicious skin change or nipple discharge bilaterally. Musculoskeletal: No edema. Normal ROM in extremities. Neuro: No gross focal deficits. Skin: No rashes noted Lymphatics: No palpable cervical or supraclavicular or axillary adenopathy. RADIOLOGY/LABORATORY DATA: see HPI ASSESSMENT AND PLAN: 46 year old woman with Stage IA, T1bN0, invasive ductal carcinoma of the left breast s/p lumpectomy and sentinel node biopsy. It's ER positive (>95%, moderate), CT positive (>95%, moderate) and Her2/maegan 0. She has early stage breast cancer and had breast conserving surgery. I recommend radiation treatment to the left breast. She had Oncotype DX test result pending. I explained the rationale, benefits, alternative management options and potential complications of radiation treatment to the patient and she understands and agrees to proceed. It was explained and understood that other personnel such as radiation therapists, labor and delivery nurse, and physicists will participate in planning and delivery of radiation treatment. Permanent tattoo arrieta will be placed to aid with positioning for daily treatment and the patient consented. Thank you very much for allowing us to participate in her care. Signed by: Archana Briones MD cc: Lauren Lnua MD ([facility]) [address] [place] [address] Carlton Colmenares DO [address] [facility] [address] CNOV Observed: 09/15/2017 Status: COMPLETED Source: [place] 1:30 PM [facility] REPOSITORY Office Visit (RADTWS) LORENA MELÉNDEZ ([id number]) 1970 F Date Time Provider Department 09/15/17 1:30 PM ARCHANA BRIONES [facility] During your visit today, we recorded the following information about you: Temperature Pulse Respiration Blood pressure 96.8 degrees 71/minute 20/minute 120/76 Weight Last Period 62.6 kg 05/15/17 Raoul Maurice, RN, RN 09/15/2017 1:56 PM Signed Radiation Therapy - Nursing Note (Consult) PATIENT NAME: Lorena Meléndez PATIENT September 15, 2017 [facility] FACILITY/LOCATION: [place] Chief Complaint: consult Reason for visit: Consult. Referring physician: Internal provider Dr Colmenares Subjective Data: see pain assessment Additional Data Do you want to see a Engineering Technical Analyst? No Are you interested in information about fertility? No Sexual Activity: Female: preimenopausal Stress Scale: On a scale of 0 to 10, what number best describes how much distress you have experienced in the past week?(0 being no distress and 10 being extreme distress) 2 Social work notified: no Radiation therapy teaching initiated. Patient declined radiation video. [facility] external beam radiation therapy handout given. Department phone numbers given ANDamp; patient encouraged to verbalize questions. SIGNED by: FELECIA Craft MD 09/16/2017 9:15 AM Signed Radiation Oncology - New Patient/Consult Note PATIENT NAME: Lorena Meléndez PATIENT REQUESTING PROVIDER: Carlton Colmenares DO DIAGNOSIS: Stage IA, T1bN0, invasive ductal carcinoma of the left breast s/p lumpectomy and sentinel node biopsy. It's ER positive (ANDgt;95%, moderate), CT positive (ANDgt;95%, moderate) and Her2/maegan 0. HPI: 46 year old female who presents with above diagnosis, for an opinion regarding the role of radiation therapy in the management of the patient's disease. Final recommendations will be communicated back to the requesting physician by way of the shared medical record, or letter to requesting physician via [place] mail. 46 year old woman who had an abnormal screening mammogram on 05/20/17. It showed a focal cluster microcalcifications in the upper outer left breast. Stereotactic core biopsy of the left breast lesion on 06/03/17 showed intraductal hyperplasia with atypia. She underwent needle localization and excisional biopsy of the left breast lesion on 07/14/17. Pathology showed grade 1 invasive ductal carcinoma measuring 6mm x 6 mm x 5 mm with negative surgical margin. The closest margin was ANDlt;0.1 cm from the posterior margin. There was no LVI. There was DCIS component comprising 10% of the tumor. It's ER positive (ANDgt;95%, moderate), CT positive (ANDgt;95%, moderate) and Her2/maegan 0. She underwent sentinel node biopsy on 08/26/17 and three sentinel nodes were negative for metastasis. I understand that genetic testing was done and she is negative for BRCA 1 or BRCA 2 mutation. Oncotype DX test result is pending. ALLERGIES No Known Allergies PAST MEDICAL HISTORY Diagnosis Date - Alopecia - Dysplasia of cervix, low grade (YOGESH 1) November 2007 Normal Pap smears since - Family history of breast cancer in mother Age 50 - Galactorrhea 2008 Resolved - H. 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 Menarche at 13. 1st at 28. Perimenopausal. h/o tubal ligation. Prior radiation therapy, collagen vascular disease, or inflammatory bowel disease: No status: Patient states there is no possibility she is at this time. Educated on risks of during treatment. PAST SURGICAL HISTORY Procedure Laterality Date - BREAST BIOPSY Left 06/03/2017 - PAST SURGICAL HISTORY OF 1995 Mole removed from back (Melanoma) - PAST SURGICAL HISTORY OF 07/14/2017 Left breast excisional biopsy - PAST SURGICAL HISTORY OF 08/26/2017 Left sentinel lymph node biopsy - SALPINGECTOMY Bilateral tubal ligation FAMILY HISTORY Problem Relation Age of Onset - Breast Cancer Mother 50 - Diabetes Mother - Hilario's thyroiditis [OTHER] Mother - Melanoma [OTHER] Father age 48 Social History Marital status: Spouse name: Years of education: Number of children: Social History Main Topics Smoking status: Current Every Day Smoker Packs/day: 1.50 Years: 20.00 Types: Cigarettes Smokeless status: Never Used Alcohol use: Yes Comment: rare Drug use: No Sexual activity: Yes COMPLETE REVIEW OF SYSTEMS: GENERAL: Hot flashes. HEENT: Negative for sudden vision or hearing changes. NECK: Negative for masses in the neck. RESPIRATORY: Negative for cough or shortness of breath. CARDIAC: Negative for chest pain, palpitations, murmurs, or syncopal episodes. GI: Negative for nausea, vomiting, diarrhea, constipation, blood per rectum, or melena. : Negative for dysuria, hematuria, urgency, frequency or incontinence. MUSCULOSKELETAL: Negative for limitations in movement, pain, or swelling. NEURO: Negative for dizziness, headache, weakness or numbness. HEMATOLOGIC: Negative for bleeding or easy bruising. SKIN: Negative for rashes or other skin changes. PHYSICAL EXAM: VS: BP 120/76 (BP Site: Right Arm, BP Position: Sitting, BP Cuff Size: Regular Adult) Pulse 71 Temp 36 ?C (96.8 ?F) (Oral) Resp 20 Wt 62.6 kg (138 lb) LMP 05/15/2017 SpO2 99% BMI 24.84 kg/m2 KPS: 100 General Appearance: Alert and oriented. No acute distress. HEENT: NCAT. Sclera anicteric. EOMI. Neck: Normal ROM. Chest: No respiratory distress. Lungs clear to auscultation bilaterally. Heart: Regular rate and rhythm. Abdomen: Soft. Nontender. Nondistended. Breasts: Recent surgical incision scars in the left upper outer breast and axilla healing well. There is no dominant mass, suspicious skin change or nipple discharge bilaterally. Musculoskeletal: No edema. Normal ROM in extremities. Neuro: No gross focal deficits. Skin: No rashes noted Lymphatics: No palpable cervical or supraclavicular or axillary adenopathy. RADIOLOGY/LABORATORY DATA: see HPI ASSESSMENT AND PLAN: 46 year old woman with Stage IA, T1bN0, invasive ductal carcinoma of the left breast s/p lumpectomy and sentinel node biopsy. It's ER positive (ANDgt;95%, moderate), CT positive (ANDgt;95%, moderate) and Her2/maegan 0. She has early stage breast cancer and had breast conserving surgery. I recommend radiation treatment to the left breast. She had Oncotype DX test result pending. I explained the rationale, benefits, alternative management options and potential complications of radiation treatment to the patient and she understands and agrees to proceed. It was explained and understood that other personnel such as radiation therapists, labor and delivery nurse, and physicists will participate in planning and delivery of radiation treatment. Permanent tattoo arrieta will be placed to aid with positioning for daily treatment and the patient consented. Thank you very much for allowing us to participate in her care. Signed by: Archana Briones MD cc: Lauren Luna MD ([facility]) [address] [place] [address] Carlton Colmenares DO [address] [place] [address] Referring Provider: CARLTON COLMENARES [[id number]] Allergies As of Date: 09/15/2017 (No Known Allergies) Date Reviewed: 09/15/2017 Reviewed by: Raoul (Rn) FELECIA Maurice - Fully Assessed Reason for Visit: Consult [502] Primary Visit Diagnosis:Malignant neoplasm of upper-outer quadrant of left breast in female, estrogen receptor positive (HCC) [C50.412, Z17.0] Prescriptions as of 09/15/2017 Sig: MULTIVITAMIN TABLET Take 1 tablet by mouth once d* VALACYCLOVIR 500 MG TABLET Take 1 tablet by mouth once d* CLOTRIMAZOLE-BETAMETHASONE 1 * Apply 1 application to affect* NYSTATIN 100,000 UNIT/GRAM TO* Apply 1 application to affect* Problem List As Of Date 09/15/2017 Noted Resolved History of melanoma [Z85.820] INVALID FOR* More... Malignant neoplasm of upper-outer quadrant of l*INVALID FOR* Visit Notes: >> Raoul (Rn) FELECIA Maurice WedSep 15, 2017 1:55 PM Status: Signed Radiation Therapy - Nursing Note (Consult) PATIENT NAME: Lorena Meléndez PATIENT September 15, 2017 [facility] FACILITY/LOCATION: [place] Chief Complaint: consult Reason for visit: Consult. Referring physician: Internal provider Dr Colmenares Subjective Data: see pain assessment Additional Data Do you want to see a Engineering Technical Analyst? No Are you interested in information about fertility? No Sexual Activity: Female: preimenopausal Stress Scale: On a scale of 0 to 10, what number best describes how much distress you have experienced in the past week?(0 being no distress and 10 being extreme distress) 2 Social work notified: no Radiation therapy teaching initiated. Patient declined radiation video. [facility] external beam radiation therapy handout given. Department phone numbers given AND patient encouraged to verbalize questions. SIGNED by: Raoul Maurice RN Encounter Status:Closed by ARCHANA BRIONES MD on 09/16/17 ALLERGIES ALLERGIES DATE TYPE / CODE NAME / CODE REACTION SEVERITY SOURCE 08/29/2018 Drug adhesive Rash Unknown [facility] Allergy/416 tape/[id number]( [facility] 931081(SNOM RXNORM) Repository ED CT) Drug NO KNOWN [facility] Class/47479 ALLERGIES [place] 1003(SNOMED Repository CT) ENCOUNTERS ENCOUNTERS ADMIT/DISCHARGE ACCOUNT NUMBER ADMITTING ENCOUNTER LOCATION SOURCE CLASS 08/29/2018/08/29/20 [id number] [facility] [place] [facility]2018 [id number] Ambulatory [facility] ding:LAB Repository 07/27/2018 [id number] Ambulatory [facility] ding:LAB Repository 07/13/2018 [id number] Ambulatory [facility] ding:LAB Repository 07/13/2018/07/13/20 [id number] Ambulatory BMSBuilding: [place] 18 BMS.[facility] Repository 06/23/2018/06/24/20 [id number] Ambulatory [address] Repository 06/23/2018/06/24/20 [id number] Ambulatory [address] Repository 06/15/2018/06/15/20 [id number] Ambulatory [address] Repository 06/09/2018/06/09/20 [id number] Ambulatory BMSBuilding: [place] 18 BMS.Counts include 234 beds at the [facility] Repository 06/02/2018 [id number] Ambulatory [facility] ding:OPBI Repository 06/02/2018/06/02/20 [id number] Ambulatory BMSBuilding: [place] 18 BMS.Counts include 234 beds at the [facility] Repository 05/25/2018/05/25/20 [id number] Ambulatory BMSBuilding: [place] 18 BMS.Counts include 234 beds at the [facility] Repository 05/23/2018 [id number] Ambulatory [facility] ding:LABSPEC Repository 05/23/2018/05/23/20 [id number] Ambulatory BMSBuilding: [place] 18 BMS.Counts include 234 beds at the [facility] Repository 05/16/2018/05/16/20 [id number] Ambulatory BMSBuilding: [place] 18 BMS.Counts include 234 beds at the [facility] Repository 05/13/2018/05/13/20 [id number] Ambulatory BMSBuilding: [place] 18 BMS.Counts include 234 beds at the [facility] Repository 04/29/2018 [id number] Ambulatory BMSBuilding: [place] BMS.CF.Counts include 234 beds at the [facility] Repository 04/29/2018/04/29/20 [id number] Ambulatory [address] ding:SDC Repository 04/29/2018 [id number] Ambulatory BMSBuilding: [place] [facility] Repository 03/18/2018/06/25 [id number] [place]ulatory [place] [facility] [place] Repository 03/11/2018 [id number] Ambulatory [facility] Repository 03/10/2018/03/10/20 [id number] Ambulatory BMSBuilding: [place] 18 BMS.[facility] 03/04/2018 [id number] Ambulatory [facility] Repository 12/08/2017/12/10/19 [id number] Ambulatory [place] 18 [facility] [place] Repository 12/06/2017/12/08/19 [id number] Ambulatory [facility] [place] Repository 11/11/2017/11/12/19 [id number] Ambulatory [place] 18 [facility] [place] Repository 11/10/2017/11/10/19 [id number] Ambulatory [facility] 18 [facility] [place] Repository 11/09/2017/11/09/19 [id number] Ambulatory [facility] 18 [facility] [place] Repository 11/09/2017/11/09/19 [id number] Ambulatory [place] 18 [facility] [place] Repository 11/08/2017/11/11/19 [id number] Ambulatory [place] 18 [facility] [place] Repository 11/04/2017/11/04/19 [id number] Ambulatory [facility] [place] Repository 11/03/2017/11/03/19 [id number] [facility]ulatory [facility] [place] Repository 11/03/2017/11/03/19 [id number] [facility]ulatory [facility] [place] Repository 11/02/2017/11/02/19 [id number] [facility]ulatory [facility] [place] Repository 11/02/2017/11/02/19 [id number] [facility]ulatory [facility] [place] Repository 11/01/2017/11/01/19 [id number] [facility]ulatory [facility] [place] Repository 10/29/2017/10/29/19 [id number] [facility]ulatory [facility] [place] Repository 10/28/2017/10/28/19 [id number] [facility]ulatory [facility] [place] Repository 10/27/2017/10/29/19 [id number] [facility]ulatory [facility] [place] Repository 10/26/2017/10/26/19 [id number] Ambulatory [facility] [place] Repository 10/26/2017/10/26/19 [id number] Ambulatory [facility] 18 [facility] [place] Repository 10/25/2017/10/25/19 [id number] Ambulatory [facility] 18 [facility] [place] Repository 10/22/2017/10/22/19 [id number] Ambulatory [facility] 18 [facility] [place] Repository 10/21/2017/10/21/19 [id number] Ambulatory [facility] 18 [facility] [place] Repository 10/20/2017/10/20/19 [id number] Ambulatory [facility] 18 [facility] [place] Repository 10/19/2017/10/19/19 [id number] Ambulatory [facility] 18 [facility] [place] Repository 10/19/2017/10/19/19 [id number] Ambulatory [facility] [place] Repository 10/18/2017/10/18/19 [id number] Ambulatory [place] 18 [facility] [place] Repository 10/15/2017/10/15/19 [id number] Ambulatory [place] 18 [facility] [place] Repository 10/14/2017/10/14/19 [id number] Ambulatory [place] 18 [facility] [place] Repository 10/11/2017/10/11/19 [id number] Ambulatory [place] 18 [facility] [place] Repository 09/15/2017/09/15/20 [id number] Ambulatory [place] 17 [facility] [place] Repository 09/09/2017/09/09/20 [id number] Ambulatory BMSBuilding: [place] 17 BMS.Counts include 234 beds at the [facility] Repository PAYERS PAYERS ENCOUNTER GUARANTOR PAYER SUBSCRIBER SOURCE 08/29/2018 LORENA L Primary LORENA L [place] [id number] Insurance:ANTHEMPolic FREELANDDOB: [facility], y Number: [id number] [address]Wzs: [id number] Repository Date:7864-77-44NC BOX ([facility] [id number] [place] [address]KN: 08/29/2018 Secondary NOT GIVENUNK [place] Insurance:SELF PAY [facility] Number: Effective Repository Date:2018-08-29 08/23/2018 LORENA L Primary LORENA L [place] [id number] Insurance:ANTHEMPolic FREELANDDOB: [facility], y Number: [id number] [address]Cta: [id number] Repository Date:4856-40-49WX BOX () [place] [address]XV: 08/23/2018 Secondary NOT GIVENUNK [place] Insurance:SELF PAY [facility] Number: Effective Repository Date:2018-08-23 07/27/2018 LORENA L Primary LORENA L [place] [id number] Insurance:ANTHEMPolic FREELANDDOB: [facility] SHAILESH, y Number: [id number] [facility] [address]Bcj: [id number] Repository Date:3788-68-39IG BOX () [address], [place] [address]IS: 07/27/2018 Secondary NOT GIVENUNK [place] Insurance:SELF PAY [facility] Number: Effective Repository Date:2018-07-27 07/13/2018 LORENA L Primary LORENA L [place] [id number] Insurance:ANTHEMPolic FREELANDDOB: [facility], y Number: [id number] Health Center [address]Mjd: [id number] Repository Date:5571-43-48IM BOX () [place], [place] [address]QD: 07/13/2018 Secondary NOT GIVENUNK [place] Insurance:SELF PAY [facility] Number: Effective Repository Date:2018-07-13 07/13/2018 LORENA L Primary LORENA L [place] [id number] Insurance:ANTHEMPolic FREELANDDOB: [facility] SHAIELSH, y Number: [id number] Health Center [address]Hoy: [id number] Repository Date:3348-88-41SO [address]OX () [address], [place] [address]DI: 07/13/2018 Secondary NOT GIVENUNK [place] Insurance:SELF PAY [facility] Number: Effective Repository Date:2018-07-13 06/09/2018 LORENA L Primary LORENA L [place] [id number] Insurance:ANTHEMPolic FREELANDDOB: [facility] [employer] [employer], y Number: [id number] Health Center [address]Lnh: [id number] Repository Date:7779-71-46UT BOX () [address]GOKZBRDPAUL [place]ON [address]KT: 06/09/2018 Secondary NOT GIVENUNK [place] Insurance:SELF PAY [facility] Number: Effective Repository Date:2018-06-09 06/02/2018 LORENA L Primary LORENA L [place] [id number] Insurance:ANTHEMPolic FREELANDDOB: [facility] YANG CASH, y Number: [id number] Health Center [address]Gzh: [id number] Repository Date:0906-06-39LF BOX () [address]884[address]SVZDOLTPAUL SANON [id number]: 06/02/2018 Secondary NOT GIVENUNK Sherron Insurance:SELF PAY [facility] Number: Effective Repository Date:2018-05-03 06/02/2018 LORENA L Primary LORENA L Sherron [id number] Insurance:ANTHEMPolic FREELANDDOB: [facility] YANG CASH, y Number: [id number] Health Center [address]Ivr: [id number] Repository Date:2357-88-29NG [address] () [address]KN, [place] [address]NT: 06/02/2018 Secondary NOT GIVENUNK Curran Insurance:SELF PAY [facility] Number: Effective Repository Date:2018-06-02 05/25/2018 LORENA L Primary LORENA L Curran [id number] Insurance:ANTHEMPolic FREELANDDOB: Benny CASH, y Number: [id number] Health Center [address]Hjy: [id number] Repository Date:3782-01-55PH [address] () [address]ZWDJVMH, [place] [address]NY: 05/25/2018 Secondary NOT GIVENUNK Sherron Insurance:SELF PAY [facility] Number: Effective Repository Date:2018-05-25 05/23/2018 LORENA L Primary LORENA L Curran [id number] Insurance:ANTHEMPolic FREELANDDOB: [facility] YANG CASH, y Number: [id number] Health Center [address]Dfr: [id number] Repository Date:3843-60-03KT BOX () [address] [place] [address]ST: 05/23/2018 Secondary NOT GIVENUNK Sherron Insurance:SELF PAY [facility] Number: Effective Repository Date:2018-05-23 05/23/2018 LORENA L Primary LORENA L Curran [id number] Insurance:ANTHEMPolic FREELANDDOB: [facility], y Number: [id number] Health Center [address]Uaw: [id number] Repository Date:7477-30-04VI [address] () [id number] [place] [address]CN: 05/23/2018 Secondary NOT GIVENUNK Curran Insurance:SELF PAY [facility] Number: Effective Repository Date:2018-05-23 05/16/2018 LORENA L Primary LORENA L Sherron [id number] Insurance:ANTHEMPolic FREELANDDOB: [facility], y Number: [id number] Health Center [address]Bqm: [id number] Repository Date:0050-43-20FQ [address]OX () [address]JYEDBPB, [place] [address]QJ: 05/16/2018 Secondary NOT GIVENUNK Curran Insurance:SELF PAY [facility] Number: Effective Repository Date:2018-05-16 05/13/2018 LORENA L Primary LORENA L Sherron [id number] Insurance:ANTHEMPolic FREELANDDOB: [facility], y Number: [id number] Health Center [address]Vah: [id number] Repository Date:7438-98-37XH BOX () [address]YXLDSQJ, [place] [address]TZ: 05/13/2018 Secondary NOT GIVENUNK Sherron Insurance:SELF PAY [facility] Number: Effective Repository Date:2018-05-13 04/29/2018 LORENA L Primary LORENA L Sherron [id number] Insurance:ANTHEMPolic FREELANDDOB: [facility], y Number: [id number] Health Center [address]Nim: [id number] Repository Date:4229-97-80CA BOX () [address]IGRYIRMPAUL SANON [address]AU: 04/29/2018 Secondary NOT GIVENUNK Sherron Insurance:SELF PAY [facility] Number: Effective Repository Date:2018-04-29 04/29/2018 LORENA L Primary LORENA L Sherron [id number] Insurance:ANTHEMPolic FREELANDDOB: [facility], y Number: [id number] Health Center [address]Rjd: [id number] Repository Date:4191-47-77LZ [address]OX () [address]2682VPDDLLN, [place] [address]DF: 04/29/2018 Secondary NOT GIVENUNK Curran Insurance:SELF PAY [facility] Number: Effective Repository Date:2018-03-31 04/29/2018 LORENA L Primary LORENA L Curran [id number] Insurance:ANTHEMPolic FREELANDDOB: [facility], y Number: [id number] Health Center [address]Oxd: [id number] Repository Date:8301-29-70IV [address]OX () [address]68[address]XZHZNE, [place] [address]HJ: 04/29/2018 Secondary NOT GIVENUNK Sherron Insurance:SELF PAY [facility] Number: Effective Repository Date:2018-04-29 03/11/2018 Lorena Primary [facility] FreelandDOB: [facility] [id number] Repository Yang JacksonPolicy Number: [place] Effective Date: [address]Zkn: () 03/10/2018 LORENA L Primary LORENA L Sherron [id number] Insurance:ANTHEMPolic FREELANDDOB: [facility] YANG CASH, y Number: [id number] [address]Cne: [id number] Repository Date:1256-30-12TU [address] () [id number] [place] [address]FJ: 03/10/2018 Secondary NOT GIVENUNK Sherron Insurance:SELF PAY [facility] Number: Effective Repository Date:2018-03-10 03/04/2018 Lorena Primary [facility]na [facility] [facility] [id number] Repository Yang [facility]: [place] Effective Date: [address]Eqe: () 09/09/2017 LORENA L Primary LORENA L Curran [id number] Insurance:ANTHEMPolic FREELANDDOB: [facility] YANG CASH, y Number: [id number] [address]Pcz: [id number] Repository Date:3694-59-99FT BOX () [address] [place] [address]KF: 09/09/2017 Secondary NOT GIVENUNK Sherron Insurance:SELF PAY [facility] Number: Effective Repository Date:2017-09-02
== END ==
PROVIDERS: Family Provider Family Medicine; PCP Family Medicine; Referring Provider Nurse Practitioner; Visit Provider Nurse Practitioner
DX: E07.9 Disorder of thyroid, unspecified (principal)
CPT/HCPCS: 84439; 84443; 84481

== ENCOUNTER → 2019-04-12 | Outpatient (CLI) | payer BC, SELFPAY ==
[2018-08-29 16:00] VITALS: BMI 23.7
--- NOTE | 2019-04-12 09:28 | BI_ITS ---
MAMMOGRAPHY - UNILATERAL DIAGNOSTIC: LEFT BREAST REASON FOR EXAM: Female, 48 years old. 2 week history of left breast lump. PERTINENT HISTORY: Personal history of breast cancer. Prior left lumpectomy and radiation treatment. Mother with breast cancer. TECHNIQUE: Digital unilateral breast blanca (3D mammographic acquisition) in the CC and MLO projections. 2-D mediolateral oblique (MLO) and craniocaudad (CC) views of both breasts were obtained. CAD: Full Field Digital Mammography with Computer Added Detection was performed. COMPARISON: Comparison is made with prior study dated June 02, 2018 and May 20, 2017. FINDINGS: Breast Composition: The breasts are heterogeneously dense, which may obscure small masses. There are no dominant masses or suspicious calcifications. The patient is status post lumpectomy in the upper lateral aspect of the breast. Stable postoperative changes are seen with no skin thickening.. At this time, there is evidence of coarse calcifications at the biopsy site suggestive of postoperative necrosis. No other significant abnormalities are identified. BI/DIAG MAMM W/CAD, UNILAT IMPRESSION: Status post lumpectomy in the upper lateral aspect of the left breast with resultant post lumpectomy changes. Since prior study, there is evidence of calcifications at the operative site suggestive of a postoperative necrosis. Correlation with ultrasound is recommended. ASSESSMENT CATEGORY: BIRADS Category 0: Incomplete. Need additional imaging evaluation. A letter regarding these results will be sent to the patient by the facility within 30 days. Approximately 10% of breast cancers are not detected by mammography. A normal mammogram should not delay biopsy of a clinically suspicious abnormality. Electronically Signed: Xavi Solano, at 10:24 EDT , Service support ,
--- NOTE | 2019-04-12 09:28 | US_ITS ---
STUDY: ULTRASOUND BREAST - LEFT REASON FOR EXAM: Female, 48 years old. Palpable lump left breast. TECHNIQUE: Axial and longitudinal images of the LEFT breast were performed with a high resolution ultrasound transducer. COMPARISON: Comparison is made with prior mammogram done earlier in the day. FINDINGS: LEFT Breast: At the 11:00 position of the breast, there is a 9 mm x 6 mm x 4 mm cyst with an echogenic rim. At the 12:00 position of the breast and one sinus on the nipple, there is similar appearing nodule measuring 4 mm x 4 mm x 3 mm an echogenic rim. At the 8:00 position of the breast at 3 cm from the nipple, there is an 8 mm x 7 mm x 7 mm well-defined hypoechoic nodule with echogenic rim suggestive of calcification. A biopsy of this nodular density is recommended. US/Breast Limited Unilateral IMPRESSION: 2 cysts are seen at the 11 and 12:00 position of the breast as described. 8 mm x 7 mm x 7 mm hypoechoic nodule with peripheral calcification is seen at the 8:00 position of the breast at 3 cm from the nipple. A biopsy recommended. ASSESSMENT CATEGORY: BIRADS Category 4: Suspicious - Biopsy Should Be Considered. A letter regarding these results will be sent to the patient by the facility within 30 days. Electronically Signed: Xavi Solano, at 10:51 EDT , Service support ,
== END | disposition home or self-care (01) ==
PROVIDERS: Family Provider Family Medicine; PCP Family Medicine
DX: C50.412 Malignant neoplasm of upper-outer quadrant of left female breast (principal); N63.22 Unspecified lump in the left breast, upper inner quadrant; Z17.0 Estrogen receptor positive status [ER+]
CPT/HCPCS: 76642; 77061; 77065; G0279

== ENCOUNTER → 2019-04-21 | Outpatient (CLI) | payer BC, SELFPAY ==
--- NOTE | 2019-04-21 13:15 | BRBX_PTH ---
PATIENT: LORENA NUR [facility] U#:[id number] AGE/SX: 48/F ROOM: RE04/21/[address]: Dr. Terri Roman MD : 1970 BED: DIS: 04/21/2019 SPEC #: [id number] RECD: 04/21/19 17:06 STATUS: RUDOLPH KAREN #: [id number] JONAH: 04/21/19 13:[address]: Terri Roman DEPT: SURGICAL PATHOLOGY RECD BY: Jose Hernandez ENTERED: 04/24/19 09:35 SP TYPE: BREAST BX OTHR DR: Dr. Lauren Luna MD Tissues: Left breast, NOS Procedures: Surgery Specimen Level IV HEADER OPERATION: Ultrasound-guided left breast needle core biopsy PRE-OP DIAGNOSIS: Left breast mass N63.20 TISSUE SUBMITTED: Left breast needle core biopsy tissue ISCHEMIC TIME: 30 seconds FIXATION TIME: 78.5 hours MICROSCOPIC DIAGNOSIS Left breast, ultrasound-guided needle core biopsy: A fragment of benign breast tissue with fibrosis, chronic inflammation and dystrophic calcification. Negative for atypjia or malignancy. See Comment. Mazin 04/25/19 COMMENT Correlation with clinical, radiologic findings and appropriate follow up are necessary. Please make reference to previous specimen [id number] left breast, needle localization biopsy with diagnosis of invasive ductal carcinoma and ductal carcinoma in situ. MICROSCOPIC DESCRIPTION Slides are reviewed. GROSS DESCRIPTION Received in fixative is one container labeled with the patient's name and designated left breast biopsy. The specimen consists of one elongated fragment of gonzales-yellow fibroadipose tissue measuring 1 cm in length and 0.1 cm in diameter. The entire specimen is submitted in one cassette. / STEPHANIE:adolph 04/24/19 TC: 5 CPT: 55106
[2019-04-21 13:23] VITALS: BMI 23.7
== END | disposition home or self-care (01) ==
LOC: LABSPEC 04-22 07:27
PROVIDERS: Family Provider Family Medicine; PCP Family Medicine; Referring Provider Surgery; Visit Provider Surgery
DX: N63.20 Unspecified lump in the left breast, unspecified quadrant (principal)
CPT/HCPCS: 88305

== ENCOUNTER → 2019-06-26 | Outpatient (CLI) | payer OTHER, SELFPAY ==
[2018-08-29 16:00] VITALS: BMI 23.7
[2019-04-21 13:23] VITALS: BMI 23.7
--- NOTE | 2019-06-26 10:25 | BI_ITS ---
MAMMOGRAPHY - BILATERAL SCREENING REASON FOR EXAM: Female, 48 years old. Routine annual screening examination. PERTINENT HISTORY: Personal history of breast cancer. Prior left lumpectomy with radiation treatment. Mother with breast cancer. TECHNIQUE: Digital bilateral breast annalee (3D mammographic acquisition) in the CC and MLO projections. 2-D mediolateral oblique (MLO) and craniocaudad (CC) views of both breasts were obtained. CAD: Full Field Digital Mammography with Computer Added Detection was performed. COMPARISON: Comparison is made with prior study June 02, 2018 and May 20, 2017. Comparison is also made with prior mammogram dated April 12, 2019. FINDINGS: Breast Composition: The breasts are heterogeneously dense, which may obscure small masses. There are no dominant masses or suspicious calcifications. Stable architectural deformity in the upper lateral aspect of the left breast in keeping with prior lumpectomy. Surgical clips are once again seen in the left axillary region. Postoperative calcifications are seen in the left breast. No other significant abnormalities are identified. There has been no significant change since the prior study. BI/SCREEN MAMM (CAD) W/ANNALEE BILAT IMPRESSION: Stable bilateral screening mammogram. Yearly follow-up mammogram recommended. (A) ASSESSMENT CATEGORY: BIRADS Category 2: Benign. A letter regarding these results will be sent to the patient by the facility within 30 days. Approximately 10% of breast cancers are not detected by mammography. A normal mammogram should not delay biopsy of a clinically suspicious abnormality. [id number] Electronically Signed: Xavi Solano, at 12:41 EDT , Service support ,
== END | disposition home or self-care (01) ==
LOC: OPBI 10:22
PROVIDERS: Family Provider Family Medicine; PCP Family Medicine; Referring Provider Nurse Practitioner; Visit Provider Nurse Practitioner
DX: Z12.31 Encounter for screening mammogram for malignant neoplasm of breast (principal); C50.412 Malignant neoplasm of upper-outer quadrant of left female breast; Z17.0 Estrogen receptor positive status [ER+]
CPT/HCPCS: 77063; 77067

== ENCOUNTER → 2019-12-12 | Outpatient (CLI) | payer OTHER, SELFPAY ==
[2019-04-21 13:23] VITALS: BMI 23.7
--- NOTE | 2019-12-12 09:45 | VDLE_ITS ---
Reason For Study: swelling RIGHT LEFT GSV is normal. GSV is normal. CFV is compressible, spontaneous, phasic, CFV is compressible, spontaneous, phasic, competent and demonstrates normal competent, and demonstrates normal augmentation. augmentation. FV is compressible, spontaneous, phasic, FV is compressible, spontaneous, phasic, competent and demonstrates normal competent and demonstrates normal augmentation. augmentation. POP V is compressible, spontaneous, phasic, POP V is compressible, spontaneous, phasic, competent and demonstrates normal competent and demonstrates normal augmentation. augmentation. T/P Trunk is compressible. T/P Trunk is compressible. PTV is compressible. PTV is compressible. RT PerV is compressible. LT PerV is compressible. Procedure Exam performed in department. The exam was diagnostic. A preliminary report was called and/or faxed to Dr. Colmenares's office. Interpretation Summary Deep veins of the lower extremities are bilaterally patent and compressible segmentally. There is no evidence of deep vein thrombosis on either side. Valvular competence appears intact within the proximal deep venous systems bilaterally. The great saphenous veins appear bilaterally patent and compressible segmentally. Ordering Physician: Carlton Colmenares Performed By: Regan Vidal RVT
== END | disposition home or self-care (01) ==
LOC: CVS 09:41
PROVIDERS: PCP Family Medicine; Referring Provider Internal Medicine Hematology & Oncology; Visit Provider Internal Medicine Hematology & Oncology
DX: M79.89 Other specified soft tissue disorders (principal); C50.412 Malignant neoplasm of upper-outer quadrant of left female breast; Z17.0 Estrogen receptor positive status [ER+]
CPT/HCPCS: 93970

== ENCOUNTER → 2020-06-27 | Outpatient (CLI) | payer MEDICAID, SELFPAY ==
[2019-04-21 13:23] VITALS: BMI 23.7
--- NOTE | 2020-06-27 10:22 | BI_ITS ---
MAMMOGRAPHY - BILATERAL SCREENING REASON FOR EXAM: Female, 49 years old. Routine annual screening examination. PERTINENT HISTORY: Personal history of breast cancer. Prior left lumpectomy and radiation therapy. Prior left breast biopsy. Mother with breast cancer. TECHNIQUE: Digital bilateral breast annalee (3D mammographic acquisition) in the CC and MLO projections. 2-D mediolateral oblique (MLO) and craniocaudad (CC) views of both breasts were obtained. CAD: Full Field Digital Mammography with Computer Added Detection was performed. COMPARISON: Comparison is made with prior study dated 06/26/2019 and 06/02/2018. FINDINGS: Breast Composition: The breasts are heterogeneously dense, which may obscure small masses. There are no dominant masses or suspicious calcifications. Stable architectural distortion in the upper lateral aspect of the left breast incomplete with history of prior lumpectomy. Surgical clips are once again seen in the left axillary region. Postoperative calcifications seen in the inferior medial aspect of the left No other significant abnormalities are identified. There has been no significant change since the prior study. BI/SCREEN MAMM (CAD) W/ANNALEE BILAT IMPRESSION: Stable bilateral screening mammogram. Yearly follow-up mammogram recommended. (A) ASSESSMENT CATEGORY: BIRADS Category 2: Benign. A letter regarding these results will be sent to the patient by the facility within 30 days. Approximately 10% of breast cancers are not detected by mammography. A normal mammogram should not delay biopsy of a clinically suspicious abnormality. [id number] Electronically Signed: Xavi Solano, at 12:09 EDT , Service support ,
== END | disposition home or self-care (01) ==
LOC: OPBI 10:20
PROVIDERS: PCP Nurse Practitioner Family; Referring Provider Nurse Practitioner; Visit Provider Nurse Practitioner
DX: C50.412 Malignant neoplasm of upper-outer quadrant of left female breast (principal); Z12.31 Encounter for screening mammogram for malignant neoplasm of breast; Z17.0 Estrogen receptor positive status [ER+]
CPT/HCPCS: 77063; 77067

== ENCOUNTER 2023-02-23 08:51 | Day surgery (SDC) | payer MEDICAID, SELFPAY ==
[2023-02-23] VITALS (8 sets, daily range): BP systolic 100–119; BP diastolic 68–82; PULSE 75–82; RESP 16; TEMP 37.1–37.7; O2SAT 90–98; BMI 23.8
--- NOTE | 2023-02-23 | FORE_PTH ---
PATIENT: LORENA [place]UR [place] [facility] [place][id number] AGE/SX: 52/F ROOM: RE02/23/[address]: Dr. Terri Roman MD : 1970 BED: DIS: 02/23/2023 SPEC #: [id number] RECD: 02/23/23 15:26 STATUS: RUDOLPH KAREN #: [id number] JONAH: 02/23/23 00:[address]: Terri Roman DEPT: SURGICAL PATHOLOGY RECD BY: Pablo Lyles ENTERED: 02/24/23 09:34 SP TYPE: FOREIGN B HARDIK DR: Digna Castillo, IMELDA Tissues: FOREIGN BODY Procedures: Surgery Specimen Level III HEADER OPERATION: Laparoscopic recurrent ventral hernia with mesh PRE-OP DIAGNOSIS: Recurrent ventral hernia with incarceration TISSUE SUBMITTED: Mesh MICROSCOPIC DIAGNOSIS Mesh: A piece of mesh with attached fibroadipose and fibroconnective tissue with chronic inflammation and foreign body giant cell reaction. SJ:adolph 02/25/2023 MICROSCOPIC DESCRIPTION Slides are reviewed. GROSS DESCRIPTION Received in fixative is one container labeled with the patient's name and designated mesh. The specimen consists of a piece of mesh with attached adipose tissue measuring 4.5 x 3.5 x 1.0 cm. Brake Coupler Dinkey tissue adherent to the mesh is submitted in one cassette. / STEPHANIE:adolph 02/24/2023 TC:3 CPT: 07725
--- NOTE | 2023-02-23 09:00 | RAD_ITS ---
ACR Level 3 findings have been noted. An addendum which confirms receipt of the report will follow. STUDY: X-RAY CHEST REASON FOR EXAM: Female, 52 years old. PREOP TECHNIQUE: Frontal and lateral views of the chest. COMPARISON: None. FINDINGS: There is hyperexpansion of lungs consistent with COPD. Prominent abnormalities seen in the lower right lung including a hemispheric mass in the right lower lobe measuring approximately 5.1 cm in size and highly suspicious for neoplasm. CT with contrast is recommended. In addition, there is pleural thickening and/or effusion and pleural-parenchymal density projecting in the lower right lung. Left lung is clear. Normal size heart. Normal mediastinum and melissa. Normal visualized pulmonary arteries. Normal visualized aortic arch and descending thoracic aorta. Normal visualized thoracic spine. Normal visualized ribs, clavicles, and shoulders. There is no demonstrated abnormality of the visualized soft tissue structures of the upper abdomen. RAD/Chest PA and Lateral IMPRESSION: Probable mass in the lower right lung. CT with contrast is indicated. Electronically Signed: Gage Espinosa MD at 22:50 EDT ,
[2023-02-23 09:47] LABS: Hematocrit 49.9 % (37-47); Hemoglobin 16.5 g/dL (12.0-15.0); Mean Corp Hgb Conc 33.1 g/dL (32-36); Mean Corpuscular Hgb 31.6 pg (27.0-32.0); Mean Corpuscular Volume 95.6 fL (81-99); Mean Platelet Vol. 9.8 fl (6.2-12.0); Platelet Count 293 K/mm3 (150-450); RBC Distribution Width CV 13.7 % (11.6-14.6); RBC Distribution Width SD 48.6 fl (35.1-43.9); Red Blood Count 5.22 M/mm3 (4.2-5.4)
[2023-02-23] MEDS: Lactated Ringers 1,000 ML 15 ML IV (09:53)
--- NOTE | 2023-02-23 10:17 | PCM.HP.BLA ---
History and Physical Date of Admission: 02/23/23 Date of Service:? 02/08/23 MR#: [id number] Acct: [id number] Name:LORENA CLEVELAND Rep #: [id number] : 1970 ? ? Provider: Dr. Terri Roman MD Age/Sex:? 52/F ? ? Location: [facility] Status: Signed Intake Vital Signs ? 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 Terri Roman MD) H. pylori infection Invasive ductal carcinoma of left breast Pancreatic cyst Right inguinal hernia Thyroid dysfunction Ulcer Ventral hernia Surgical History? Atypical ductal hyperplasia of breast H/O tubal ligation History of right inguinal hernia repair (~04/2018) S/P lumpectomy, left breast Family History? Mother Breast cancer ArthritisFather CAD (coronary artery disease) Cancer Social History? second hand exposure:? Yes alcohol intake:? current alcohol intake frequency: holidays/special occasions only substance use type:? does not use caffeine:? Yes what type of physical activity do you participate in:? none frequency:? does not exercise seatbelt use:? always HPI HPI HPI: 52-year-old female presents due to recurrent ventral hernia.? Patient is well-known to me as in 2018.? Right inguinal hernia as well as ventral hernia with mesh for 1 area and primarily for another smaller ventral hernia.? Patient states she noticed that last month started having abdominal pain and noticed a bulge at that area again she complains of increased bloating with eating.? CT abdomen pelvis was done and shows a recurrent hernia appears to be at the same location mesh located inferior to the hernia along the abdominal wall.? ROS General General: Yes breast cancer; No weight change, appetite, fatigue or colon cancer HEENT HEENT: Yes swollen glands; No difficulty swallowing, eye injury, eye surgery or hoarseness Endo Endocrine: Yes thyroid disease; No diabetes mellitus, thyroid cancer, Hair loss, heat intolerance or cold intolerance Skin Skin: No rash or changing moles Musc Musculoskeletal: No back problems, arthritis, rheumatoid arthritis, gout or joint pain Cardio Cardiovascular: No murmur, pacemaker, heart disease, atrial fibrillation, high blood pressure, heart attack, heart stent, palpitations, shortness of breat with exertion or chest pain Psych Psychiatric: No depression, anxiety or hearing voices Resp Respiratory: No shortness of breath, No sleep apnea, No cough, No COPD, No asthma, No emphysema and No wheezing Gastro Gastrointestinal: Yes abdominal pain, No nausea or vomiting, No diarrhea, Yes constipation, No blood in stool, No acid reflux, No hemorrhoids, No ulcers, No gallbladder problem and No black,tarry stools Tate Hematologic: No blood thinners, No blood disorders, No bleeding, No anemia and No blood clots Neuro Neurologic: Yes numbness and Yes tingling Exam Const General: cooperative, healthy appearing, comfortable and no acute distress Resp Effort & Inspection: normal respiratory effort Cardio Rate: regular rate GI Inspection: non-distended Palpation: no guarding and hernia (Recurrent incarcerated ventral, mild tenderness on palpation) Skin General: no rashes or lesions noted Assessment and Plan Assessment and Plan (1) Recurrent ventral hernia with incarceration: ?Status:?Acute Plan We will plan for for open/laparoscopic repair of recurrent incarcerated ventral hernia in removal of previous mesh.? Discussed the procedure with the patient including the risk of bleeding, infection, recurrence and anesthesia.? Patient no further questions time and agreeable to proceed to schedule surgery. Terri Roman M.D. Pager: [phone] [facility] [address] [place] [address], [facility], [address] [place] [address] Office: [phone] Coding Level of Care Code Off vis,new,level 4 Diagnoses Recurrent ventral hernia with incarceration? K43.0 02/10/23 1408 <Electronically signed by Terri Roman MD> Date Terri Roman MD
[2023-02-23 10:26] LABS: AST(SGOT) 8 U/L (15-37); Alanine Aminotransfer ALT/SGPT 15 U/L (13-56); Albumin, Serum 3.5 g/dL (3.2-5.0); Alkaline Phosphatase 104 U/L (45-117); Bilirubin, Direct 0.11 mg/dL (0.00-0.30); Globulin 4.3 g/dL (2.2-4.2); Protein, Total 7.8 g/dL (6.4-8.2); Thyroid Stim Hormone (TSH) 0.96 uIU/mL (0.358-3.74)
[2023-02-23 10:48] LABS: Prothrombin Time (Protime)PT. 13.6 SECONDS (11.7-14.9)
[2023-02-23 10:49] LABS: Partial Thromboplast Time 26.2 Seconds (24.1-36.2)
[2023-02-23] MEDS: Cefazolin 2 GM in 0.9% Normal Saline 100 ML IV (11:05)
[2023-02-23] MEDS: Bupivacaine Mpf 0.5% 30 ML VIAL (11:24)
--- NOTE | 2023-02-23 12:41 | PCM.OPRPT ---
Report of Operation Date of Procedure: 02/23/23 Pre-Operative Diagnosis: Incarcerated recurrent ventral hernia Post-Operative Diagnosis: Same Surgery/Procedure Performed:: Open/laparoscopic repair of of recurrent incarcerated ventral hernia and removal of previous mesh. Surgeon: Terri Roman records management engineer: Tawanna Gamble Type of Anesthesia: General/Supplemental Anesthesiologist: Kaz Blackburn Special Medications: Ancef 2 g IV x1 Specimen's removed: Previous mesh Estimated Blood Loss (mL): 10 cc Description of Procedure: Patient was brought into the room placed supine on the operating table.? Correct patient, procedure, site, positioning, special, was verified prior to procedure.? General anesthesia was induced.? The abdomen was prepped draped in usual sterile fashion. Previous supraumbilical incision was incised with a 15 blade scalpel.? This was deepened to the fascia with electrocautery.? Incarcerated umbilical fat was reduced into the abdomen. Previous ST hernia patch was removed. The fascia around the hernia defect was cleared and the hernia defect measured 2 cm x 2 cm.? Two 0 Prolene [id number] was used to close the defect, after Joseph trocar was placed through the defect and abdomen insufflated with CO2 to a pressure of 12 to 15 mmHg.? Patient tolerated insufflation well.? Additional 5 mm trocars were placed in the right upper quadrant and right lower abdomen under direct visualization.? Left indirect inguinal hernia was also seen on examination of the abdomen. Electrocautery was used to further divide the falciform to allow the mesh to lay flat. Ventralight ST 11.4 cm diameter echo positioning system was chosen.? This was placed into the abdomen through the Joseph trocar.? Abdominal insufflation pressures were reduced to 10 mmHg.? Positioning system was insufflated and mesh was laying flat.? The mesh was secured using a secure strap tacker and the echo system was removed completely through a 5 mm trocar site.? Additional tacks were placed. The midline incision was closed with 3-0 Vicryl subdermal interrupted sutures and the skin was closed with interrupted 4-0 Monocryl sutures.? 5 mm trocar sites were also closed at the skin with 4-0 Monocryl.? Steri-Strips and OpSite were placed.? Patient was extubated. Patient tolerated procedure well and was taken to the postanesthesia care unit in stable condition. Grafts/Implants Used: Ventralight ST 11.4 cm diameter ref [id number] Complications none
--- NOTE | 2023-02-23 12:50 | DCINST_ITS ---
Discharge Instructions Diet Discharge Diet: Light diet - advance as tolerated Activity Discharge Activity: May Not Drive (while taking narcotic pain medications.) May shower in (days): 1 Lifting Restrictions: no lifting >20 lbs x 2 wks, no strenuous exercise for 4 wks Dressing / Incision Call your doctor if your incision/area has: Continuous Slow Oozing, Sudden Increased Bleeding, Increased Pain/ Swelling, Increased Redness, Foul Smelling Discharge and Swelling at the incision site Call your doctor if you observe: Fever of 101 or Higher Remove Dressing in: 2 days Cleanse incision/area with: Soap & Water Additional Dressing/Incision Instructions:: Steri-Strips will fall off in 7 to 10 days, if they do not fall off okay to remove after 10 days. Follow Up Care Please Follow Up With: Terri Roman MD When: Call the office for a follow-up appointment 2 weeks; after 5 PM and on the weekends call [phone] with any concerns. Test Results: Test results from this visit will be discussed in further detail at your follow- up appointment, if applicable. Discharge Plan Admission Attending Provider: Terri Roman Primary Care Provider: Digna Castillo NP Discharge Orders/Prescriptions Prescriptions: New oxycodone-acetaminophen 5-325 mg tablet 1 - 2 tab PO Q6H PRN (Reason: pain) 3 Days Qty: 14 0RF Continued methimazole 5 mg tablet 5 mg PO DAILY anastrozole 1 mg Tablet 1 mg PO QHS Referrals / Follow Up: Digna Castillo NP, INFECTION CONTROL NURSE-C [Primary Care Provider] - Disposition Disposition (needs filled in before D/C Order can be placed): Home, Self Care
== END 2023-02-23 15:01 | disposition home or self-care (01) ==
LOC: SDC 08:51 → AC 09:08
PROVIDERS: Anesthesiology; PCP Nurse Practitioner Family; Referring Provider Surgery; Visit Provider Surgery
PROC: 0WQF4ZZ Repair Abdominal Wall, Percutaneous Endoscopic Approach (ICD-10-PCS; CPT 49616; principal; 2023-02-23 10:40)
DX: K43.0 Incisional hernia with obstruction, without gangrene (principal); K40.90 Unilateral inguinal hernia, without obstruction or gangrene, not specified as recurrent; E07.9 Disorder of thyroid, unspecified; F17.200 Nicotine dependence, unspecified, uncomplicated; Z79.899 Other long term (current) drug therapy
CPT/HCPCS: 49616; 49623; 49650; 00750; 88300; 36415; 71046; 80076; 84443; 85027; 85610; 85730; 88304; 93005; J7120; J2405